=== PATIENT | female | born 1930 | race Asian ===

== ENCOUNTER → 2016-09-22 | Outpatient (CLI) | payer MEDICARE, OTHER ==
[2016-03-13 14:45] VITALS: BP 117/68
[~2016-09-22] MED LIST: ASPI-630 PO; AZIT250T PO; CALC-98 PO; CARV12.52 PO; CEFP100T PO; CIPR500T PO; DOCU-109 PO; DULO30CA2 PO; FAMO20TA5 PO; FERR325T58 PO; HYDR-2762 PO; HYDR40TA PO; INSU100C4 SQ; INSU100I13 SQ; MULT1TAB52 PO; SIMV20TA3 PO
[2016-09-22 15:35] LABS: HEMATOCRIT 36.6 % (36.0-47.0); HEMOGLOBIN 12.1 g/dL (12.0-15.5)
[2016-09-22 15:56] LABS: ALBUMIN 3.9 g/dL (3.4-5.0); CALCIUM 9.2 mg/dL (8.5-10.1); CREATININE 1.8 mg/dL (0.6-1.0); GFR 26.8; MAGNESIUM 1.9 mg/dL (1.8-2.4); PHOSPHORUS 4.1 mg/dL (2.6-4.7); POTASSIUM 4.2 mmol/L (3.5-5.1)
[2016-09-23 04:12] LABS: MICRO CREAT RATIO <15.4 mg/g creat (0.0-30.0); MICROALB RD UR <12.0 ug/mL (Not Estab.); PROTEIN RANDOM URINE 20.6 mg/dL (Not Estab.)
[2016-09-23 06:11] LABS: CALCIUM PTH 9.5 mg/dL (8.7-10.3); CREATININE PTH 1.75 mg/dL (0.57-1.00); PTH INTACT 41 pg/mL (15-65)
== END | disposition home or self-care (01) ==
LOC: LAB 14:56
PROVIDERS: ATTEND Nurse Practitioner Family
DX: N18.3 Chronic kidney disease, stage 3 (moderate) (principal); D64.9 Anemia, unspecified; E79.0 Hyperuricemia without signs of inflammatory arthritis and tophaceous disease; E55.9 Vitamin D deficiency, unspecified; R80.9 Proteinuria, unspecified
CPT/HCPCS: 36415; 80069; 82043; 82306; 82570; 82728; 83540; 83550; 83735; 83970; 84156; 84550; 85014; 85018

== ENCOUNTER → 2016-12-21 | Outpatient (CLI) | payer MEDICARE, OTHER ==
[2016-03-13 14:45] VITALS: BP 117/68
--- NOTE | 2016-12-21 12:55 | RAD ---
Indication chronic knee pain. AP oblique and lateral views of the right knee were obtained as well as AP and lateral views of the left. Views of the right knee demonstrate postoperative changes associated with the distal femur. There is chronic deformity involving the distal femoral diaphysis which is likely posttraumatic. Lucencies in the distal femur are probably chronic. There is probable bony demineralization. An acute bony finding is not seen. A vascular stent associated with the SFA is noted. Chondrocalcinosis is noted On the left there is suspect bony demineralization. There is chondrocalcinosis. An acute bony finding is not seen. Advanced degenerative changes involving the knee are not seen. SFA vascular stent is noted. IMPRESSION: Chronic changes involving the knees. An acute finding is not seen
== END | disposition home or self-care (01) ==
LOC: DXRADRC 12:19
PROVIDERS: ATTEND Nurse Practitioner Family
DX: M11.262 Other chondrocalcinosis, left knee (principal); M11.261 Other chondrocalcinosis, right knee; V29.9XXD Motorcycle rider (driver) (passenger) injured in unspecified traffic accident, subsequent encounter
CPT/HCPCS: 73560

== ENCOUNTER 2017-02-07 06:29 | Emergency (ER) | payer MEDICARE, OTHER ==
[~2017-02-07] VITALS: Ht 149.9 cm; Wt 42.0 kg
[2017-02-07] MEDS ORDERED: ONDANSETRON PF 4 MG/2 ML VIAL. IV ONE (06:45)
[2017-02-07] MEDS ORDERED: 0.9 % SODIUM CHLORIDE 10 ML DISP.SYRIN. IV PRN (06:45)
[2017-02-07] MEDS ORDERED: IV NORMAL SALINE 1,000ML 1,000 ML IV SCH (06:45)
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
[2017-02-07] MEDS: HYDROmorphone PF 1 MG/ML DISP.SYRIN IV/SQ PRN ×2 (06:50→08:42)
--- NOTE | 2017-02-07 07:22 | RAD ---
Examination: Single portable chest History: History of pain Comparison: 03/12/2016 Finding: The cardiomediastinal grossly appears unremarkable. Medial sternotomy wires are identified. There is a 5 cm opacity identified in the left suprahilar region in the left upper lobe of the lung likely mass or focus of consolidation. Multiple kyphoplasty changes identified. Impression: 5 cm mass or focus of consolidation identified in the left upper lobe in the left suprahilar region. Recommend follow-up CT for further evaluation.
[2017-02-07 07:48] LABS: BASO # 0.1 x10^3/uL (0.0-0.2); BASO % 1 % (0-3); EOS % 0 % (0-3); HEMATOCRIT 38.1 % (36.0-47.0); HEMOGLOBIN 12.7 g/dL (12.0-15.5); LYMPH # 0.7 x10^3/uL (1.0-4.8); LYMPH % 8 % (24-48); MEAN CORPUSCULAR HEMOGLOBIN 33 pg (25-35); MEAN CORPUSCULAR HGB CONC 34 g/dL (31-37); MEAN CORPUSCULAR VOLUME 100 fL (79-100); MONO # 0.2 x10^3/uL (0.0-1.1); MONO % 2 % (0-9); NEUT # 7.9 x10^3uL (1.8-7.7); NEUT % 88 % (31-73); PLATELET COUNT 298 x10^3/uL (140-400); RED BLOOD COUNT 3.82 x10^6/uL (3.50-5.40); RED CELL DISTRIBUTION WIDTH 13.4 % (11.5-14.5); WHITE BLOOD COUNT 8.9 x10^3/uL (4.0-11.0)
[2017-02-07 08:36] LABS: BILIRUBIN,URINE NEG (NEG); CLARITY,URINE CLEAR; COLOR,URINE STRAW; GLUCOSE,URINE >=1000 mg/dL (NEG)
[2017-02-07 08:37] LABS: BACTERIA,URINE 0 /HPF (0-FEW); NITRITE,URINE NEG (NEG); RBC,URINE OCC /HPF (0-2); SQUAMOUS EPITHELIAL CELL,UR OCC /LPF; UROBILINOGEN,URINE 0.2 mg/dL (0.2 mg/dL); WBC,URINE RARE /HPF (0-4)
[2017-02-07 08:56] LABS: ALBUMIN 3.6 g/dL (3.4-5.0); ALBUMIN/GLOBULIN RATIO 0.8 (1.0-1.7); CALCIUM 9.6 mg/dL (8.5-10.1); CREATININE 0.9 mg/dL (0.6-1.0); GFR 59.7; MAGNESIUM 1.4 mg/dL (1.8-2.4); POTASSIUM 3.9 mmol/L (3.5-5.1); TOTAL BILIRUBIN 0.4 mg/dL (0.2-1.0); TOTAL PROTEIN 8.3 g/dL (6.4-8.2)
--- NOTE | 2017-02-07 09:03 | RAD ---
Examination: CT of the abdomen pelvis without contrast History: History of sudden onset of abdominal pain Comparison: 05/07/2009 Technique: Axial CT images of the abdomen and pelvis were performed without contrast. Coronal and sagittal reformats were performed. PQRS Compliance Statement: One or more of the following individualized dose reduction techniques were utilized for this examination: 1. Automated exposure control 2. Adjustment of the mA and/or kV according to patient size 3. Use of iterative reconstruction technique Findings Mild bibasal lung atelectasis. No evidence of free air identified in the abdomen. The evaluation of the solid organs is limited due to lack of IV contrast. The evaluation of bowel is limited due due to lack of oral contrast. The visualized noncontrasted liver, spleen, adrenals grossly appears unremarkable. The stomach is mildly distended. There is mild to moderate thickened appearance of the distal esophagus. There is mild thickening wall thickening of the distal stomach. The small bowel is nondilated. Feces and gas noted in the colon. Few scattered colonic diverticula identified. The appendix is normal. No evidence of intrarenal system calculi or hydronephrosis. Small cystic structure identified in the left kidney measuring 1 cm could be a cyst or cystic lesion Urinary bladder is moderately distended. Schuster catheter balloon identified in the urinary bladder. Small amount of air identified in the in the bladder Severe aortic atherosclerosis. Minimal nonspecific stranding identified in the left retroperitoneum superior to the distal tail of the pancreas and about the left kidney. Right-sided inguinal hernia is identified containing fat and omentum within. There is small amount of fluid within the herniated omentum into the right inguinal hernia region. Right hip hardware identified transfixing the intertrochanteric fracture of the right femur. Kyphoplasty changes identified in the T12, L1, L2, L3 vertebral levels. There is severe compression change of L1, L3, L5 vertebral levels Severe degenerative changes identified in the visualized lumbar spine. Laminectomy changes L3 vertebra. Impression 1. Minimal nonspecific stranding identified in the left retroperitoneum superior to the distal tail of the pancreas and about the left kidney. This is nonspecific finding. Pancreatitis is less likely. Correlate with lab values. 2. Moderate thickening of the distal esophagus could represent underlying mucosal pathology or esophagitis. There is mild thickening of the distal stomach could be gastritis. Consider endoscopic evaluation. 3. Scattered colonic diverticula. 4. Small amount of air identified in the distended urinary bladder probably secondary to Schuster catheter instrumentation. 5. Small amount of fluid and fat and omentum identified in the small right inguinal hernia. 6. Severe compression changes of lumbar vertebrae as described.
[2017-02-07] MEDS ORDERED: MAGNESIUM SULFATE 2GM 50 ML IV ONE (09:30)
[2017-02-07] MEDS ORDERED: ASPIRIN 81 MG TAB.CHEW PO ONE (10:15)
[2017-02-07 10:39] LABS: HEMOGLOBIN ISTAT 13.3 gm/dL; POTASSIUM ISTAT 3.7 mmol/L (3.5-5.0)
[2017-02-07 11:25] VITALS: BP 112/63
--- NOTE | 2017-02-07 12:45 | EKG ---
[address] [address] Test Date: 2017-02-07 Test Time: 06:34:49 Pat Name: CAROLINE CARTER Department: Room: Gender: F Master Certified Rv Technician: : 1930 Requested By: BROCK FORDE Order Number: [id number] Reading MD: Measurements Intervals [place] Rate: 81 P: 64 ND: 162 QRS: 37 QRSD: 86 T: 62 QT: 412 QTc: 479 Interpretive Statements SINUS RHYTHM LEFT ATRIAL ABNORMALITY QRS(T) CONTOUR ABNORMALITY CONSISTENT WITH ANTEROSEPTAL INFARCT AGE UNDETERMINED ABNORMAL ECG RI6.01 No previous ECG available for comparison
== END 2017-02-07 12:37 | disposition short-term general hospital (02) ==
LOC: ER 06:29
DX: R10.84 Generalized abdominal pain (principal); R53.1 Weakness; E83.42 Hypomagnesemia; I16.0 Hypertensive urgency; I11.0 Hypertensive heart disease with heart failure; I50.9 Heart failure, unspecified; R94.31 Abnormal electrocardiogram [ECG] [EKG]; R79.89 Other specified abnormal findings of blood chemistry; E11.65 Type 2 diabetes mellitus with hyperglycemia; G89.29 Other chronic pain; I25.10 Atherosclerotic heart disease of native coronary artery without angina pectoris; I25.2 Old myocardial infarction; Z95.1 Presence of aortocoronary bypass graft; Z86.73 Personal history of transient ischemic attack (TIA), and cerebral infarction without residual deficits
CPT/HCPCS: 36415; 51702; 71010; 74176; 80053; 81001; 82010; 82553; 82947; 83605; 83690; 83735; 83880; 84484; 85025; 93005; 96361; 96365; 96366; 96375; 96376; 99291; J1170; J2405; J3475; 80047; J7030

== ENCOUNTER → 2017-03-26 | Outpatient (CLI) | payer MEDICARE, OTHER ==
--- NOTE | 2017-03-26 15:16 | RAD ---
Clinical Indication: Right lower extremity pain Technique: Study is dated March 26, 2017. Grayscale, color flow and spectral waveform analysis was performed of the right lower extremity with and without compression. Findings: There is normal compressibility of all visualized vein segments. No evidence of DVT is present on grayscale or color images. There is normal phasicity of waveform. There is normal augmentation. Impression: No evidence of deep vein thrombosis.
== END | disposition home or self-care (01) ==
LOC: US 13:40
PROVIDERS: ATTEND Nurse Practitioner Family
DX: M79.604 Pain in right leg (principal)
CPT/HCPCS: 93971

== ENCOUNTER 2017-04-11 03:44 | Inpatient (IN) | payer MEDICARE, OTHER ==
[2017-04-11] VITALS (12 sets, daily range): BP systolic 81–146; BP diastolic 38–57
[~2017-04-11] VITALS: Ht 144.8 cm; Wt 42.2 kg
--- NOTE | 2017-04-11 03:48 | ED.ADGEN ---
Past History Past Medical History: Anxiety, CAD, CHF, COPD, CVA, Heart Disease, Hypertension , DC, Stroke, TIA, UTI, Other Past Surgical History: Coronary Bypass Surgery, Other Alcohol Use: None Drug Use: None Adult General Chief Complaint Chief Complaint ".. I don't feel well... " [facility] HPI Patient is a 86 year old female who presents with hx of increased nausea , vomiting x 3 days. Some complaints of dyspnea. Pt. presents with Accelerated HTN , 218/103. Pt. has extensive medical hx. of CADz,Hypothyroid, DM, Elevated Lipids, COPD, Lt. Breast mastectomy due to cancer, CHF, CVA, TIA, HTN, UTI's, CABG,Dehydration and Renal Insuf. Ect, Pt. poor historian. Pt. follows with Dr. Randa Reyes. Pt. last admitted in Jan. for Dehydration episode. Pt. per of 32 yrs advised pt. has not had any travel or specific ill contacts. Pt. has had very poor intake x 3 days. Pt. has reportedly not taken some of her meds due to nausea the last three days. Pt. advised he does not know if she had any bad food, he advised .." She only eats [place] food". Pt. has gotten very weak the last three days. Review of Systems Review of Systems Constitutional: Denies fever or chills [] Eyes: Denies change in visual acuity, redness, or eye pain [] HENT: Denies nasal congestion or sore throat [] Respiratory: Denies cough or shortness of breath [] Cardiovascular: No additional information not addressed in HPI [] GI: Denies abdominal pain, nausea, vomiting, bloody stools or diarrhea [] : Denies dysuria or hematuria [] Musculoskeletal: Denies back pain or joint pain [] Integument: Denies rash or skin lesions [] Neurologic: Denies headache, focal weakness or sensory changes [] Endocrine: Denies polyuria or polydipsia [] All other systems were reviewed and found to be within normal limits, except as documented in this note. Family History Family History Noncontributory Current Medications Current Medications Current Medications Medications (Trade) Dose Ordered Sig/Aquiles Start Time Stop Time Status Last Admin Dose Admin Clonidine HCl (Catapres) 0.1 mg 1X ONCE 04/11/17 05:15 04/11/17 05:18 DC 04/11/17 05:15 0.1 MG Enoxaparin Sodium (Lovenox) 45 mg 1X ONCE 04/11/17 06:15 04/11/17 06:16 UNV Info (Do NOT chart on this entry -- for MONITORING) 1 each PRN DAILY PRN 04/11/17 06:15 04/13/17 06:14 Labetalol HCl (Normodyne) 20 mg 1X ONCE 04/11/17 04:15 04/11/17 04:16 DC 04/11/17 04:09 20 MG Morphine Sulfate (Morphine 2mg Syringe) 2 mg 1X ONCE 04/11/17 04:45 04/11/17 04:58 DC 04/11/17 04:50 2 MG Nicardipine HCl (Cardene) 25 mg STK-MED ONCE 04/11/17 05:24 04/11/17 05:25 DC Nicardipine HCl 50 mg/Sodium Chloride 270 ml @ 0 mls/hr CONT PRN 04/11/17 05:30 04/11/17 05:37 5 MLS/HR Ondansetron HCl (Zofran) 8 mg 1X ONCE 04/11/17 05:30 04/11/17 05:31 DC 04/11/17 05:30 8 MG Potassium Chloride 100 ml @ 50 mls/hr Q1H 04/11/17 06:00 04/11/17 07:59 UNV Sodium Chloride 250 ml @ As Directed STK-MED ONCE 04/11/17 05:24 04/11/17 05:25 DC Allergies Allergies Allergies Coded Allergies Type Severity Reaction Last Updated Verified No Known Drug Allergies 05/16/14 No Physical Exam Physical Exam Constitutional: In acute distress, Chronically ill in appearance. [] HENT: Normocephalic, atraumatic, bilateral external ears normal, oropharynx dry , no oral exudates, nose normal. [] Eyes: PERRLA, EOMI, conjunctiva normal, no discharge. [] Neck: Normal range of motion, no tenderness, supple, no stridor. Old scar. Cardiovascular:Tachycardia rate regular rhythm, no murmur [] Lungs & Thorax: Bilateral breath sounds equal with scattered wheezes and some crackles on auscultation . Mid line scar, and Lt mastectomy scar. Abdomen: Bowel sounds normal, soft, lower mid abdomen tenderness, no masses, no pulsatile masses. Scar Skin: Warm, dry, no erythema, no rash. Poor turgor Back: No tenderness, no CVA tenderness. scars, kyphosis. Extremities: No tenderness, no cyanosis, no clubbing, ROM intact, no edema. Arthritic changes. Generalized weakness. Left femoral scar. Right hip scar Neurologic: Alert and oriented X 3, generalized motor weakness , no gross sensory loss, no gross focal deficits noted. states her mental status is at baseline Psychologic: Affect flat, judgement unable to determine at this time, mood depressed Current Patient Data Vital Signs Vital Signs Date Time Temp Pulse Resp B/P (MAP) Pulse Ox O2 Delivery O2 Flow Rate FiO2 04/11/17 05:41 88 161/67 (98) 97 04/11/17 05:30 20 Lab Results Laboratory Tests Test 04/11/17 04:00 04/11/17 05:05 White Blood Count 8.9 x10^3/uL (4.0-11.0) Red Blood Count 3.85 x10^6/uL (3.50-5.40) Hemoglobin 12.7 g/dL (12.0-15.5) Hematocrit 37.4 % (36.0-47.0) Mean Corpuscular Volume 97 fL (79-100) Mean Corpuscular Hemoglobin 33 pg (25-35) Mean Corpuscular Hemoglobin Concent 34 g/dL (31-37) Red Cell Distribution Width 15.3 % (11.5-14.5) H Platelet Count 310 x10^3/uL (140-400) Neutrophils (%) (Auto) 83 % (31-73) H Lymphocytes (%) (Auto) 13 % (24-48) L Monocytes (%) (Auto) 3 % (0-9) Eosinophils (%) (Auto) 1 % (0-3) Basophils (%) (Auto) 1 % (0-3) Neutrophils # (Auto) 7.4 x10^3uL (1.8-7.7) Lymphocytes # (Auto) 1.1 x10^3/uL (1.0-4.8) Monocytes # (Auto) 0.2 x10^3/uL (0.0-1.1) Eosinophils # (Auto) 0.1 x10^3/uL (0.0-0.7) Basophils # (Auto) 0.1 x10^3/uL (0.0-0.2) Prothrombin Time 11.2 SEC (9.4-11.4) Prothrombin Time INR 1.1 (0.9-1.1) PTT 24 SEC (23-33) D-Dimer (Zaida) 7.61 mg/L (0.00-0.50) H Urine Collection Type U cath Urine Color Yellow Urine Clarity Clear Urine pH 7.0 Urine Specific [place] 1.020 Urine Protein >100 mg/dl (NEG-TRACE) Urine Glucose (UA) 500 mg/dL (NEG) Urine Ketones (Stick) Neg mg/dL (NEG) Urine Blood Trace (NEG) Urine Nitrite Neg (NEG) Urine Bilirubin Neg (NEG) Urine Urobilinogen Dipstick 0.2 mg/dL (0.2 mg/dL) Urine Leukocyte Esterase Neg (NEG) Urine RBC Occ /HPF (0-2) Urine WBC Rare /HPF (0-4) Urine Squamous Epithelial Cells Occ /LPF Urine Bacteria 0 /HPF (0-FEW) Sodium Level 140 mmol/L (136-145) Potassium Level 3.0 mmol/L (3.5-5.1) L Chloride Level 102 mmol/L (98-107) Carbon Dioxide Level 25 mmol/L (21-32) Anion Gap 13 (6-14) Blood Urea Nitrogen 25 mg/dL (7-20) H Creatinine 0.9 mg/dL (0.6-1.0) Estimated GFR (Cockcroft-Gault) 59.7 BUN/Creatinine Ratio 28 (6-20) H Glucose Level 300 mg/dL (70-99) H Calcium Level 8.7 mg/dL (8.5-10.1) Magnesium Level 1.3 mg/dL (1.8-2.4) L Total Bilirubin 0.2 mg/dL (0.2-1.0) Aspartate Amino Transferase (AST) 29 U/L (15-37) Alanine Aminotransferase (ALT) 21 U/L (14-59) Alkaline Phosphatase 94 U/L (46-116) Creatine Kinase 25 U/L (26-192) L Creatine Kinase MB (Mass) 1.9 ng/mL (0.0-3.6) Creatine Kinase MB Relative Index 7.6 % (0-4) H Troponin I Quantitative < 0.017 ng/mL (0-0.055) WR-Scr-X-Type Natriuretic Peptide 5075 pg/mL (0-449) H Total Protein 7.4 g/dL (6.4-8.2) Albumin 3.1 g/dL (3.4-5.0) L Albumin/Globulin Ratio 0.7 (1.0-1.7) L Amylase Level 38 U/L (25-115) Lipase 190 U/L (73-393) Urine Opiates Screen Neg (NEG) Urine Methadone Screen Neg (NEG) Urine Barbiturates Neg (NEG) Urine Phencyclidine Screen Neg (NEG) Urine Amphetamine/Methamphetamine Neg (NEG) Urine Benzodiazepines Screen Neg (NEG) Urine Cocaine Screen Neg (NEG) Urine Cannabinoids Screen Neg (NEG) Urine Ethyl Alcohol Neg (NEG) EKG EKG My interpretation EKG shows a sinus rhythm at 81 bpm. There is some bimodal P- wave's and prolonged QT interval.[] Radiology/Procedures Radiology/Procedures My interpretation of chest x-ray shows borderline cardiomegaly. Chronic pulmonary changes with clips in left upper quadrant-mastectomy, coronary bypass sternal wires, vertebral plasty, degenerative joint changes, does have a left upper lobe infiltrate but this is present on previous x-ray of 02/07. Abdomen film shows no obvious free air under diaphragm. Does have a right upper quadrant surgical clips as well as placement of a vena cava filter. Hardware right hip. A few isolated bowel loops. My interpretation CT of head shows marked generalized atrophy, no shift, mass, edema, bleed or fracture. Generalized degenerative joint changes of cervical. CT of chest pending at time of admission- valuation of left upper lung infiltrate/scarring.(Present On last chest x-ray of 02/07) Course & Med Decision Making Course & Med Decision Making Pertinent Labs and Imaging studies reviewed. (See chart for details) Discussed presentation, testing and tx. plan with Dr. Nuñez - admit to ICU. Electrolytes still pending at time of admit- [] Final Impression Final Impression 1. Nausea/ Vomiting 2. Accelerated Hypertension 3. Dehydration 4. Hyperglycemia-diabetes 5. Elevated d-dimer 6. CHF 7. Hypokalemia 8. Hypomagnesemia 9. Malnutrition albumin 3.1 10. Dyspnea Problems: Dragon Disclaimer Dragon Disclaimer This electronic medical record was generated, in whole or in part, using a voice recognition dictation system. SILVIA ESPANA MD Apr 11, 2017 03:48
[2017-04-11] MEDS ORDERED: ONDANSETRON PF 4 MG/2 ML VIAL. IV ONE ×2 (04:15→05:30)
[2017-04-11] MEDS ORDERED: IV NORMAL SALINE 1,000ML 1,000 ML IV SCH (04:15)
[2017-04-11] MEDS ORDERED: LABETALOL 20 MG/4 ML DISP.SYRIN. IVP ONE (04:15)
[2017-04-11 04:20] LABS: BASO # 0.1 x10^3/uL (0.0-0.2); BASO % 1 % (0-3); EOS # 0.1 x10^3/uL (0.0-0.7); EOS % 1 % (0-3); HEMATOCRIT 37.4 % (36.0-47.0); HEMOGLOBIN 12.7 g/dL (12.0-15.5); LYMPH # 1.1 x10^3/uL (1.0-4.8); LYMPH % 13 % (24-48); MEAN CORPUSCULAR HEMOGLOBIN 33 pg (25-35); MEAN CORPUSCULAR HGB CONC 34 g/dL (31-37); MEAN CORPUSCULAR VOLUME 97 fL (79-100); MONO # 0.2 x10^3/uL (0.0-1.1); MONO % 3 % (0-9); NEUT # 7.4 x10^3uL (1.8-7.7); NEUT % 83 % (31-73); PLATELET COUNT 310 x10^3/uL (140-400); RED BLOOD COUNT 3.85 x10^6/uL (3.50-5.40); RED CELL DISTRIBUTION WIDTH 15.3 % (11.5-14.5); WHITE BLOOD COUNT 8.9 x10^3/uL (4.0-11.0)
[2017-04-11] MEDS ORDERED: MORPHINE SULFATE 2 MG/ML DISP.SYRIN. IV ONE (04:45)
[2017-04-11] MEDS ORDERED: cloNIDine HCL 0.1 MG TABLET PO ONE (05:15)
[2017-04-11] MEDS ORDERED: IV NORMAL SALINE 250ML 250 ML ONE (05:24)
[2017-04-11 05:32] LABS: CLARITY,URINE CLEAR; COLOR,URINE YELLOW
[2017-04-11 05:33] LABS: BACTERIA,URINE 0 /HPF (0-FEW); BILIRUBIN,URINE NEG (NEG); GLUCOSE,URINE 500 mg/dL (NEG); NITRITE,URINE NEG (NEG); RBC,URINE OCC /HPF (0-2); SQUAMOUS EPITHELIAL CELL,UR OCC /LPF; UROBILINOGEN,URINE 0.2 mg/dL (0.2 mg/dL); WBC,URINE RARE /HPF (0-4)
[2017-04-11 05:36] LABS: BARBITURATES NEG (NEG); BENZODIAZEPINES NEG (NEG); CANNABINOIDS NEG (NEG); COCAINE NEG (NEG); METHADONE NEG (NEG); OPIATES NEG (NEG); PHENCYCLIDINE NEG (NEG)
--- NOTE | 2017-04-11 05:36 | RAD ---
INDICATION: Mental status change with nausea. Concern for central nervous system pathology or cervical spine injury COMPARISON: February 2016 TECHNIQUE: Axial CT images obtained through the head and cervical spine without intravenous contrast. Coronal and sagittal reformats processed of cervical spine. One or more of the following individualized dose reduction techniques were utilized for this examination: 1. Automated exposure control; 2. Adjustment of the mA and/or kV according to patient size; 3. Use of iterative reconstruction technique. FINDINGS: Head: Motion somewhat limits exam. Calcific atherosclerosis. No evidence of midline shift. Suprasellar cistern is not effaced. Global prominence of ventricles and sulci. Multifocal regions of low attenuation within the white matter. Nonspecific but can be seen with chronic small vessel ischemic disease. More focal region of low-attenuation in the left frontal region is again seen and could be from remote infarct. No definite acute hemorrhage. Cervical: No definite acute fracture. No significant malalignment. No evidence of perivertebral hematoma. Degenerative changes throughout the cervical spine with multilevel central canal and neural foraminal stenosis. Severe calcific atherosclerosis. There is some suspected cystic changes at the lung apices as well as interstitial thickening most prominent at left lung apex. IMPRESSION: No acute intracranial hemorrhage. Evidence of old infarct as well as low-attenuation within the white matter. Nonspecific in nature but can be seen with chronic small vessel ischemic disease. No definite acute fracture or dislocation of the cervical spine. Multilevel degenerative changes throughout the cervical spine with central canal and neural foraminal stenosis. Cystic changes at the partially visualized lung apices. Would correlate for possible causes such as emphysema. There is also some mild interstitial thickening suspected at lung apices. Could be a chronic finding but mild edema can also have this appearance. Electronically signed by: Omkar Swartz MD (04/11/2017 5:32 AM) [facility] [place]
[2017-04-11 05:37] LABS: AMPHETAMINE/METHAMPHETAMINE NEG (NEG)
[2017-04-11 05:51] LABS: ALBUMIN 3.1 g/dL (3.4-5.0); ALBUMIN/GLOBULIN RATIO 0.7 (1.0-1.7); CALCIUM 8.7 mg/dL (8.5-10.1); CREATININE 0.9 mg/dL (0.6-1.0); GFR 59.7; MAGNESIUM 1.3 mg/dL (1.8-2.4); TOTAL BILIRUBIN 0.2 mg/dL (0.2-1.0); TOTAL PROTEIN 7.4 g/dL (6.4-8.2)
[2017-04-11] MEDS ORDERED: POTASSIUM CHLORIDE 20MEQ 100 ML IV SCH (06:00)
[2017-04-11] MEDS ORDERED: CONTRAST GIVEN MC PRN (06:15)
[2017-04-11] MEDS ORDERED: INSULIN REGULAR 150 UNIT in 0.9 % SODIUM CHLORIDE 150ML 150 ML IV ONE (06:30)
[2017-04-11] MEDS ORDERED: MAGNESIUM SULFATE 2GM 50 ML IV ONE (06:30)
[2017-04-11] MEDS ORDERED: IOHEXOL 300 MG/ML 75 ML VIAL. IV ONE (06:30)
[2017-04-11] MEDS ORDERED: ENOXAPARIN ** NOTE DOSE ** SYRINGE SQ ONE (07:00)
--- NOTE | 2017-04-11 07:03 | RAD ---
INDICATION: Omni 300 75ml IV given, pe protocol
Dyspnea, elevated DDimer
Hx Diabetes - not on metformin, Lung cancer COMPARISON: None. TECHNIQUE: Axial CT images obtained through the chest. Intravenous contrast utilized. Angiogram 3D images processed per protocol. One or more of the following individualized dose reduction techniques were utilized for this examination: 1. Automated exposure control; 2. Adjustment of the mA and/or kV according to patient size; 3. Use of iterative reconstruction technique. FINDINGS: Large spiculated mass left upper lung measuring approximately 46 x 50 x 43 mm. There is adjacent interstitial and nodular opacities throughout the adjacent lung most severe in the left upper lung. Linear opacity in the right lung, could be atelectasis or scarring. There are some patchy groundglass opacities in the right lung including superior segment right lower lobe. There are some regions of bronchiectasis with peribronchial thickening. There are some more subtle regions of nodularity within the right lung. In partially visualized abdomen there is postcholecystectomy changes with common bile duct dilated up to 18 mm. Moderate hiatal hernia. Severe calcific atherosclerosis. Severe coronary artery calcific atherosclerosis. There are some scattered lymph nodes seen within the mediastinum and left hilar region which are mildly prominent. The patient's left upper lung mass abuts the mediastinum with no definite fat plane seen between the mass and a portion of the adjacent aorta. Also abuts and narrows the pulmonary arteries extending to the left upper lobe. There is some apparent old rib fractures. Poststernotomy changes. Metallic density structures in the left axilla, likely postprocedural. There is likely some old left rib fractures. Compression fractures are identified at T7, T12, L1 and L2 with kyphoplasty changes. There is retropulsion and central canal narrowing associated with the L1 fracture. There couple of subcentimeter sclerotic foci in the osseous structures. This is very commonly seen and could be from bone island but given the other findings neoplastic involvement is not excluded on this exam. Main pulmonary artery is prominent in size measuring up to about 29 mm. Many of the pulmonary artery branches extending to left upper lung are destroyed by the left upper lung mass. There is a nodule or small aneurysmal outpouching of the descending thoracic aorta in the left lower chest measuring up to about 7 mm. No embolus in main, right main or left main pulmonary artery. IMPRESSION: 1. Large left upper lung mass with adjacent interstitial and nodular opacities within the left lung. This could be secondary to a lung neoplasm with adjacent interstitial spread of tumor. Cannot exclude superimposed infectious etiology given these findings. 2. There are some enlarged lymph nodes within the mediastinum and left hilum. Given the other finding this could be involved with the neoplasm although some of these could be reactive as well. 3. Severe calcific atherosclerosis including of coronary arteries. 4. Hiatal hernia. 5. The partially visualized common bile duct is dilated. This could be from the patient's postcholecystectomy state but cannot exclude a pathologic process such as a distal stricture, stone or lesion. 6. No embolus in the main pulmonary arteries. The pulmonary arteries to left upper lung appear largely destroyed by the left upper lung mass. Prominent size of the main pulmonary artery. Causes such as pulmonary artery hypertension are possible. 7. Groundglass opacity within the right lung. Could be infectious or inflammatory in nature but given the patient's other findings neoplastic causes not excluded. Electronically signed by: Omkar Swartz MD (04/11/2017 7:00 AM) [id number]
--- NOTE | 2017-04-11 07:03 | EKG ---
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
--- NOTE | 2017-04-11 07:23 | RAD ---
Acute abdomen series with chest, 04/11/2017: History: Abdominal pain and nausea The abdominal gas pattern is unremarkable. No free air seen in the abdomen. An inferior vena cava filter is in place at the L2-3 level. Surgical clips are present in the right upper quadrant. There are scattered vascular calcifications. A vascular stent is projected over the left common iliac region. The bony structures are demineralized. Vertebroplasty changes are present at multiple levels in the lumbar and thoracic spine. An internal metallic fixation device is present at the right hip. There has been a previous median sternotomy. The heart size is normal. A moderate-sized left upper lobe opacity has developed since 05/16/2014. There are scattered parenchymal scars. There is no evidence of pleural fluid or pneumothorax. Surgical clips are present in the left axillary region. IMPRESSION: 1. No acute abdominal abnormality is detected. 2. New left upper lobe pulmonary opacity suggesting a pulmonary neoplasm. An infectious process is less likely.
[2017-04-11] MEDS ORDERED: DEXTROSE 50% 25 GM / 50ML DISP.SYRIN. IV PRN (07:30)
[2017-04-11] MEDS: INSULIN ASPART 300 UNITS/3 ML INSULN.PEN SQ SCH ×4 (08:13→21:21)
[2017-04-11] MEDS ORDERED: CARVEDILOL 12.5 MG TABLET PO SCH ×3 (09:00→17:00)
--- NOTE | 2017-04-11 09:36 | PDOC2 ---
YEIMY OBREGON APRN 04/11/17 0936: CONSULT Date of Admission DATE: 04/11/17 TIME: 09:19 Reason for Consult: hypertension Problem List Problems Medical Problems: (1) Dehydration Status: Acute History of Present Illness Ms Reyes is an 85 year old female with history of coronary artery disease, CABG , PAD with stents and CVA. She presented to the ED with complaints of several days nausea and vomiting. She was noted to have significantly elevated blood pressure so Cardene was started and consult was called. She is currently resting quietly with family at bedside. She has had no chest pain. She does have some dyspnea that is at baseline. She follows with [facility] cardiology. She is now tolerating oral medications Past Medical History hypertension, osteoporosis, CAD, OH, CVA, TIA, PVD, diabetes mellitus, dyslipidemia, chronic low back pain, depression, chronic kidney disease, amenia , COPD She normally follows with Dr Ba for CAD Echo 02/2016 The left ventricle is hyperdynamic. The Ejection Fraction is 70%. There is normal LV segmental wall motion. Tissue Doppler imaging reveals mild left ventricular diastolic dysfunction. Doppler and Color Flow revealed mild aortic regurgitation. Doppler and Color Flow revealed mild tricuspid regurgitation. The PA pressure was estimated at 30 mmHg. Past Surgical History cholecystectomy, neck surgery, hysterectomy, left mastectomy, vertebroplasty, PAD with stent, Hip surgery Family History CAD, CAF, OH, CABG Social History non smoker, no significant ETOH, no illicit drugs Current Medications Current Medications Sodium Chloride 1,000 ml @ 1,000 mls/hr Q1H IV Last administered on 04:15; Start 04/11/17 at 04:15; Stop 04/11/17 at 05:14; Status DC Ondansetron HCl (Zofran) 8 mg 1X ONCE IV Last administered on 04/11/17 04:07 ; Start 04/11/17 at 04:15; Stop 04/11/17 at 04:16; Status DC Labetalol HCl (Normodyne) 20 mg 1X ONCE IVP Last administered on 04/11/17 04 :09; Start 04/11/17 at 04:15; Stop 04/11/17 at 04:16; Status DC Morphine Sulfate (Morphine 2mg Syringe) 2 mg 1X ONCE IV Last administered on 04/11/17 04:50; Start 04/11/17 at 04:45; Stop 04/11/17 at 04:58; Status DC Clonidine HCl (Catapres) 0.1 mg 1X ONCE PO Last administered on 04/11/17 05: 15; Start 04/11/17 at 05:15; Stop 04/11/17 at 05:18; Status DC Nicardipine HCl 50 mg/Sodium Chloride 270 ml @ 0 mls/hr CONT PRN IV SEE I/O RECORD Last administered on 04/11/17 05:37; Start 04/11/17 at 05:30 Ondansetron HCl (Zofran) 8 mg 1X ONCE IV Last administered on 04/11/17 05:30 ; Start 04/11/17 at 05:30; Stop 04/11/17 at 05:31; Status DC Sodium Chloride 250 ml @ As Directed STK-MED ONCE .ROUTE ; Start 04/11/17 at 05:24; Stop 04/11/17 at 05:25; Status DC Nicardipine HCl (Cardene) 25 mg STK-MED ONCE IV ; Start 04/11/17 at 05:24; Stop 04/11/17 at 05:25; Status DC Potassium Chloride 100 ml @ 50 mls/hr Q1H IV ; Start 04/11/17 at 06:00; Stop 04/11/17 at 07:59; Status UNV Magnesium Sulfate 50 ml @ 25 mls/hr 1X ONCE IV ; Start 04/11/17 at 06:30; Stop 04/11/17 at 08:30; Status DC Insulin Human Regular 150 unit/ Sodium Chloride 151.5 ml @ 0 mls/hr 1X ONCE IV ; Start 04/11/17 at 06:30; Stop 04/11/17 at 06:31; Status DC Potassium Chloride 100 ml @ 100 mls/hr Q1H IV ; Start 04/11/17 at 06:30; Stop 04/11/17 at 10:29 Enoxaparin Sodium (Lovenox 60mg Syringe) 50 mg 1X ONCE SQ ; Start 04/11/17 at 07:00; Stop 04/11/17 at 07:01; Status DC Iohexol (Omnipaque 300 Mg/ml) 75 ml 1X ONCE IV Last administered on 06:31; Start 04/11/17 at 06:30; Stop 11/29/17 at 06:31; Status DC Info (Do NOT chart on this entry -- for MONITORING) 1 each PRN DAILY PRN MC SEE COMMENTS; Start 04/11/17 at 06:15; Stop 04/13/17 at 06:14 Insulin Aspart (NovoLOG) 0-9 UNITS QIDACHS SQ Last administered on 04/11/17t 08:13; Start 04/11/17 at 07:30 Dextrose 12.5 gm PRN Q15MIN PRN IV SEE COMMENTS; Start 04/11/17 at 07:30 Active Scripts Active Lantus Solostar (Insulin Glargine,Hum.rec.anlog) 100 Unit/1 Ml Insuln.pen 5 Unit SQ QHS LAST DOSE GIVEN: DATE: YESTERDAY TIME: AT BEDTIME NEXT DOSE DUE: DATE: TODAY TIME: AT BEDTIME Reported Colace (Docusate Sodium) 100 Mg Capsule 100 Mg PO BID LAST DOSE GIVEN: DATE: TODAY TIME: AM NEXT DOSE DUE: DATE: TODAY TIME: PM Hysingla ER (Hydrocodone Bitartrate) 40 Mg Tab.er.24h 50 Mg PO DAILYWLUN LAST DOSE GIVEN: DATE: TODAY TIME: WITH LUNCH NEXT DOSE DUE: DATE: TOMORROW TIME: WITH LUNCH Simvastatin 20 Mg Tablet 20 Mg PO QHS LAST DOSE GIVEN: DATE: YES TIME: AT BEDTIME NEXT DOSE DUE: DATE: TODAY TIME: AT BEDTIME Multivitamins (Multivitamin) 1 Each Tablet 1 Tab PO DAILY LAST DOSE GIVEN: DATE: TIME: AM NEXT DOSE DUE: DATE: TOMORROW TIME: AM Famotidine 20 Mg Tablet 20 Tab PO HS LAST DOSE GIVEN: DATE: YESTER TIME: AT BEDTIME NEXT DOSE DUE: DATE: TODAY TIME: AT BEDTIME Cymbalta (Duloxetine Hcl) 30 Mg Capsule.dr 30 Mg PO HS LAST DOSE GIVEN: DATE: YESTER TIME: AT BEDTIME NEXT DOSE DUE: DATE: TODAY TIME: AT BEDTIME Carvedilol 12.5 Mg Tablet 1 Tab PO BID LAST DOSE GIVEN: DATE: TODAY TIME: WITH BREAKFAST NEXT DOSE DUE: DATE: TODAY TIME: WITH DINNER Calcium + Vitamin D Tablet (Calcium Carbonate/Vitamin D3) 1 Each Tablet 1 Each PO BID LAST DOSE GIVEN: DATE: TODAY TIME: AM NEXT DOSE DUE: DATE: TODAY TIME: PM Aspirin 81 Mg Tab.chew 81 Mg PO DAILY LAST DOSE GIVEN: DATE: TODAY TIME: AM NEXT DOSE DUE: DATE: TOMORROW TIME: AM Allergies: Coded Allergies: No Known Drug Allergies (Unverified , 05/16/14) Review of System as per HPI General: Cooperative, No acute distress Lungs: Clear to auscultation Heart: Normal S1, Normal S2, Other (no gallops, clicks or rubs) Abdomen: Normal bowel sounds, Soft Extremities: No cyanosis, No edema VITALS Vital Signs Date Time Temp Pulse Resp B/P (MAP) Pulse Ox O2 Delivery O2 Flow Rate FiO2 04/11/17 07:52 97.2 92 20 146/57 (86) 98 Room Air Labs Laboratory Tests Test 04/11/17 04:00 04/11/17 05:05 04/11/17 07:46 White Blood Count 8.9 x10^3/uL (4.0-11.0) Red Blood Count 3.85 x10^6/uL (3.50-5.40) Hemoglobin 12.7 g/dL (12.0-15.5) Hematocrit 37.4 % (36.0-47.0) Mean Corpuscular Volume 97 fL (79-100) Mean Corpuscular Hemoglobin 33 pg (25-35) Mean Corpuscular Hemoglobin Concent 34 g/dL (31-37) Red Cell Distribution Width 15.3 % (11.5-14.5) Platelet Count 310 x10^3/uL (140-400) Neutrophils (%) (Auto) 83 % (31-73) Lymphocytes (%) (Auto) 13 % (24-48) Monocytes (%) (Auto) 3 % (0-9) Eosinophils (%) (Auto) 1 % (0-3) Basophils (%) (Auto) 1 % (0-3) Neutrophils # (Auto) 7.4 x10^3uL (1.8-7.7) Lymphocytes # (Auto) 1.1 x10^3/uL (1.0-4.8) Monocytes # (Auto) 0.2 x10^3/uL (0.0-1.1) Eosinophils # (Auto) 0.1 x10^3/uL (0.0-0.7) Basophils # (Auto) 0.1 x10^3/uL (0.0-0.2) Prothrombin Time 11.2 SEC (9.4-11.4) Prothromb Time International Ratio 1.1 (0.9-1.1) Activated Partial Thromboplast Time 24 SEC (23-33) D-Dimer (Zaida) 7.61 mg/L (0.00-0.50) Urine Collection Type U cath Urine Color Yellow Urine Clarity Clear Urine pH 7.0 Urine Specific [place] 1.020 Urine Protein >100 mg/dl (NEG-TRACE) Urine Glucose (UA) 500 mg/dL (NEG) Urine Ketones (Stick) Neg mg/dL (NEG) Urine Blood Trace (NEG) Urine Nitrite Neg (NEG) Urine Bilirubin Neg (NEG) Urine Urobilinogen Dipstick 0.2 mg/dL (0.2 mg/dL) Urine Leukocyte Esterase Neg (NEG) Urine RBC Occ /HPF (0-2) Urine WBC Rare /HPF (0-4) Urine Squamous Epithelial Cells Occ /LPF Urine Bacteria 0 /HPF (0-FEW) Sodium Level 140 mmol/L (136-145) Potassium Level 3.0 mmol/L (3.5-5.1) Chloride Level 102 mmol/L (98-107) Carbon Dioxide Level 25 mmol/L (21-32) Anion Gap 13 (6-14) Blood Urea Nitrogen 25 mg/dL (7-20) Creatinine 0.9 mg/dL (0.6-1.0) Estimated GFR (Cockcroft-Gault) 59.7 BUN/Creatinine Ratio 28 (6-20) Glucose Level 300 mg/dL (70-99) Calcium Level 8.7 mg/dL (8.5-10.1) Magnesium Level 1.3 mg/dL (1.8-2.4) Total Bilirubin 0.2 mg/dL (0.2-1.0) Aspartate Amino Transf (AST/SGOT) 29 U/L (15-37) Alanine Aminotransferase (ALT/SGPT) 21 U/L (14-59) Alkaline Phosphatase 94 U/L (46-116) Creatine Kinase 25 U/L (26-192) Creatine Kinase MB (Mass) 1.9 ng/mL (0.0-3.6) Creatine Kinase MB Relative Index 7.6 % (0-4) Troponin I Quantitative < 0.017 ng/mL (0-0.055) KE-Duh-I-Type Natriuretic Peptide 5075 pg/mL (0-449) Total Protein 7.4 g/dL (6.4-8.2) Albumin 3.1 g/dL (3.4-5.0) Albumin/Globulin Ratio 0.7 (1.0-1.7) Amylase Level 38 U/L (25-115) Lipase 190 U/L (73-393) Urine Opiates Screen Neg (NEG) Urine Methadone Screen Neg (NEG) Urine Barbiturates Neg (NEG) Urine Phencyclidine Screen Neg (NEG) Urine Amphetamine/Methamphetamine Neg (NEG) Urine Benzodiazepines Screen Neg (NEG) Urine Cocaine Screen Neg (NEG) Urine Cannabinoids Screen Neg (NEG) Urine Ethyl Alcohol Neg (NEG) Glucose (Fingerstick) 251 mg/dL (70-99) Images EKG - sinus rhythm, non specific st/t abn, QTC 475 CTA 1. Large left upper lung mass with adjacent interstitial and nodular opacities within the left lung. This could be secondary to a lung neoplasm with adjacent interstitial spread of tumor. Cannot exclude superimposed infectious etiology given these findings. 2. There are some enlarged lymph nodes within the mediastinum and left hilum. Given the other finding this could be involved with the neoplasm although some of these could be reactive as well. 3. Severe calcific atherosclerosis including of coronary arteries. 4. Hiatal hernia. 5. The partially visualized common bile duct is dilated. This could be from the patient's postcholecystectomy state but cannot exclude a pathologic process such as a distal stricture, stone or lesion. 6. No embolus in the main pulmonary arteries. The pulmonary arteries to left upper lung appear largely destroyed by the left upper lung mass. Prominent size of the main pulmonary artery. Causes such as pulmonary artery hypertension are possible. 7. Groundglass opacity within the right lung. Could be infectious or inflammatory in nature but given the patient's other findings neoplastic causes not excluded. CT head and C spine IMPRESSION: No acute intracranial hemorrhage. Evidence of old infarct as well as low-attenuation within the white matter. Nonspecific in nature but can be seen with chronic small vessel ischemic disease. No definite acute fracture or dislocation of the cervical spine. Multilevel degenerative changes throughout the cervical spine with central canal and neural foraminal stenosis. Cystic changes at the partially visualized lung apices. Would correlate for possible causes such as emphysema. There is also some mild interstitial thickening suspected at lung apices. Could be a chronic finding but mild edema can also have this appearance. Abd series IMPRESSION: 1. No acute abdominal abnormality is detected. 2. New left upper lobe pulmonary opacity suggesting a pulmonary neoplasm. An infectious process is less likely. Assessment/Plan 1. accelerated hypertension - likely secondary to GI upset and missed medications. Resume home coreg and titrate off Cardene. 2. Gastroenteritis - taking oral at this time. per IM 3. dehydration and electrolyte imbalance - per IM 4. CAD/CABG status - request recent records from [facility]. Check echo. no acute EKG changes. Angina free. Continue med Rx. 5. lung CA - she apparently has follow up with oncology in Apr for POC 6. PHTN 7. hyperlipidemia 8. diabetes mellitus Problems: TEDDY FELTON MD 04/11/17 1600: CONSULT Allergies: Coded Allergies: No Known Drug Allergies (Unverified , 05/16/14) Assessment/Plan Pt. seen and examined. Agree with above [facility] note. Echo wnl. SUpportive care. Thanks for consult. Problems: YEIMY OBREGON APRN Apr 11, 2017 09:36 TEDDY FELTON MD Apr 11, 2017 16:00
[2017-04-11] MEDS ORDERED: INSU100I17 SQ (09:45)
[2017-04-11] MEDS ORDERED: INSU100I13 SQ (09:45)
[2017-04-11] MEDS ORDERED: ONDANSETRON PF 4 MG/2 ML VIAL. IV PRN (10:30)
[2017-04-11] MEDS: POTASSIUM CHLORIDE 10MEQ 100 ML IV SCH ×4 (12:04→16:06)
[2017-04-11] MEDS ORDERED: POTASSIUM CHLORIDE 10MEQ 100 ML IV ONE (15:04)
--- NOTE | 2017-04-11 16:57 | CARD ---
APPROVED REPORT EXAM: LIMITED Two-dimensional echocardiogram. Other Information Quality : Average Rhythm : NSR INDICATION Hypertension/HCVD Cardiac Disease: CAD 2D DIMENSIONS Left Atrium(2D)2.8 (1.6-4.0cm)IVSd1.2 (0.7-1.1cm) Aortic Root(2D)2.8 (2.0-3.7cm)LVDd3.4 (3.9-5.9cm) PWd1.2 (0.7-1.1cm)LVDs2.2 (2.5-4.0cm) FS (%) 35.1 %SV31.9 ml LVEF(%)65.6 (>50%) LEFT VENTRICLE The left ventricle is normal size. There is borderline concentric left ventricular hypertrophy. Left ventricle systolic function is normal. The Ejection Fraction is 60-65%. There is normal LV segmental wall motion. RIGHT VENTRICLE The right ventricle is normal size. The right ventricular systolic function is normal. ATRIA The left atrium size is normal. GREAT VESSELS The aortic root is normal in size. PERICARDIAL EFFUSION There is no evidence of significant pericardial effusion. Critical Notification Critical Value: No <Conclusion> Left ventricle systolic function is normal. The Ejection Fraction is 60-65%. There is normal LV segmental wall motion. Limited echo for LV function only.
[2017-04-11] MEDS: IV DEXTROSE 5 %-0.45 % NACL 1,000 ML IV SCH ×2 (17:28→18:14)
[2017-04-11] MEDS: PANTOPRAZOLE IV PUSH 40 MG VIAL. IVP SCH (17:29)
[2017-04-11] MEDS: CARVEDILOL 12.5 MG TABLET PO SCH (17:29)
[2017-04-12] VITALS (16 sets, daily range): BP systolic 88–148; BP diastolic 38–64
--- NOTE | 2017-04-12 03:25 | HP ---
ADMIT DATE: 04/11/2017 HISTORY OF PRESENT ILLNESS: This is an 86-year-old female with multiple severe medical problems who according to her threw up several times and was not able to eat and became dehydrated, was also nauseated, a little bit dyspneic and markedly elevated blood pressure of 218/103. PAST MEDICAL HISTORY: Extensive. She has lung cancer. She has a left lung tumor, which so far due to her weakness have not been able to do anything as far as radiation. She is too weak to undergo chemotherapy. Other medical problems include coronary artery disease with stent placement, hypertension, hyperlipidemia, type 2 diabetes, multiple TIAs, chronic back and knee pain and also the lung cancer was diagnosed 6 months ago. ALLERGIES: No known allergies. MEDICATIONS: Reviewed. The patient is given her hypertensive medications. REVIEW OF SYSTEMS: Unable to obtain due to patient being up all night, not feeling well and sleeping at the present time; sleeping, but arousable. Positive for stomach pain. SOCIAL HISTORY: She lives at home with her . She has a son. She quit smoking 10 years ago. No alcohol at the present time. There appears to be some weight loss, was evidenced by her weight. OBJECTIVE: VITAL SIGNS: Height 57 inches, weight 83.19 pounds, blood pressure 119/48, pulse 74, respirations 18, pulse ox 97% on room air. GENERAL: She is sleeping, but arousable. Tongue is slightly dry. Nose was patent. Throat was clear. She was able to stick her tongue out. LUNGS: Clear to auscultation. CARDIOVASCULAR: Irregular rhythm and rate. ABDOMEN: Soft, nontender. EXTREMITIES: Without edema. IMAGING: CTA shows a large left upper lung mass with opacities within the left lung. Appears to have gotten bigger according to the . Enlarged lymph nodes as well. Hiatal hernia. Missing gallbladder. Ground glass opacity in the right lung. Multilevel degenerative disk disease. ASSESSMENT: 1. Hypertensive emergency due to missing medications. She was given her Coreg today and was titrated off the Cardene drip. 2. Gastroenteritis. We will give her IV fluids should not be able to take anything p.o. 3. Dehydration. 4. Coronary artery disease, CABG. 5. Left upper lobe lung spiculated mass. 6. Pulmonary hypertension. 7. Type 2 diabetes. 8. Very weak, frail, elderly. PLAN: She is a full code and monitor her condition and cardiology is helping and hopefully she will perk up a little bit. LEONCIO HORTON DO DR: LEFTY/anayeli JOB#: [id number] / [id number]
[2017-04-12 06:38] LABS: CALCIUM 8.2 mg/dL (8.5-10.1); CREATININE 1.1 mg/dL (0.6-1.0); GFR 47.3; POTASSIUM 3.8 mmol/L (3.5-5.1)
[2017-04-12 06:40] LABS: BASO # 0.1 x10^3/uL (0.0-0.2); BASO % 2 % (0-3); EOS # 0.2 x10^3/uL (0.0-0.7); EOS % 2 % (0-3); HEMATOCRIT 25.8 % (36.0-47.0); HEMOGLOBIN 8.5 g/dL (12.0-15.5); LYMPH # 1.1 x10^3/uL (1.0-4.8); LYMPH % 17 % (24-48); MEAN CORPUSCULAR HEMOGLOBIN 33 pg (25-35); MEAN CORPUSCULAR HGB CONC 33 g/dL (31-37); MEAN CORPUSCULAR VOLUME 99 fL (79-100); MONO # 0.4 x10^3/uL (0.0-1.1); MONO % 7 % (0-9); NEUT # 4.5 x10^3uL (1.8-7.7); NEUT % 72 % (31-73); PLATELET COUNT 187 x10^3/uL (140-400); RED BLOOD COUNT 2.61 x10^6/uL (3.50-5.40); RED CELL DISTRIBUTION WIDTH 15.3 % (11.5-14.5); WHITE BLOOD COUNT 6.3 x10^3/uL (4.0-11.0)
[2017-04-12] MEDS: PANTOPRAZOLE IV PUSH 40 MG VIAL. IVP SCH (07:27)
[2017-04-12] MEDS: IV DEXTROSE 5 %-0.45 % NACL 1,000 ML IV SCH (07:28)
[2017-04-12] MEDS: INSULIN ASPART 300 UNITS/3 ML INSULN.PEN SQ SCH ×4 (07:28→21:13)
[2017-04-12] MEDS: CARVEDILOL 12.5 MG TABLET PO SCH ×2 (08:00→17:00)
[2017-04-12] MEDS: MEGESTROL 400 MG/10 ML ORAL.SUSP. PO SCH ×3 (10:00→21:00)
--- NOTE | 2017-04-12 11:51 | PDOC ---
PROGRESS NOTES Diagnosis Problem Problems Medical Problems: (1) Dehydration Status: Acute Assessment Problems Medical Problems: (1) Dehydration Status: Acute 1. accelerated hypertension - likely secondary to GI upset and missed medications. Off Cardene since yesterday am. Resumed home Coreg. BP low last pm. Hold coreg for now and will need dose reduction. 2. Gastroenteritis - taking oral at this time. per IM 3. dehydration and electrolyte imbalance - per IM 4. CAD/CABG status - request recent records from [facility]. Check echo. no acute EKG changes. Angina free. Continue med Rx. 5. lung CA - she apparently has follow up with oncology in Apr for POC 6. PHTN 7. hyperlipidemia 8. diabetes mellitus 9. anemia - ?dilutional, mgmt per IM Hospice eval was requested by patient and family. Will consult. Problems: Subjective awake and alert today, "feeling better", no chest pain, no dyspnea Objective Vital Signs Date Time Temp Pulse Resp B/P (MAP) Pulse Ox O2 Delivery O2 Flow Rate FiO2 04/12/17 11:08 97.2 04/12/17 09:40 67 22 119/51 (73) 95 Room Air Intake and Output 04/12/17 06:59 Intake Total 2770 ml Output Total 950 ml Balance 1820 ml Intake Oral 400 ml IV Total 2370 ml Output Urine Total 950 ml Abdomen: Normal bowel sounds, Soft Heart: Regular rate, Normal S1, Normal S2 Extremities: No edema General: Alert, Oriented X3, Cooperative, No acute distress Lungs: Clear to auscultation Psych/Mental Status: Mental status NL, Mood NL Review of Relevant I have reviewed the following items cherelle (where applicable) has been applied. Labs Laboratory Tests Test 04/11/17 04:00 04/11/17 05:05 04/11/17 07:46 04/11/17 10:10 White Blood Count 8.9 x10^3/uL (4.0-11.0) Red Blood Count 3.85 x10^6/uL (3.50-5.40) Hemoglobin 12.7 g/dL (12.0-15.5) Hematocrit 37.4 % (36.0-47.0) Mean Corpuscular Volume 97 fL (79-100) Mean Corpuscular Hemoglobin 33 pg (25-35) Mean Corpuscular Hemoglobin Concent 34 g/dL (31-37) Red Cell Distribution Width 15.3 % (11.5-14.5) Platelet Count 310 x10^3/uL (140-400) Neutrophils (%) (Auto) 83 % (31-73) Lymphocytes (%) (Auto) 13 % (24-48) Monocytes (%) (Auto) 3 % (0-9) Eosinophils (%) (Auto) 1 % (0-3) Basophils (%) (Auto) 1 % (0-3) Neutrophils # (Auto) 7.4 x10^3uL (1.8-7.7) Lymphocytes # (Auto) 1.1 x10^3/uL (1.0-4.8) Monocytes # (Auto) 0.2 x10^3/uL (0.0-1.1) Eosinophils # (Auto) 0.1 x10^3/uL (0.0-0.7) Basophils # (Auto) 0.1 x10^3/uL (0.0-0.2) Prothrombin Time 11.2 SEC (9.4-11.4) Prothromb Time International Ratio 1.1 (0.9-1.1) Activated Partial Thromboplast Time 24 SEC (23-33) D-Dimer (Zaida) 7.61 mg/L (0.00-0.50) Urine Collection Type U cath Urine Color Yellow Urine Clarity Clear Urine pH 7.0 Urine Specific Lawson 1.020 Urine Protein >100 mg/dl (NEG-TRACE) Urine Glucose (UA) 500 mg/dL (NEG) Urine Ketones (Stick) Neg mg/dL (NEG) Urine Blood Trace (NEG) Urine Nitrite Neg (NEG) Urine Bilirubin Neg (NEG) Urine Urobilinogen Dipstick 0.2 mg/dL (0.2 mg/dL) Urine Leukocyte Esterase Neg (NEG) Urine RBC Occ /HPF (0-2) Urine WBC Rare /HPF (0-4) Urine Squamous Epithelial Cells Occ /LPF Urine Bacteria 0 /HPF (0-FEW) Sodium Level 140 mmol/L (136-145) Potassium Level 3.0 mmol/L (3.5-5.1) Chloride Level 102 mmol/L (98-107) Carbon Dioxide Level 25 mmol/L (21-32) Anion Gap 13 (6-14) Blood Urea Nitrogen 25 mg/dL (7-20) Creatinine 0.9 mg/dL (0.6-1.0) Estimated GFR (Cockcroft-Gault) 59.7 BUN/Creatinine Ratio 28 (6-20) Glucose Level 300 mg/dL (70-99) Calcium Level 8.7 mg/dL (8.5-10.1) Magnesium Level 1.3 mg/dL (1.8-2.4) Total Bilirubin 0.2 mg/dL (0.2-1.0) Aspartate Amino Transf (AST/SGOT) 29 U/L (15-37) Alanine Aminotransferase (ALT/SGPT) 21 U/L (14-59) Alkaline Phosphatase 94 U/L (46-116) Creatine Kinase 25 U/L (26-192) Creatine Kinase MB (Mass) 1.9 ng/mL (0.0-3.6) Creatine Kinase MB Relative Index 7.6 % (0-4) Troponin I Quantitative < 0.017 ng/mL (0-0.055) SR-Mes-U-Type Natriuretic Peptide 5075 pg/mL (0-449) Total Protein 7.4 g/dL (6.4-8.2) Albumin 3.1 g/dL (3.4-5.0) Albumin/Globulin Ratio 0.7 (1.0-1.7) Amylase Level 38 U/L (25-115) Lipase 190 U/L (73-393) Thyroid Stimulating Hormone (TSH) 0.174 uIU/mL (0.358-3.740) Urine Opiates Screen Neg (NEG) Urine Methadone Screen Neg (NEG) Urine Barbiturates Neg (NEG) Urine Phencyclidine Screen Neg (NEG) Urine Amphetamine/Methamphetamine Neg (NEG) Urine Benzodiazepines Screen Neg (NEG) Urine Cocaine Screen Neg (NEG) Urine Cannabinoids Screen Neg (NEG) Urine Ethyl Alcohol Neg (NEG) Glucose (Fingerstick) 251 mg/dL (70-99) Nasal Screen MRSA (PCR) Negative (Negative) Test 04/11/17 11:31 04/11/17 16:52 04/11/17 21:15 04/11/17 21:57 Glucose (Fingerstick) 171 mg/dL (70-99) 108 mg/dL (70-99) 427 mg/dL (70-99) 360 mg/dL (70-99) Test 04/11/17 23:34 04/12/17 01:23 04/12/17 03:14 04/12/17 05:45 Glucose (Fingerstick) 171 mg/dL (70-99) 98 mg/dL (70-99) 153 mg/dL (70-99) White Blood Count 6.3 x10^3/uL (4.0-11.0) Red Blood Count 2.61 x10^6/uL (3.50-5.40) Hemoglobin 8.5 g/dL (12.0-15.5) Hematocrit 25.8 % (36.0-47.0) Mean Corpuscular Volume 99 fL (79-100) Mean Corpuscular Hemoglobin 33 pg (25-35) Mean Corpuscular Hemoglobin Concent 33 g/dL (31-37) Red Cell Distribution Width 15.3 % (11.5-14.5) Platelet Count 187 x10^3/uL (140-400) Neutrophils (%) (Auto) 72 % (31-73) Lymphocytes (%) (Auto) 17 % (24-48) Monocytes (%) (Auto) 7 % (0-9) Eosinophils (%) (Auto) 2 % (0-3) Basophils (%) (Auto) 2 % (0-3) Neutrophils # (Auto) 4.5 x10^3uL (1.8-7.7) Lymphocytes # (Auto) 1.1 x10^3/uL (1.0-4.8) Monocytes # (Auto) 0.4 x10^3/uL (0.0-1.1) Eosinophils # (Auto) 0.2 x10^3/uL (0.0-0.7) Basophils # (Auto) 0.1 x10^3/uL (0.0-0.2) Sodium Level 140 mmol/L (136-145) Potassium Level 3.8 mmol/L (3.5-5.1) Chloride Level 109 mmol/L (98-107) Carbon Dioxide Level 20 mmol/L (21-32) Anion Gap 11 (6-14) Blood Urea Nitrogen 22 mg/dL (7-20) Creatinine 1.1 mg/dL (0.6-1.0) Estimated GFR (Cockcroft-Gault) 47.3 Glucose Level 170 mg/dL (70-99) Calcium Level 8.2 mg/dL (8.5-10.1) Magnesium Level 2.0 mg/dL (1.8-2.4) Test 04/12/17 07:21 04/12/17 11:32 Glucose (Fingerstick) 152 mg/dL (70-99) 207 mg/dL (70-99) Microbiology 04/11/17 Blood Culture - Preliminary, Resulted NO GROWTH AFTER 1 DAY Medications Current Medications Sodium Chloride 1,000 ml @ 1,000 mls/hr Q1H IV Last administered on 04:15; Start 04/11/17 at 04:15; Stop 04/11/17 at 05:14; Status DC Ondansetron HCl (Zofran) 8 mg 1X ONCE IV Last administered on 04/11/17 04:07 ; Start 04/11/17 at 04:15; Stop 04/11/17 at 04:16; Status DC Labetalol HCl (Normodyne) 20 mg 1X ONCE IVP Last administered on 04/11/17 04 :09; Start 04/11/17 at 04:15; Stop 04/11/17 at 04:16; Status DC Morphine Sulfate (Morphine 2mg Syringe) 2 mg 1X ONCE IV Last administered on 04/11/17 04:50; Start 04/11/17 at 04:45; Stop 04/11/17 at 04:58; Status DC Clonidine HCl (Catapres) 0.1 mg 1X ONCE PO Last administered on 04/11/17 05: 15; Start 04/11/17 at 05:15; Stop 04/11/17 at 05:18; Status DC Nicardipine HCl 50 mg/Sodium Chloride 270 ml @ 0 mls/hr CONT PRN IV SEE I/O RECORD Last administered on 04/11/17 05:37; Start 04/11/17 at 05:30 Ondansetron HCl (Zofran) 8 mg 1X ONCE IV Last administered on 04/11/17 05:30 ; Start 04/11/17 at 05:30; Stop 04/11/17 at 05:31; Status DC Sodium Chloride 250 ml @ As Directed STK-MED ONCE .ROUTE ; Start 04/11/17 at 05:24; Stop 04/11/17 at 05:25; Status DC Nicardipine HCl (Cardene) 25 mg STK-MED ONCE IV ; Start 04/11/17 at 05:24; Stop 04/11/17 at 05:25; Status DC Potassium Chloride 100 ml @ 50 mls/hr Q1H IV ; Start 04/11/17 at 06:00; Stop 04/11/17 at 07:59; Status UNV Magnesium Sulfate 50 ml @ 25 mls/hr 1X ONCE IV Last administered on 10:03; Start 04/11/17 at 06:30; Stop 04/11/17 at 08:30; Status DC Insulin Human Regular 150 unit/ Sodium Chloride 151.5 ml @ 0 mls/hr 1X ONCE IV ; Start 04/11/17 at 06:30; Stop 04/11/17 at 06:31; Status DC Potassium Chloride 100 ml @ 100 mls/hr Q1H IV Last administered on 04/11/17 16:06; Start 04/11/17 at 06:30; Stop 04/11/17 at 10:29; Status DC Enoxaparin Sodium (Lovenox 60mg Syringe) 50 mg 1X ONCE SQ Last administered on 04/11/17 10:03; Start 04/11/17 at 07:00; Stop 04/11/17 at 07:01; Status DC Iohexol (Omnipaque 300 Mg/ml) 75 ml 1X ONCE IV Last administered on 06:31; Start 04/11/17 at 06:30; Stop 04/11/17 at 06:31; Status DC Info (Do NOT chart on this entry -- for MONITORING) 1 each PRN DAILY PRN MC SEE COMMENTS; Start 04/11/17 at 06:15; Stop 04/13/17 at 06:14 Insulin Aspart (NovoLOG) 0-9 UNITS QIDACHS SQ Last administered on 04/11/17 21:21; Start 04/11/17 at 07:30 Dextrose 12.5 gm PRN Q15MIN PRN IV SEE COMMENTS; Start 04/11/17 at 07:30 Carvedilol (Coreg) 12.5 mg BIDWMEALS PO ; Start 04/11/17 at 09:30; Stop at 09:37; Status DC Carvedilol (Coreg) 25 mg DAILYWBKFT PO Last administered on 04/11/17 10:02; Start 04/11/17 at 09:00; Stop 04/11/17 at 14:37; Status DC Carvedilol (Coreg) 12.5 mg DAILYWSUP PO ; Start 04/11/17 at 17:00; Stop at 17:00; Status DC Ondansetron HCl (Zofran) 4 mg PRN Q6HRS PRN IV NAUSEA/VOMITING; Start at 10:30 Carvedilol (Coreg) 12.5 mg BIDWMEALS PO ; Start 04/11/17 at 17:00 Potassium Chloride 100 ml @ As Directed STK-MED ONCE IV ; Start 04/11/17 at 15 :04; Stop 04/11/17 at 15:05; Status DC Pantoprazole Sodium (PROTONIX VIAL for IV PUSH) 40 mg DAILYAC IVP Last administered on 04/12/17 07:27; Start 04/11/17 at 16:00 Dextrose/Sodium Chloride 1,000 ml @ 125 mls/hr Q8H IV Last administered on 07:28; Start 04/11/17 at 17:00 Dopamine HCl/ Dextrose 250 ml @ 7.075 mls/ hr CONT PRN IV SEE I/O RECORD; Start 04/11/17 at 19:00 Fentanyl Citrate (Fentanyl 2ml Vial) 25 mcg PRN Q2HR PRN IV PAIN; Start at 10:15 Megestrol Acetate (Megace) 400 mg BID PO ; Start 04/12/17 at 10:00 Active Scripts Active Reported Novolog Flexpen (Insulin Aspart) 100 Unit/1 Ml Insuln.pen 8 Unit SQ PRN PRN Lantus Solostar (Insulin Glargine,Hum.rec.anlog) 100 Unit/1 Ml Insuln.pen 12 Unit SQ QHS Colace (Docusate Sodium) 100 Mg Capsule 200 Mg PO BID LAST DOSE GIVEN: DATE: TODAY TIME: AM NEXT DOSE DUE: DATE: TODAY TIME: PM Hysingla ER (Hydrocodone Bitartrate) 40 Mg Tab.er.24h 50 Mg PO DAILYWLUN LAST DOSE GIVEN: DATE: TODAY TIME: WITH LUNCH NEXT DOSE DUE: DATE: TOMORROW TIME: WITH LUNCH Simvastatin 20 Mg Tablet 20 Mg PO QHS LAST DOSE GIVEN: DATE: YESTERDAY TIME: AT BEDTIME NEXT DOSE DUE: DATE: TODAY TIME: AT BEDTIME Multivitamins (Multivitamin) 1 Each Tablet 1 Tab PO DAILY LAST DOSE GIVEN: DATE: TODAY TIME: AM NEXT DOSE DUE: DATE: TOMORROW TIME: AM Famotidine 20 Mg Tablet 20 Tab PO HS LAST DOSE GIVEN: DATE: YESTERDAY TIME: AT BEDTIME NEXT DOSE DUE: DATE: TODAY TIME: AT BEDTIME Cymbalta (Duloxetine Hcl) 30 Mg Capsule.dr 30 Mg PO HS LAST DOSE GIVEN: DATE: YESTERDAY TIME: AT BEDTIME NEXT DOSE DUE: DATE: TODAY TIME: AT BEDTIME Carvedilol 12.5 Mg Tablet 2 Tab PO BID LAST DOSE GIVEN: DATE: TODAY TIME: WITH BREAKFAST NEXT DOSE DUE: DATE: TODAY TIME: WITH DINNER Calcium + Vitamin D Tablet (Calcium Carbonate/Vitamin D3) 1 Each Tablet 2 Tab PO BID LAST DOSE GIVEN: DATE: TODAY TIME: AM NEXT DOSE DUE: DATE: TODAY TIME: PM Aspirin 81 Mg Tab.chew 81 Mg PO DAILY LAST DOSE GIVEN: DATE: TODAY TIME: AM NEXT DOSE DUE: DATE: TOMORROW TIME: AM Vitals/I & O Vital Sign - Last 24 Hours 04/11/17 04/11/17 04/11/17 04/11/17 12:51 13:40 15:09 17:26 Pulse 69 71 71 68 Resp 17 15 15 16 B/P (MAP) 99/45 (63) 92/42 (59) 84/40 (55) 81/38 (52) Pulse Ox 96 94 95 94 O2 Delivery Room Air Room Air Room Air Room Air 04/11/17 04/11/17 04/11/17 04/11/17 17:29 18:10 19:30 19:45 Pulse 68 69 68 Resp 15 16 B/P (MAP) 81/38 98/44 (62) 92/44 (60) Pulse Ox 96 97 O2 Delivery Room Air Room Air Room Air 04/11/17 04/11/17 04/11/17 04/11/17 20:30 21:30 22:30 23:30 Temp 97.6 Pulse 64 66 62 64 Resp 16 16 16 16 B/P (MAP) 92/40 (57) 91/46 (61) 90/40 (57) 92/46 (61) Pulse Ox 96 96 97 97 O2 Delivery Room Air Room Air Room Air Room Air 04/11/17 04/12/17 04/12/17 04/12/17 23:50 00:40 02:30 03:15 Pulse 64 62 Resp 16 16 B/P (MAP) 88/38 (55) 97/44 (61) Pulse Ox 98 98 O2 Delivery Room Air Room Air Room Air Room Air 04/12/17 04/12/17 04/12/17 04/12/17 03:30 04:30 05:15 07:25 Temp 97.1 Pulse 66 64 81 Resp 14 18 18 B/P (MAP) 102/38 (59) 105/44 (64) 111/60 (77) Pulse Ox 97 96 95 O2 Delivery Room Air Room Air Room Air 04/12/17 04/12/17 04/12/17 08:00 09:40 11:08 Temp 97.2 Pulse 67 Resp 22 B/P (MAP) 119/51 (73) Pulse Ox 95 O2 Delivery Room Air Room Air Intake and Output 04/11/17 04/11/17 04/12/17 14:59 22:59 06:59 Intake Total 1470 ml 1300 ml Output Total 500 ml 450 ml Balance 970 ml 1300 ml -450 ml YEIMY OBREGON APRN Apr 12, 2017 11:51
[2017-04-12] MEDS ORDERED: MORPHINE SULFATE 20 MG/ML CONC SOLUTION. SL PRN (18:15)
[2017-04-12] MEDS ORDERED: ONDANSETRON ODT 4 MG TAB.RAPDIS PO PRN (18:15)
[2017-04-12] MEDS ORDERED: SCOPOLAMINE 1.5MG PATCH. TD SCH (20:00)
--- NOTE | 2017-04-13 01:55 | PN ---
DATE: 04/12/2017 SUBJECTIVE: An 86-year-old female in, apparently has been multiple admissions. She has a history of severe lung cancer. The patient has been having severe medical complications as a result of this, has thrown up several times, not able to eat and becoming dehydrated, nauseated, a little bit dyspneic and markedly elevated blood pressure as well as placed on the Nipride drip, brought down into range as well as IV fluids and hydration for situation there. PAST MEDICAL HISTORY: History of a large left upper lobe mass, apparently getting larger, 46 x 50 x 43 mm. Nodular opacities throughout the left upper lung, apparently growing in any case. She is basically a little better this morning. She is still very weak obviously. Family talked a little bit of her weakness. Her hemoglobin has dropped from 12 down to 8, probably from hemoconcentration, now she is a little bit rehydrated. The patient's D-dimer was elevated at 7.61, no doubt from the situation with the lung tumor itself causing it. The patient was placed on nicardipine drip and brought down blood pressure this morning down to 120, down to 50, respiratory rate 22, pulse 67, afebrile. PHYSICAL EXAMINATION: GENERAL: [place] female patient, in no apparent distress, although pain is fairly severe at times. We will put her on fentanyl IV for that. Apparently, she tolerates that fairly well, although there is some confusion as to what she can take for pain. In any case, the patient's toxicology is basically unremarkable. VITAL SIGNS: Blood pressure 120/50, respiratory rate , pulse 67, afebrile. LUNGS: Diminished throughout, poor movement of air, especially in the left upper lobe she has decreased movement of air. ABDOMEN: Soft, nontender. EXTREMITIES: No clubbing, cyanosis, or edema. NEUROLOGIC: Intact. IMPRESSION: Hypertensive emergency, gastroenteritis, left upper lobe lung cancer sees Oncology for this, dehydration, anemia secondary to chronic disease, type 2 diabetes, generalized failure to thrive, [id number] protein malnutrition, hyperthyroidism probably secondary. The patient will continued to be monitored carefully, make further evaluation on her as indicated and to keep her as comfortable as possible, hydrate her, make further evaluation and will discuss this patient as far as long-term care needs. KRISTEN KEMP MD DR: Juan C JOB#: [id number] / [id number]
[2017-04-13 03:40] VITALS: BP 161/58
[2017-04-13] MEDS ORDERED: ONDA4TAB12 PO (05:26)
[2017-04-13] MEDS ORDERED: MORP100S3 SL (05:26)
[2017-04-13] MEDS ORDERED: SCOP1PAT TD (05:26)
--- NOTE | 2017-04-13 05:28 | DISCH ---
DISCHARGE INSTRUCTIONS-DC Condition on Discharge Condition on Discharge: Guarded Problems: Activity after Discharge Activity Instructions for Disc: Activity as tolerated Diet after Discharge Diet after Discharge: Regular Follow-Up Follow up with: Hospice HEYDI KWONG MD Apr 13, 2017 05:28
[2017-04-13] MEDS ORDERED: LORazepam INTENSOL 2 MG/ML BOTTLE SL PRN (05:30)
--- NOTE | 2017-04-13 05:31 | PDOC3 ---
Discharge Summary Discharge Summary Date of Admission Date of Admission: Apr 11, 2017 at 06:27 Admitting Diagnosis Dehydration Weakness Lung Cancer Type 2 DM, insulin controlled Date of Discharge: Apr 13, 2017 Discharge Diagnosis Dehydration Weakness Lung Cancer Type 2 DM, insulin controlled Laboratory Findings Laboratory Tests Test 04/11/17 04:00 04/11/17 05:05 04/11/17 07:46 04/11/17 10:10 White Blood Count 8.9 x10^3/uL (4.0-11.0) Red Blood Count 3.85 x10^6/uL (3.50-5.40) Hemoglobin 12.7 g/dL (12.0-15.5) Hematocrit 37.4 % (36.0-47.0) Mean Corpuscular Volume 97 fL (79-100) Mean Corpuscular Hemoglobin 33 pg (25-35) Mean Corpuscular Hemoglobin Concent 34 g/dL (31-37) Red Cell Distribution Width 15.3 % (11.5-14.5) Platelet Count 310 x10^3/uL (140-400) Neutrophils (%) (Auto) 83 % (31-73) Lymphocytes (%) (Auto) 13 % (24-48) Monocytes (%) (Auto) 3 % (0-9) Eosinophils (%) (Auto) 1 % (0-3) Basophils (%) (Auto) 1 % (0-3) Neutrophils # (Auto) 7.4 x10^3uL (1.8-7.7) Lymphocytes # (Auto) 1.1 x10^3/uL (1.0-4.8) Monocytes # (Auto) 0.2 x10^3/uL (0.0-1.1) Eosinophils # (Auto) 0.1 x10^3/uL (0.0-0.7) Basophils # (Auto) 0.1 x10^3/uL (0.0-0.2) Prothrombin Time 11.2 SEC (9.4-11.4) Prothromb Time International Ratio 1.1 (0.9-1.1) Activated Partial Thromboplast Time 24 SEC (23-33) D-Dimer (Zaida) 7.61 mg/L (0.00-0.50) Urine Collection Type U cath Urine Color Yellow Urine Clarity Clear Urine pH 7.0 Urine Specific Bronson 1.020 Urine Protein >100 mg/dl (NEG-TRACE) Urine Glucose (UA) 500 mg/dL (NEG) Urine Ketones (Stick) Neg mg/dL (NEG) Urine Blood Trace (NEG) Urine Nitrite Neg (NEG) Urine Bilirubin Neg (NEG) Urine Urobilinogen Dipstick 0.2 mg/dL (0.2 mg/dL) Urine Leukocyte Esterase Neg (NEG) Urine RBC Occ /HPF (0-2) Urine WBC Rare /HPF (0-4) Urine Squamous Epithelial Cells Occ /LPF Urine Bacteria 0 /HPF (0-FEW) Sodium Level 140 mmol/L (136-145) Potassium Level 3.0 mmol/L (3.5-5.1) Chloride Level 102 mmol/L (98-107) Carbon Dioxide Level 25 mmol/L (21-32) Anion Gap 13 (6-14) Blood Urea Nitrogen 25 mg/dL (7-20) Creatinine 0.9 mg/dL (0.6-1.0) Estimated GFR (Cockcroft-Gault) 59.7 BUN/Creatinine Ratio 28 (6-20) Glucose Level 300 mg/dL (70-99) Calcium Level 8.7 mg/dL (8.5-10.1) Magnesium Level 1.3 mg/dL (1.8-2.4) Total Bilirubin 0.2 mg/dL (0.2-1.0) Aspartate Amino Transf (AST/SGOT) 29 U/L (15-37) Alanine Aminotransferase (ALT/SGPT) 21 U/L (14-59) Alkaline Phosphatase 94 U/L (46-116) Creatine Kinase 25 U/L (26-192) Creatine Kinase MB (Mass) 1.9 ng/mL (0.0-3.6) Creatine Kinase MB Relative Index 7.6 % (0-4) Troponin I Quantitative < 0.017 ng/mL (0-0.055) [id number]-Type Natriuretic Peptide 5075 pg/mL (0-449) Total Protein 7.4 g/dL (6.4-8.2) Albumin 3.1 g/dL (3.4-5.0) Albumin/Globulin Ratio 0.7 (1.0-1.7) Amylase Level 38 U/L (25-115) Lipase 190 U/L (73-393) Thyroid Stimulating Hormone (TSH) 0.174 uIU/mL (0.358-3.740) Urine Opiates Screen Neg (NEG) Urine Methadone Screen Neg (NEG) Urine Barbiturates Neg (NEG) Urine Phencyclidine Screen Neg (NEG) Urine Amphetamine/Methamphetamine Neg (NEG) Urine Benzodiazepines Screen Neg (NEG) Urine Cocaine Screen Neg (NEG) Urine Cannabinoids Screen Neg (NEG) Urine Ethyl Alcohol Neg (NEG) Glucose (Fingerstick) 251 mg/dL (70-99) Nasal Screen MRSA (PCR) Negative (Negative) Test 04/11/17 11:31 04/11/17 16:52 04/11/17 21:15 04/11/17 21:57 Glucose (Fingerstick) 171 mg/dL (70-99) 108 mg/dL (70-99) 427 mg/dL (70-99) 360 mg/dL (70-99) Test 04/11/17 23:34 04/12/17 01:23 04/12/17 03:14 04/12/17 05:45 Glucose (Fingerstick) 171 mg/dL (70-99) 98 mg/dL (70-99) 153 mg/dL (70-99) White Blood Count 6.3 x10^3/uL (4.0-11.0) Red Blood Count 2.61 x10^6/uL (3.50-5.40) Hemoglobin 8.5 g/dL (12.0-15.5) Hematocrit 25.8 % (36.0-47.0) Mean Corpuscular Volume 99 fL (79-100) Mean Corpuscular Hemoglobin 33 pg (25-35) Mean Corpuscular Hemoglobin Concent 33 g/dL (31-37) Red Cell Distribution Width 15.3 % (11.5-14.5) Platelet Count 187 x10^3/uL (140-400) Neutrophils (%) (Auto) 72 % (31-73) Lymphocytes (%) (Auto) 17 % (24-48) Monocytes (%) (Auto) 7 % (0-9) Eosinophils (%) (Auto) 2 % (0-3) Basophils (%) (Auto) 2 % (0-3) Neutrophils # (Auto) 4.5 x10^3uL (1.8-7.7) Lymphocytes # (Auto) 1.1 x10^3/uL (1.0-4.8) Monocytes # (Auto) 0.4 x10^3/uL (0.0-1.1) Eosinophils # (Auto) 0.2 x10^3/uL (0.0-0.7) Basophils # (Auto) 0.1 x10^3/uL (0.0-0.2) Sodium Level 140 mmol/L (136-145) Potassium Level 3.8 mmol/L (3.5-5.1) Chloride Level 109 mmol/L (98-107) Carbon Dioxide Level 20 mmol/L (21-32) Anion Gap 11 (6-14) Blood Urea Nitrogen 22 mg/dL (7-20) Creatinine 1.1 mg/dL (0.6-1.0) Estimated GFR (Cockcroft-Gault) 47.3 Glucose Level 170 mg/dL (70-99) Calcium Level 8.2 mg/dL (8.5-10.1) Magnesium Level 2.0 mg/dL (1.8-2.4) Test 04/12/17 07:21 04/12/17 11:32 04/12/17 17:33 04/12/17 20:20 Glucose (Fingerstick) 152 mg/dL (70-99) 207 mg/dL (70-99) 134 mg/dL (70-99) 136 mg/dL (70-99) Hospital Course Pt admitted to hospital through ER. Found on CT to have large lung neoplasm. Pt and family have agreed to Hospice care at discharge, [facility] Hospice consulted , pt to be sent home on Hospice today. Non-palliative medications discontinued. Condition at Discharge: Guarded Home Meds Active Scripts Morphine Sulfate (MORPHINE SULFATE) 100 Mg/5 Ml Solution, 20 MG SL PRN Q3HRS Y for PAIN for 30 Days, #100 ML 0 Refills Prov:HEYDI KWONG MD 04/13/17 Reported Medications Insulin Aspart (NOVOLOG FLEXPEN) 100 Unit/1 Ml Insuln.pen, 8 UNIT SQ PRN Y for SEE COMMENTS, SYR 04/11/17 Insulin Glargine,Hum.rec.anlog (LANTUS SOLOSTAR) 100 Unit/1 Ml Insuln.pen, 12 UNIT SQ QHS, #15 ML 3 Refills 04/11/17 Docusate Sodium (COLACE) 100 Mg Capsule, 200 MG PO BID for PREVENT CONSTIPATION LAST DOSE GIVEN: DATE: TODAY TIME: AM NEXT DOSE DUE: DATE: TODAY TIME: PM 10/12/15 Hydrocodone Bitartrate (Hysingla ER) 40 Mg Tab.er.24h, 50 MG PO DAILYWLUN for CHRONIC PAIN LAST DOSE GIVEN: DATE: TODAY TIME: WITH LUNCH NEXT DOSE DUE: DATE: TOMORROW TIME: WITH LUNCH 10/12/15 Simvastatin (SIMVASTATIN) 20 Mg Tablet, 20 MG PO QHS for HIGH CHOLESTEROL LAST DOSE GIVEN: DATE: YESTERDAY TIME: AT BEDTIME NEXT DOSE DUE: DATE: TODAY TIME: AT BEDTIME 09/11/14 Multivitamin (MULTIVITAMINS) 1 Each Tablet, 1 TAB PO DAILY for SUPPLEMENT LAST DOSE GIVEN: DATE: TODAY TIME: AM NEXT DOSE DUE: DATE: TOMORROW TIME: AM 09/11/14 Famotidine (FAMOTIDINE) 20 Mg Tablet, 20 TAB PO HS for PREVENT HEARTBURN LAST DOSE GIVEN: DATE: YESTERDAY TIME: AT BEDTIME NEXT DOSE DUE: DATE: TODAY TIME: AT BEDTIME 09/11/14 Duloxetine Hcl (CYMBALTA) 30 Mg Capsule.dr, 30 MG PO HS for DEPRESSION/PAIN LAST DOSE GIVEN: DATE: YESTERDAY TIME: AT BEDTIME NEXT DOSE DUE: DATE: TODAY TIME: AT BEDTIME 09/11/14 Carvedilol (CARVEDILOL) 12.5 Mg Tablet, 2 TAB PO BID for HIGH BLOOD PRESSURE LAST DOSE GIVEN: DATE: TODAY TIME: WITH BREAKFAST NEXT DOSE DUE: DATE: TODAY TIME: WITH DINNER 09/11/14 Calcium Carbonate/Vitamin D3 (CALCIUM + VITAMIN D TABLET) 1 Each Tablet, 2 TAB PO BID for SUPPLEMENT LAST DOSE GIVEN: DATE: TODAY TIME: AM NEXT DOSE DUE: DATE: TODAY TIME: PM 09/11/14 Aspirin (ASPIRIN) 81 Mg Tab.chew, 81 MG PO DAILY for PREVENT BLOOD CLOTS LAST DOSE GIVEN: DATE: TODAY TIME: AM NEXT DOSE DUE: DATE: TOMORROW TIME: AM 09/11/14 Inpatient Meds Current Medications Sodium Chloride 1,000 ml @ 1,000 mls/hr Q1H IV Last administered on t 04:15; Start 04/11/17 at 04:15; Stop 04/11/17 at 05:14; Status DC Ondansetron HCl (Zofran) 8 mg 1X ONCE IV Last administered on 04/11/17 04:07 ; Start 04/11/17 at 04:15; Stop 04/11/17 at 04:16; Status DC Labetalol HCl (Normodyne) 20 mg 1X ONCE IVP Last administered on 04/11/17 04 :09; Start 04/11/17 at 04:15; Stop 04/11/17 at 04:16; Status DC Morphine Sulfate (Morphine 2mg Syringe) 2 mg 1X ONCE IV Last administered on 04/11/17 04:50; Start 04/11/17 at 04:45; Stop 04/11/17 at 04:58; Status DC Clonidine HCl (Catapres) 0.1 mg 1X ONCE PO Last administered on 04/11/17 05: 15; Start 04/11/17 at 05:15; Stop 04/11/17 at 05:18; Status DC Nicardipine HCl 50 mg/Sodium Chloride 270 ml @ 0 mls/hr CONT PRN IV SEE I/O RECORD Last administered on 04/11/17 05:37; Start 04/11/17 at 05:30; Stop at 18:30; Status DC Ondansetron HCl (Zofran) 8 mg 1X ONCE IV Last administered on 04/11/17 05:30 ; Start 04/11/17 at 05:30; Stop 04/11/17 at 05:31; Status DC Sodium Chloride 250 ml @ As Directed STK-MED ONCE .ROUTE ; Start 04/11/17 at 05:24; Stop 04/11/17 at 05:25; Status DC Nicardipine HCl (Cardene) 25 mg STK-MED ONCE IV ; Start 04/11/17 at 05:24; Stop 04/11/17 at 05:25; Status DC Potassium Chloride 100 ml @ 50 mls/hr Q1H IV ; Start 04/11/17 at 06:00; Stop 04/11/17 at 07:59; Status UNV Magnesium Sulfate 50 ml @ 25 mls/hr 1X ONCE IV Last administered on 10:03; Start 04/11/17 at 06:30; Stop 04/11/17 at 08:30; Status DC Insulin Human Regular 150 unit/ Sodium Chloride 151.5 ml @ 0 mls/hr 1X ONCE IV ; Start 04/11/17 at 06:30; Stop 04/11/17 at 06:31; Status DC Potassium Chloride 100 ml @ 100 mls/hr Q1H IV Last administered on 04/11/17 16:06; Start 04/11/17 at 06:30; Stop 04/11/17 at 10:29; Status DC Enoxaparin Sodium (Lovenox 60mg Syringe) 50 mg 1X ONCE SQ Last administered on 04/11/17 10:03; Start 04/11/17 at 07:00; Stop 04/11/17 at 07:01; Status DC Iohexol (Omnipaque 300 Mg/ml) 75 ml 1X ONCE IV Last administered on 06:31; Start 04/11/17 at 06:30; Stop 04/11/17 at 06:31; Status DC Info (Do NOT chart on this entry -- for MONITORING) 1 each PRN DAILY PRN MC SEE COMMENTS; Start 04/11/17 at 06:15; Stop 04/13/17 at 06:14 Insulin Aspart (NovoLOG) 0-9 UNITS QIDACHS SQ Last administered on 04/12/17 21:13; Start 04/11/17 at 07:30 Dextrose 12.5 gm PRN Q15MIN PRN IV SEE COMMENTS; Start 04/11/17 at 07:30 Carvedilol (Coreg) 12.5 mg BIDWMEALS PO ; Start 04/11/17 at 09:30; Stop at 09:37; Status DC Carvedilol (Coreg) 25 mg DAILYWBKFT PO Last administered on 04/11/17 10:02; Start 04/11/17 at 09:00; Stop 04/11/17 at 14:37; Status DC Carvedilol (Coreg) 12.5 mg DAILYWSUP PO ; Start 04/11/17 at 17:00; Stop at 17:00; Status DC Ondansetron HCl (Zofran) 4 mg PRN Q6HRS PRN IV NAUSEA/VOMITING Last administered on 04/12/17 13:00; Start 04/11/17 at 10:30; Stop 04/12/17 at 18 :30; Status DC Carvedilol (Coreg) 12.5 mg BIDWMEALS PO ; Start 04/11/17 at 17:00 Potassium Chloride 100 ml @ As Directed STK-MED ONCE IV ; Start 04/11/17 at 15 :04; Stop 04/11/17 at 15:05; Status DC Pantoprazole Sodium (PROTONIX VIAL for IV PUSH) 40 mg DAILYAC IVP Last administered on 04/12/17 07:27; Start 04/11/17 at 16:00; Stop 04/12/17 at 18 :15; Status DC Dextrose/Sodium Chloride 1,000 ml @ 125 mls/hr Q8H IV Last administered on 07:28; Start 04/11/17 at 17:00; Stop 04/12/17 at 18:15; Status DC Dopamine HCl/ Dextrose 250 ml @ 7.075 mls/ hr CONT PRN IV SEE I/O RECORD; Start 04/11/17 at 19:00; Stop 04/12/17 at 18:15; Status DC Fentanyl Citrate (Fentanyl 2ml Vial) 25 mcg PRN Q2HR PRN IV PAIN; Start at 10:15; Stop 04/12/17 at 18:15; Status DC Megestrol Acetate (Megace) 400 mg BID PO ; Start 04/12/17 at 10:00 Pantoprazole Sodium (Protonix) 40 mg DAILY08 PO ; Start 04/13/17 at 08:00 Morphine Sulfate (Roxanol Conc) 20 mg PRN Q3HRS PRN SL PAIN; Start 04/12/17 at 18:15 Ondansetron HCl (Zofran Odt) 4 mg PRN Q4HRS PRN PO NAUSEA/VOMITING; Start at 18:15 Scopolamine (Transderm-Scop) 1 patch Q3DAYS TD Last administered on 04/12/17t 20:48; Start 04/12/17 at 20:00 Lorazepam (Ativan Intensol) 0.5 mg PRN Q6HRS PRN SL ANXIETY / AGITATION; Start 04/13/17 at 05:30; Status UNV Active Scripts Active Morphine Sulfate 100 Mg/5 Ml Solution 20 Mg SL PRN Q3HRS PRN 30 Days Reported Novolog Flexpen (Insulin Aspart) 100 Unit/1 Ml Insuln.pen 8 Unit SQ PRN PRN Lantus Solostar (Insulin Glargine,Hum.rec.anlog) 100 Unit/1 Ml Insuln.pen 12 Unit SQ QHS Colace (Docusate Sodium) 100 Mg Capsule 200 Mg PO BID LAST DOSE GIVEN: DATE: TODAY TIME: AM NEXT DOSE DUE: DATE: TODAY TIME: PM Hysingla ER (Hydrocodone Bitartrate) 40 Mg Tab.er.24h 50 Mg PO DAILYWLUN LAST DOSE GIVEN: DATE: TODAY TIME: WITH LUNCH NEXT DOSE DUE: DATE: TOMORROW TIME: WITH LUNCH Simvastatin 20 Mg Tablet 20 Mg PO QHS LAST DOSE GIVEN: DATE: YESTER TIME: AT BEDTIME NEXT DOSE DUE: DATE: TODAY TIME: AT BEDTIME Multivitamins (Multivitamin) 1 Each Tablet 1 Tab PO DAILY LAST DOSE GIVEN: DATE: TODAY TIME: AM NEXT DOSE DUE: DATE: TOMORR TIME: AM Famotidine 20 Mg Tablet 20 Tab PO HS LAST DOSE GIVEN: DATE: YES TIME: AT BEDTIME NEXT DOSE DUE: DATE: TODAY TIME: AT BEDTIME Cymbalta (Duloxetine Hcl) 30 Mg Capsule.dr 30 Mg PO HS LAST DOSE GIVEN: DATE: YESTER TIME: AT BEDTIME NEXT DOSE DUE: DATE: TODAY TIME: AT BEDTIME Carvedilol 12.5 Mg Tablet 2 Tab PO BID LAST DOSE GIVEN: DATE: TODAY TIME: WITH BREAKFAST NEXT DOSE DUE: DATE: TODAY TIME: WITH DINNER Calcium + Vitamin D Tablet (Calcium Carbonate/Vitamin D3) 1 Each Tablet 2 Tab PO BID LAST DOSE GIVEN: DATE: TODAY TIME: AM NEXT DOSE DUE: DATE: TODAY TIME: PM Aspirin 81 Mg Tab.chew 81 Mg PO DAILY LAST DOSE GIVEN: DATE: TODAY TIME: AM NEXT DOSE DUE: DATE: TOMORR TIME: AM Activity: as tolerated Diet: Regular Follow-up Plan PRN w/ Hospice/PCP HEYDI KWONG MD Apr 13, 2017 05:31
[2017-04-13 05:38] VITALS: BP 161/59
[2017-04-13 06:00] LABS: BASO # 0.1 x10^3/uL (0.0-0.2); BASO % 2 % (0-3); EOS # 0.2 x10^3/uL (0.0-0.7); EOS % 2 % (0-3); HEMATOCRIT 24.3 % (36.0-47.0); HEMOGLOBIN 8.2 g/dL (12.0-15.5); LYMPH # 1.2 x10^3/uL (1.0-4.8); LYMPH % 16 % (24-48); MEAN CORPUSCULAR HEMOGLOBIN 33 pg (25-35); MEAN CORPUSCULAR HGB CONC 34 g/dL (31-37); MEAN CORPUSCULAR VOLUME 98 fL (79-100); MONO # 0.6 x10^3/uL (0.0-1.1); MONO % 8 % (0-9); NEUT # 5.3 x10^3uL (1.8-7.7); NEUT % 71 % (31-73); PLATELET COUNT 182 x10^3/uL (140-400); RED BLOOD COUNT 2.49 x10^6/uL (3.50-5.40); WHITE BLOOD COUNT 7.5 x10^3/uL (4.0-11.0)
[2017-04-13 06:14] LABS: ALBUMIN 2.4 g/dL (3.4-5.0); ALBUMIN/GLOBULIN RATIO 0.7 (1.0-1.7); CALCIUM 8.5 mg/dL (8.5-10.1); CREATININE 1.1 mg/dL (0.6-1.0); GFR 47.3; MAGNESIUM 1.4 mg/dL (1.8-2.4); POTASSIUM 3.5 mmol/L (3.5-5.1); TOTAL BILIRUBIN 0.2 mg/dL (0.2-1.0); TOTAL PROTEIN 5.8 g/dL (6.4-8.2)
[2017-04-13] MEDS: INSULIN ASPART 300 UNITS/3 ML INSULN.PEN SQ SCH (07:30)
[2017-04-13 07:43] VITALS: BP 160/64
[2017-04-13] MEDS ORDERED: PANTOPRAZOLE 40 MG TABLET. PO SCH (08:00)
[2017-04-13] MEDS: MEGESTROL 400 MG/10 ML ORAL.SUSP. PO SCH (09:27)
[2017-04-13 09:28] VITALS: BP 160/64
[2017-04-13] MEDS: CARVEDILOL 12.5 MG TABLET PO SCH (09:28)
== END 2017-04-13 10:09 | disposition hospice, home (50) | DRG 391 ==
LOC: ER 03:44 → ICU 06:27
PROVIDERS: ADMIT Family Medicine; ATTEND Family Medicine
DX: K52.9 Noninfective gastroenteritis and colitis, unspecified (principal); E43 Unspecified severe protein-calorie malnutrition; E11.22 Type 2 diabetes mellitus with diabetic chronic kidney disease; E11.51 Type 2 diabetes mellitus with diabetic peripheral angiopathy without gangrene; E86.0 Dehydration; E11.65 Type 2 diabetes mellitus with hyperglycemia; E83.42 Hypomagnesemia; I27.20 Pulmonary hypertension, unspecified; I16.1 Hypertensive emergency; C34.12 Malignant neoplasm of upper lobe, left bronchus or lung; I13.0 Hypertensive heart and chronic kidney disease with heart failure and stage 1 through stage 4 chronic kidney disease, or unspecified chronic kidney disease; D63.8 Anemia in other chronic diseases classified elsewhere; E03.9 Hypothyroidism, unspecified; Z68.20 Body mass index [BMI] 20.0-20.9, adult; E78.5 Hyperlipidemia, unspecified; I25.10 Atherosclerotic heart disease of native coronary artery without angina pectoris; I50.9 Heart failure, unspecified; J44.9 Chronic obstructive pulmonary disease, unspecified; F32.9 Major depressive disorder, single episode, unspecified; M81.0 Age-related osteoporosis without current pathological fracture; F41.9 Anxiety disorder, unspecified; N18.9 Chronic kidney disease, unspecified; R62.7 Adult failure to thrive; G89.29 Other chronic pain; M54.5 Low back pain; E87.6 Hypokalemia; Z79.4 Long term (current) use of insulin; Z82.49 Family history of ischemic heart disease and other diseases of the circulatory system; Z85.118 Personal history of other malignant neoplasm of bronchus and lung; Z86.73 Personal history of transient ischemic attack (TIA), and cerebral infarction without residual deficits; Z87.891 Personal history of nicotine dependence; Z90.12 Acquired absence of left breast and nipple; Z95.1 Presence of aortocoronary bypass graft; Z95.5 Presence of coronary angioplasty implant and graft; Z87.440 Personal history of urinary (tract) infections; Z90.49 Acquired absence of other specified parts of digestive tract; Z90.710 Acquired absence of both cervix and uterus; I25.2 Old myocardial infarction
CPT/HCPCS: 36415; 70450; 71275; 72125; 74022; 80048; 80053; 80307; 81001; 82150; 82553; 82947; 83690; 83735; 83880; 84443; 84484; 85025; 85379; 85610; 85730; 87040; 87641; 93005; 93308; C9113; J1650; J1815; J2270; J2405; J3475; J3480; J3490; J7050; Q9967; G0479; J7030

== ENCOUNTER 2017-05-06 19:47 | Emergency (ER) | payer MEDICARE, OTHER ==
[~2017-05-06] VITALS: Ht 144.8 cm; Wt 42.0 kg
[~2017-05-06 19:47] MED LIST changes: +INSU100I17 SQ; +MORP100S3 SL; +ONDA4TAB12 PO; +SCOP1PAT TD
[2017-05-06 19:55] VITALS: BP 207/101
[2017-05-06] MEDS ORDERED: HYDROmorphone PF 1 MG/ML DISP.SYRIN IM ONE (21:15)
[2017-05-06] MEDS ORDERED: MORPHINE SULFATE 4 MG/ML DISP.SYRIN. IV ONE (21:15)
[2017-05-06] MEDS ORDERED: ONDANSETRON ODT 4 MG TAB.RAPDIS PO ONE (21:45)
--- NOTE | 2017-05-06 21:56 | PHYS DOC ---
General Chief Complaint: ABDOMINAL PAIN Stated Complaint: ABDOMINAL PAIN Time Seen by MD: 19:55 Source: patient, family Exam Limitations: language barrier Problems: History of Present Illness Initial Comments Patient is an 86-year-old female who speaks Tongan as a second language brought to the ED by her for abdominal pain. The patient states she thinks she has food poisoning from sushi eaten at a restaurant earlier in the day. Others partook of the meal with her and have no complaints. The patient has had no nausea vomiting or diarrhea, she complains of severe pain however cannot localize it simply pointing in general to her abdomen. She is hypertensive 207/101 in the emergency department and appears to be somewhat uncomfortable. She's got no fever chills or body aches and her symptom complex and initially does not fit in with an organically caused gastrointestinal process. She takes opiates regularly and has liquid morphine at home however her significant other has not given her any for 2 days. Opiate withdrawal is on the differential and after thoroughly discussing these issues with the patient and her spouse are agreeable to a trial of pain medications and reevaluation before initiating a full workup. Timing/Duration: other Severity: severe Modifying Factors: improves with other Associated Symptoms: other Allergies: Coded Allergies: No Known Drug Allergies (Unverified , 05/16/14) Past Medical History Medical History: arthritis, diabetes, heart disease, hypertension, other (CHF, CVA, TIA, UTI, chronic pain) Surgical History: coronary bypass surgery Social History Smoker: non-smoker Alcohol: none Drugs: none Review of Systems Constitutional: denies chills, denies diaphoresis, denies fever, denies malaise Respiratory: denies cough, denies shortness of breath, denies wheezing Cardiovascular: denies chest pain, denies palpitations, denies syncope Gastrointestinal: see HPI, abdominal pain, denies constipation, denies diarrhea , denies nausea, denies vomiting Genitourinary: denies dysuria, denies frequency, denies hematuria Musculoskeletal: denies back pain, denies joint swelling, denies neck pain Psychiatric/Neurological: denies headache, denies numbness, denies paresthesia Physical Exam General Appearance: WD/WN, moderate distress Eyes: bilateral eye normal inspection, bilateral eye PERRL, bilateral eye EOMI Ear, Nose, Throat: hearing grossly normal, normal ENT inspection, normal pharynx Neck: non-tender, supple Respiratory: normal breath sounds, no respiratory distress Cardiovascular: normal peripheral pulses, regular rate, rhythm Gastrointestinal: normal bowel sounds, non tender, soft, no organomegaly, no pulsatile mass Rectal: deferred Back: no CVA tenderness, no vertebral tenderness Extremities: non-tender, normal inspection Neurologic/Psychiatric: reo 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 2155: Patient rechecked, she is pain-free and is requesting discharge. Her blood pressure has normalized with pain control. She was observed for a period after receiving pain medications and no new or progressive symptoms have resulted. As it is [place] and no apparent emergent condition noted patient will be discharged home per her request and she knows she can return at any time for any reason. Her spouse is agreeable. Departure Time of Disposition: 21:55 Disposition: HOME, SELF-CARE Diagnosis: abdominal pain, uncontrolled hypertension Condition: IMPROVED Patient Instructions: Abdominal Pain (Nonspecific) Additional Instructions: As discussed it appears her elevated blood pressure was due to your uncontrolled pain as it has improved with pain control. Avoid raw fish to prevent future symptoms. Continue current medications. Follow-up with your doctor on Sunday for recheck. Return to ED with new or changing symptoms. SUSAN BERMAN DO May 06, 2017 21:56
== END 2017-05-06 22:20 | disposition home or self-care (01) ==
LOC: ER 19:47
DX: R10.84 Generalized abdominal pain (principal); I11.0 Hypertensive heart disease with heart failure; I50.9 Heart failure, unspecified; E11.9 Type 2 diabetes mellitus without complications; G89.29 Other chronic pain; Z86.73 Personal history of transient ischemic attack (TIA), and cerebral infarction without residual deficits; Z95.1 Presence of aortocoronary bypass graft
CPT/HCPCS: 96372; 99284; J1170; Q0162

== ENCOUNTER 2017-05-13 18:10 | Emergency (ER) | payer MEDICARE, OTHER ==
[~2017-05-13] VITALS: Ht 144.8 cm; Wt 42.0 kg
[2017-05-13] MEDS ORDERED: IV NORMAL SALINE 1,000ML 1,000 ML IV SCH (18:28)
[2017-05-13] MEDS ORDERED: 0.9 % SODIUM CHLORIDE 10 ML DISP.SYRIN. IV PRN (18:30)
--- NOTE | 2017-05-13 18:35 | PHYS DOC ---
Past History Past Medical History: CAD, Cancer, CHF, CVA, Heart Disease, Hypertension, [place], TIA, UTI Additional Past Medical Histor: end-stage lung cancer Past Surgical History: Coronary Bypass Surgery Smoking: Cigarettes, Quit Greater Than 1 Year Alcohol Use: None Drug Use: None Adult General Chief Complaint Chief Complaint: diarrhea nausea and vomiting [facility] HPI Patient is a pleasant 86-year-old female coming from a snf with a 2 day history of increasing nausea vomiting diarrhea and generalized crampy abdominal pain. Patient has been in normal state of health until 2 days ago when she developed crampy abdominal pain diffusely throughout her abdomen no abdominal distention which she is developed subjective fevers, chills and increasing crampy abdominal pain with nausea and vomiting. The vomiting is nonbilious nonbloody she's had a few episodes here and there and loose diarrheal stool without blood without mucus and no exposure to recent antibiotics. Patient has decreased appetite and felt relatively weak pain is waxing and waning with no radiation to the back or upper chest. sHe has no UTI symptoms. No changes in medication. Review of Systems Review of Systems Constitutional: This patient has had subjective fevers and chills. Nothing documented Eyes: Denies change in visual acuity, redness, or eye pain [] HENT: Denies nasal congestion or sore throat [] Respiratory: Denies cough or shortness of breath [] Cardiovascular: No additional information not addressed in HPI [] GI: Her main complaint is abdominal pain with nausea and vomiting nonbilious nonbloody diarrheal stools nonbloody and nonmucoid] : Denies dysuria or hematuria [] Musculoskeletal: Denies back pain or joint pain [] Integument: Denies rash or skin lesions [] Neurologic: Denies headache, focal weakness or sensory changes she feels generally weak Endocrine: Denies polyuria or polydipsia [] All other systems were reviewed and found to be within normal limits, except as documented in this note. Allergies Allergies Allergies Coded Allergies Type Severity Reaction Last Updated Verified No Known Drug Allergies 05/16/14 No Physical Exam Physical Exam Other vital signs recorded on the chart within normal limits. Constitutional: Well developed, well nourished, no acute distress, non-toxic appearance. Patient is resting quietly with no apparent nausea vomiting this time no diaphoresis she is mildly pale appearance HENT: Normocephalic, atraumatic, bilateral external ears normal, oropharynx dry no oral exudates, nose normal. [] Eyes: PERRLA, EOMI, conjunctiva normal, no discharge. [] Neck: Normal range of motion, no tenderness, supple, no stridor. [] Cardiovascular: Tachycardia irregular irregular heart rhythm Lungs & Thorax: Bilateral breath sounds clear to auscultation [] Abdomen: Hyperactive bowel sounds with masses no guarding rebound or organomegaly abdomen soft Skin: Warm, dry, no erythema, no rash. [] Extremities: No tenderness, no cyanosis, no clubbing, ROM intact, no edema. [] Neurologic: Alert and oriented X 3, normal motor function, normal sensory function, no focal deficits noted. [] Psychologic: Affect normal, judgement normal, mood normal. [] Current Patient Data Lab Results Laboratory Tests Test 05/13/17 19:06 05/13/17 20:00 White Blood Count 9.9 x10^3/uL (4.0-11.0) Red Blood Count 3.92 x10^6/uL (3.50-5.40) Hemoglobin 12.3 g/dL (12.0-15.5) Hematocrit 36.7 % (36.0-47.0) Mean Corpuscular Volume 94 fL (79-100) Mean Corpuscular Hemoglobin 32 pg (25-35) Mean Corpuscular Hemoglobin Concent 34 g/dL (31-37) Red Cell Distribution Width 14.3 % (11.5-14.5) Platelet Count 280 x10^3/uL (140-400) Neutrophils (%) (Auto) 70 % (31-73) Lymphocytes (%) (Auto) 19 % (24-48) L Monocytes (%) (Auto) 9 % (0-9) Eosinophils (%) (Auto) 1 % (0-3) Basophils (%) (Auto) 1 % (0-3) Neutrophils # (Auto) 6.9 x10^3uL (1.8-7.7) Lymphocytes # (Auto) 1.9 x10^3/uL (1.0-4.8) Monocytes # (Auto) 0.9 x10^3/uL (0.0-1.1) Eosinophils # (Auto) 0.1 x10^3/uL (0.0-0.7) Basophils # (Auto) 0.1 x10^3/uL (0.0-0.2) Urine Collection Type Unknown Urine Color Yellow Urine Clarity Hazy Urine pH 6.0 Urine Specific [place] 1.025 Urine Protein >100 mg/dl (NEG-TRACE) Urine Glucose (UA) 100 mg/dL (NEG) Urine Ketones (Stick) 40 mg/dL (NEG) Urine Blood Mod (NEG) Urine Nitrite Neg (NEG) Urine Bilirubin Neg (NEG) Urine Urobilinogen Dipstick 0.2 mg/dL (0.2 mg/dL) Urine Leukocyte Esterase Neg (NEG) Urine RBC 6-10 /HPF (0-2) Urine WBC 5-10 /HPF (0-4) Urine Squamous Epithelial Cells Many /LPF Urine Bacteria 0 /HPF (0-FEW) Urine Hyaline Casts Many /HPF Urine Mucus Marked /LPF Sodium Level 134 mmol/L (136-145) L Potassium Level 2.9 mmol/L (3.5-5.1) *L Chloride Level 94 mmol/L (98-107) L Carbon Dioxide Level 30 mmol/L (21-32) Anion Gap 10 (6-14) Blood Urea Nitrogen 25 mg/dL (7-20) H Creatinine 1.1 mg/dL (0.6-1.0) H Estimated GFR (Cockcroft-Gault) 47.3 Glucose Level 192 mg/dL (70-99) H Calcium Level 9.1 mg/dL (8.5-10.1) Total Bilirubin 0.6 mg/dL (0.2-1.0) Direct Bilirubin 0.2 mg/dL (0.0-0.2) Aspartate Amino Transferase (AST) 17 U/L (15-37) Alanine Aminotransferase (ALT) 13 U/L (14-59) L Alkaline Phosphatase 92 U/L (46-116) Creatine Kinase 21 U/L (26-192) L Creatine Kinase MB (Mass) 1.4 ng/mL (0.0-3.6) Creatine Kinase MB Relative Index 6.7 % (0-4) H Troponin I Quantitative 0.047 ng/mL (0-0.055) Total Protein 7.2 g/dL (6.4-8.2) Albumin 2.9 g/dL (3.4-5.0) L Lipase 86 U/L (73-393) EKG EKG Patient's EKG read by me 636 7 PM 05/13/2017 demonstrates heart rate of 137 there is a P-wave the QRS is a sinus tachycardia with frequent atrial escape complexes biventricular hypertrophy and nonspecific ST segment changes in the inferior and lateral leads.[] Radiology/Procedures Radiology/Procedures [address] [address] IMAGING REPORT Signed PATIENT: CAROLINE CARTER ACCOUNT: [id number] : 1930 LOCATION: ER AGE: 86 SEX: F EXAM STATUS: REG ER ORD. PHYSICIAN: BROCK FORDE MD REASON: ab pain and n/d/v PROCEDURE: CT ABD PELV W/ IV CONTRST ONLY Exam performed: CT scan of the abdomen and pelvis with contrast Clinical Indication: Abdominal pain, diarrhea and vomiting with nausea. Patient is a poor historian Date of Service: 05/13/2017 comparison: CT abdomen and pelvis from February 07, 2017 Technique: Contiguous helical acquisitions are obtained from the lung bases to the pelvis during intravenous administration of [50 cc of Omnipaque 300]. In addition oral contrast was also given. Sagittal and coronal reformatted images were obtained and reviewed. CT abdomen findings: The lung bases appear essentially clear. Visualized heart is normal The liver, spleen and pancreas appears unremarkable. Previous cholecystectomy. Mild dilation of the common bile duct may be related to reservoir effect from prior cholecystectomy. Both adrenal glands and bilateral kidneys appear normal with symmetric excretion of contrast via both kidneys. The small bowel loops appear nondilated and unremarkable. Aorta is normal in caliber, however diffuse atheromatous calcification is noted. IVC filter There is no retroperitoneal lymphadenopathy or mass lesions. No bowel related inflammatory stranding is noted. Visualized appendix is normal No obvious stranding is seen in the pericecal region. CT pelvis findings: The pelvic bowel loops are nondilated and unremarkable. The urinary bladder is decompressed, however normal. Uterus is anteverted, no adnexal masses seen Interrogation of bone windows demonstrates generalized osteopenia and spondylotic changes and multilevel chronic compression fractures involving the thoracolumbar spine status post vertebroplasty. Sagittal and coronal reformatted images were obtained and reviewed which demonstrate no additional findings. Postoperative changes seen in the right hip. Impression abdomen and pelvis : 1. No acute intra-abdominal or pelvic process is detected. 2. Status post cholecystectomy. PQRS Compliance Statement: One or more of the following individualized dose reduction techniques were utilized for this examination: 1. Automated exposure control 2. Adjustment of the mA and/or kV according to patient size 3. Use of iterative reconstruction technique Electronically signed by: Mary Shahid MD (05/13/2017 9:37 PM) [facility] DICTATED AND SIGNED BY: MARY SHAHID MD DATE: 05/13/172129 CC: BROCK FORDE MD; MINI CHAPMAN APRN ~ [] Course & Med Decision Making Course & Med Decision Making Pertinent Labs and Imaging studies reviewed. (See chart for details) ration presents with nausea vomiting diarrhea and chronic abdominal pain per family. Patient has a soft abdomen on my exam hyperactive bowel sounds because of her prior surgeries include cholecystectomy who wanted to ensure the patient was signed from a small bowel obstruction. Patient was given fluids antiemetics and pain medications while here. It is noted upon arrival patient was mildly tachycardic likely secondary to pain as well as volume depletion. 7:30 p.m. patient is resting quietly no evidence of nausea and vomiting at this time. Family bedside was only concerned about abdominal pain being related to a small bowel obstruction. 8:30 PM patient is noted to be hypertensive which is chronic per patient but asymptomatic from this high blood pressure. She also is noted to be hypokalemic and she received an oral dose of 20 mg of potassium orally without issue. Time is now 9:[address] scan abdomen pelvis is return to demonstrate no intra-abdominal pathology, signs of infection, or small bowel obstruction. Patient I and family discussed disposition back to the snf for hospice care patient be given another dose of pain medications while she did use or pedal patch for chronic pain. Patient is well-hydrated although her BUN/ creatinine are mildly elevated her tachycardia is improved significantly with volume repletion of fluid bolus over the last hour. sHe again has had no episodes of nausea or diarrhea or vomiting here in the emergency department. She is safe to be discharged back to the snf facility under hospice care Patient's laboratory work is unremarkable with exception of potassium of 2.9, patient's BUN/creatinine are elevated as explain earlier patient's white count is normal with no evidence of left shift patient's platelet count is normal, patient's lipase is normal and troponin is negative. discharge: I've spoken with the patient and/or caregivers. I've explained the patient's condition, diagnosis and treatment plan based on information available to me at this time. I've answered the patient's and/or caregivers questions and addressed any concerns. The patient and/or caregivers have a good understanding the patient's diagnosis, condition and treatment plan as can be expected at this point. Vital signs have been stabilized. The patient's condition is stable for discharge from the emergency department. The patient will pursue further outpatient evaluation with her primary care provider or other designated consulting physician as outlined in the discharge instructions. Patient and/or caregivers are agreeable to this plan of care and follow-up instructions have been explained in detail. The patient and/or caregivers have received these instructions in written format and expressed understanding of these discharge instructions. The patient and her caregivers are aware that if any significant change in condition or worsening of symptoms should prompt him to immediately return to this of the closest emergency department. If an emergent department is not readily available I would encourage him to call 911. [] Dragon Disclaimer Dragon Disclaimer This electronic medical record was generated, in whole or in part, using a voice recognition dictation system. Departure Departure: Impression: Primary Impression: Dehydration Additional Impressions: Nausea and vomiting Chronic abdominal pain Hypokalemia Disposition: 01 HOME, SELF-CARE Condition: STABLE Referrals: MINI CHAPMAN APRN (PCP) Patient Instructions: Abdominal Pain (Nonspecific), Diarrhea, Hypokalemia, Nausea and Vomiting Additional Instructions: discharge: I've spoken with the patient and/or caregivers. I've explained the patient's condition, diagnosis and treatment plan based on information available to me at this time. I've answered the patient's and/or caregivers questions and addressed any concerns. The patient and/or caregivers have a good understanding the patient's diagnosis, condition and treatment plan as can be expected at this point. Vital signs have been stabilized. The patient's condition is stable for discharge from the emergency department. The patient will pursue further outpatient evaluation with her primary care provider or other designated consulting physician as outlined in the discharge instructions. Patient and/or caregivers are agreeable to this plan of care and follow-up instructions have been explained in detail. The patient and/or caregivers have received these instructions in written format and expressed understanding of these discharge instructions. The patient and her caregivers are aware that if any significant change in condition or worsening of symptoms should prompt him to immediately return to this of the closest emergency department. If an emergent department is not readily available I would encourage him to call 911. Scripts Potassium Chloride (POTASSIUM CHLORIDE) 10 Meq Capsule.er 1 CAP PO DAILY, #20 CAP 0 Refills Prov: BROCK FORDE MD 05/13/17 Ondansetron (ZOFRAN ODT) 8 Mg Tab.rapdis 8 MG PO TID for 5 Days Prov: BROCK FORDE MD 05/13/17 Diphenoxylate Hcl/Atropine (LOMOTIL TABLET) 1 Each Tablet 1 TAB PO QID, #20 TAB Prov: BROCK FORDE MD 05/13/17 Problem Qualifiers BROCK FORDE MD May 13, 2017 18:35
--- NOTE | 2017-05-13 18:39 | EKG ---
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
[2017-05-13] MEDS ORDERED: CONTRAST GIVEN MC PRN (18:45)
[2017-05-13] MEDS ORDERED: IOHEXOL 300 MG/ML 75 ML VIAL. IV ONE (19:00)
[2017-05-13] MEDS ORDERED: ONDANSETRON PF 4 MG/2 ML VIAL. IV ONE (19:00)
[2017-05-13] MEDS: HYDROmorphone PF 1 MG/ML DISP.SYRIN IV/SQ PRN ×2 (19:21→21:40)
[2017-05-13 19:31] LABS: BASO # 0.1 x10^3/uL (0.0-0.2); BASO % 1 % (0-3); EOS # 0.1 x10^3/uL (0.0-0.7); EOS % 1 % (0-3); HEMATOCRIT 36.7 % (36.0-47.0); HEMOGLOBIN 12.3 g/dL (12.0-15.5); LYMPH # 1.9 x10^3/uL (1.0-4.8); LYMPH % 19 % (24-48); MEAN CORPUSCULAR HEMOGLOBIN 32 pg (25-35); MEAN CORPUSCULAR HGB CONC 34 g/dL (31-37); MEAN CORPUSCULAR VOLUME 94 fL (79-100); MONO # 0.9 x10^3/uL (0.0-1.1); MONO % 9 % (0-9); NEUT # 6.9 x10^3uL (1.8-7.7); NEUT % 70 % (31-73); PLATELET COUNT 280 x10^3/uL (140-400); RED BLOOD COUNT 3.92 x10^6/uL (3.50-5.40); RED CELL DISTRIBUTION WIDTH 14.3 % (11.5-14.5); WHITE BLOOD COUNT 9.9 x10^3/uL (4.0-11.0)
[2017-05-13 20:42] LABS: ALBUMIN 2.9 g/dL (3.4-5.0); CALCIUM 9.1 mg/dL (8.5-10.1); CREATININE 1.1 mg/dL (0.6-1.0); DIRECT BILIRUBIN 0.2 mg/dL (0.0-0.2); GFR 47.3; TOTAL BILIRUBIN 0.6 mg/dL (0.2-1.0); TOTAL PROTEIN 7.2 g/dL (6.4-8.2)
[2017-05-13 20:44] LABS: POTASSIUM 2.9 mmol/L (3.5-5.1)
[2017-05-13 20:46] LABS: CLARITY,URINE HAZY; COLOR,URINE YELLOW; GLUCOSE,URINE 100 mg/dL (NEG)
[2017-05-13 20:48] LABS: BILIRUBIN,URINE NEG (NEG); NITRITE,URINE NEG (NEG); UROBILINOGEN,URINE 0.2 mg/dL (0.2 mg/dL)
[2017-05-13 20:49] LABS: BACTERIA,URINE 0 /HPF (0-FEW); HYALINE CASTS, URINE MANY /HPF; SQUAMOUS EPITHELIAL CELL,UR MANY /LPF
[2017-05-13] MEDS ORDERED: POTASSIUM CHLORIDE 20 MEQ TABLET.ER. PO ONE (21:15)
--- NOTE | 2017-05-13 21:40 | RAD ---
Exam performed: CT scan of the abdomen and pelvis with contrast Clinical Indication: Abdominal pain, diarrhea and vomiting with nausea. Patient is a poor historian Date of Service: 05/13/2017 comparison: CT abdomen and pelvis from February 07, 2017 Technique: Contiguous helical acquisitions are obtained from the lung bases to the pelvis during intravenous administration of [50 cc of Omnipaque 300]. In addition oral contrast was also given. Sagittal and coronal reformatted images were obtained and reviewed. CT abdomen findings: The lung bases appear essentially clear. Visualized heart is normal The liver, spleen and pancreas appears unremarkable. Previous cholecystectomy. Mild dilation of the common bile duct may be related to reservoir effect from prior cholecystectomy. Both adrenal glands and bilateral kidneys appear normal with symmetric excretion of contrast via both kidneys. The small bowel loops appear nondilated and unremarkable. Aorta is normal in caliber, however diffuse atheromatous calcification is noted. IVC filter There is no retroperitoneal lymphadenopathy or mass lesions. No bowel related inflammatory stranding is noted. Visualized appendix is normal No obvious stranding is seen in the pericecal region. CT pelvis findings: The pelvic bowel loops are nondilated and unremarkable. The urinary bladder is decompressed, however normal. Uterus is anteverted, no adnexal masses seen Interrogation of bone windows demonstrates generalized osteopenia and spondylotic changes and multilevel chronic compression fractures involving the thoracolumbar spine status post vertebroplasty. Sagittal and coronal reformatted images were obtained and reviewed which demonstrate no additional findings. Postoperative changes seen in the right hip. Impression abdomen and pelvis : 1. No acute intra-abdominal or pelvic process is detected. 2. Status post cholecystectomy. PQRS Compliance Statement: One or more of the following individualized dose reduction techniques were utilized for this examination: 1. Automated exposure control 2. Adjustment of the mA and/or kV according to patient size 3. Use of iterative reconstruction technique Electronically signed by: Mary Shahid MD (05/13/2017 9:37 PM) [facility]
[2017-05-13 21:50] VITALS: BP 172/86
[2017-05-13] MEDS ORDERED: ONDA8TAB12 PO (21:51)
[2017-05-13] MEDS ORDERED: POTA10CA PO (21:51)
[2017-05-13] MEDS ORDERED: DIPH1TAB PO (21:51)
== END 2017-05-13 21:57 | disposition home or self-care (01) ==
LOC: ER 18:10
DX: E86.0 Dehydration (principal); G89.29 Other chronic pain; E87.6 Hypokalemia; R11.2 Nausea with vomiting, unspecified; R10.84 Generalized abdominal pain; I25.10 Atherosclerotic heart disease of native coronary artery without angina pectoris; I11.0 Hypertensive heart disease with heart failure; I50.9 Heart failure, unspecified; Z86.73 Personal history of transient ischemic attack (TIA), and cerebral infarction without residual deficits; Z87.440 Personal history of urinary (tract) infections; Z87.891 Personal history of nicotine dependence; I48.91 Unspecified atrial fibrillation; Z95.1 Presence of aortocoronary bypass graft
CPT/HCPCS: 36415; 74177; 80048; 80076; 81001; 82553; 83690; 84484; 85025; 87086; 93005; 96361; 96374; 96375; 96376; 99285; J1170; J2405; Q9967; J7030

== ENCOUNTER 2017-07-01 20:13 | Inpatient (IN) | payer MEDICARE, OTHER ==
[~2017-07-01] VITALS: Ht 144.8 cm; Wt 42.7 kg
[~2017-07-01 20:13] MED LIST changes: +DIPH1TAB PO; +ONDA8TAB12 PO; +POTA10CA PO; -SCOP1PAT TD; +SCOP1PAT11 TD
[2017-07-01] MEDS ORDERED: HYDROmorphone PF 1 MG/ML DISP.SYRIN IV/SQ PRN (20:45)
[2017-07-01] MEDS ORDERED: 0.9 % SODIUM CHLORIDE 10 ML DISP.SYRIN. IV PRN (20:45)
[2017-07-01] MEDS ORDERED: LORazepam 2 MG/ML VIAL IV ONE (21:00)
[2017-07-01] MEDS ORDERED: IV NORMAL SALINE 1,000ML 1,000 ML IV SCH (21:00)
[2017-07-01] MEDS ORDERED: ONDANSETRON PF 4 MG/2 ML VIAL. IV ONE (21:00)
--- NOTE | 2017-07-01 21:09 | PHYS DOC ---
Past History Past Medical History: CAD, Cancer, CHF, CVA, Heart Disease, Hypertension, VA, TIA, UTI Additional Past Medical Histor: end-stage lung cancer Past Surgical History: Coronary Bypass Surgery, Other Smoking: Cigarettes, Quit Greater Than 1 Year Alcohol Use: None Drug Use: None Adult General Chief Complaint Chief Complaint: abdominal pain HPI HPI Patient is a pleasant 86-year-old female with a known history of breast cancer requiring chemotherapy and radiation therapy as well as radical mastectomy on the left presents with chronic exacerbation of her typical "" abdominal pain. Patient was internal medicine health when she began having abdominal pain several hours prior to arrival she describes as global with mild nausea but no vomiting no diarrhea no shortness of breath or chest pain fevers chills or UTI symptoms. She normally has these bowel pains every day and typically can tolerate them but today she could not. She called EMS from her home and asked to be evaluated here in the emergency pertinent. There is nothing new or changed about this abdominal pain which has not responded to home therapy and medications. This pain is exacerbated by range of motion and movement and has not really pinpointed and pelvic area of the abdomen. She takes opiates regularly and has liquid morphine at home however her significant other has not given her any for 2 days. Opiate withdrawal is on the differential and after thoroughly discussing these issues with the patient and her spouse are agreeable to a trial of pain medications and reevaluation before initiating a full workup. Review of Systems Review of Systems Constitutional: Denies fever or chills [] Eyes: Denies change in visual acuity, redness, or eye pain [] HENT: Denies nasal congestion or sore throat [] Respiratory: Denies cough or shortness of breath [] Cardiovascular: No additional information not addressed in HPI [] GI: Positive for abdominal pain with nausea but no vomiting of bloody stools or diarrhea chronic constipation noted : Denies dysuria or hematuria [] Musculoskeletal: Denies back pain or joint pain [] Integument: Denies rash or skin lesions [] Neurologic: Denies headache, focal weakness or sensory changes [positive for general weakness] Endocrine: Denies polyuria or polydipsia [] All other systems were reviewed and found to be within normal limits, except as documented in this note. Current Medications Current Medications Current Medications Medications (Trade) Dose Ordered Sig/Aquiles Start Time Stop Time Status Last Admin Dose Admin Hydromorphone HCl (Dilaudid) 1 mg PRN Q15MIN PRN 07/01/17 20:45 07/02/17 20:44 Lorazepam (Ativan) 1 mg 1X ONCE 07/01/17 21:00 07/01/17 21:01 DC Ondansetron HCl (Zofran) 4 mg 1X ONCE 07/01/17 21:00 07/01/17 21:01 DC Sodium Chloride (Normal Saline Flush) 10 ml QSHIFT PRN 07/01/17 20:45 Allergies Allergies Allergies Coded Allergies Type Severity Reaction Last Updated Verified No Known Drug Allergies 05/16/14 No Physical Exam Physical Exam Constitutional: Patient is thin and cachectic nontoxic in appearance non- pallorous nondiaphoretic HENT: Normocephalic, atraumatic, bilateral external ears normal, oropharynx dry with mild erythema no tonsillar hypertrophy, no oral exudates, nose normal. [] Eyes: PERRLA, EOMI, conjunctiva normal, no discharge. [] Neck: Normal range of motion, no tenderness, supple, no stridor. [] Cardiovascular:Heart rate regular rhythm, no murmur [] Lungs & Thorax: Bilateral breath sounds clear to auscultation [] Abdomen: Normoactive bowel sounds soft abdomen with generalized tenderness in all quadrants. There are no pulsatile masses no guarding rebound or organomegaly there is no Hunter's or McBurney's point tenderness to palpation. There is no Murillo Bautista sign Skin: Warm, dry, no erythema, no rash. [] Back: no Obvious signs of trauma Extremities: No tenderness, no cyanosis, no clubbing, ROM intact, no edema. [] Neurologic: Alert and oriented X 3, normal motor function, normal sensory function, no focal deficits noted. [] Psychologic: Patient seems very anxious asking for pain medication very frequently Current Patient Data Lab Results Laboratory Tests Test 07/01/17 21:17 White Blood Count 10.2 x10^3/uL (4.0-11.0) Red Blood Count 2.94 x10^6/uL (3.50-5.40) L Hemoglobin 9.5 g/dL (12.0-15.5) L Hematocrit 28.5 % (36.0-47.0) L Mean Corpuscular Volume 97 fL (79-100) Mean Corpuscular Hemoglobin 32 pg (25-35) Mean Corpuscular Hemoglobin Concent 34 g/dL (31-37) Red Cell Distribution Width 15.0 % (11.5-14.5) H Platelet Count 215 x10^3/uL (140-400) Neutrophils (%) (Auto) 73 % (31-73) Lymphocytes (%) (Auto) 14 % (24-48) L Monocytes (%) (Auto) 9 % (0-9) Eosinophils (%) (Auto) 2 % (0-3) Basophils (%) (Auto) 1 % (0-3) Neutrophils # (Auto) 7.4 x10^3uL (1.8-7.7) Lymphocytes # (Auto) 1.5 x10^3/uL (1.0-4.8) Monocytes # (Auto) 0.9 x10^3/uL (0.0-1.1) Eosinophils # (Auto) 0.2 x10^3/uL (0.0-0.7) Basophils # (Auto) 0.1 x10^3/uL (0.0-0.2) Urine Collection Type Unknown Urine Color Straw Urine Clarity Clear Urine pH 6.0 Urine Specific [place] 1.020 Urine Protein 100 mg/dl (NEG-TRACE) Urine Glucose (UA) 100 mg/dL (NEG) Urine Ketones (Stick) Neg mg/dL (NEG) Urine Blood Trace (NEG) Urine Nitrite Neg (NEG) Urine Bilirubin Neg (NEG) Urine Urobilinogen Dipstick 0.2 mg/dL (0.2 mg/dL) Urine Leukocyte Esterase Neg (NEG) Urine RBC Rare /HPF (0-2) Urine WBC Occ /HPF (0-4) Urine Squamous Epithelial Cells Occ /LPF Urine Bacteria Few /HPF (0-FEW) Sodium Level 132 mmol/L (136-145) L Potassium Level 4.9 mmol/L (3.5-5.1) Chloride Level 98 mmol/L (98-107) Carbon Dioxide Level 27 mmol/L (21-32) Anion Gap 7 (6-14) Blood Urea Nitrogen 44 mg/dL (7-20) H Creatinine 1.1 mg/dL (0.6-1.0) H Estimated GFR (Cockcroft-Gault) 47.3 Glucose Level 247 mg/dL (70-99) H Calcium Level 8.4 mg/dL (8.5-10.1) L Magnesium Level 1.6 mg/dL (1.8-2.4) L Total Bilirubin 0.2 mg/dL (0.2-1.0) Direct Bilirubin < 0.1 mg/dL (0.0-0.2) Aspartate Amino Transferase (AST) 48 U/L (15-37) H Alanine Aminotransferase (ALT) 21 U/L (14-59) Alkaline Phosphatase 99 U/L (46-116) Creatine Kinase 137 U/L (26-192) Creatine Kinase MB (Mass) 6.3 ng/mL (0.0-3.6) H Creatine Kinase MB Relative Index 4.6 % (0-4) H XR-Hjb-N-Type Natriuretic Peptide 6484 pg/mL (0-449) H Total Protein 7.1 g/dL (6.4-8.2) Albumin 2.6 g/dL (3.4-5.0) L Lipase 129 U/L (73-393) EKG EKG []Patient EKG read with me at 9:56 PM 0-2017 temperature 8 sinus rhythm with a heart rate of 93 16 at which is normal, patient has a large P wave in lead 2 which is likely consistent with left atrial enlargement there is a Q-wave in V1 and V2 which is likely from an old VA patient's QRS width is 80 which is normal, QTC is 465 which is normal, this is an abnormal EKG with only infarct. No new ST segment or T-wave changes consistent with ischemia today. Radiology/Procedures Radiology/Procedures []Single AP chest x-ray reviewed by me demonstrate a large mass within the right upper lobe as well as some chronic markings consistent with COPD and chronic atelectasis. Normal cardiac shadow there is a sternotomy noted comes along her left lateral chest breast wall likely from mastectomy. No pneumothorax no pneumomediastinum noted Course & Med Decision Making Course & Med Decision Making Pertinent Labs and Imaging studies reviewed. (See chart for details) []Reason presents with chronic abdominal pain and chronic chest pain today she has a history of congestive heart, chronic age or fibrillation prior VA my concern is that her abdominal pain may be related to withdrawal or some intra- abdominal catastrophe. Patient has tenderness in all quadrants with no focal tenderness in the one particular area. Patient's CK-MB is mildly elevated patient's CK MB ratio is elevated patient's proBNP is also elevated her creatinine is 1.1 her BUNs is 44 this patient magnesium level is 1.6, patient's calcium level is also low at 8.1, patient's abnormal level is low so when adjusted it appropriately normal patient's sodium levels 132, patient's CK-MB ratio and CK are always elevated as well as her elevated proBNP which is normal for her. Patient's magnesium level typically lies between 1.3 and 1.6. Patient's sodium level also has been low chronically. Patient's troponin normally runs about 0.2 but today's 10 times as high and is now measuring greater than 2. Patient has interval points of pain in the abdomen as well as shortness breath with movement but then it resolved with treatment. Patient has no dynamic EKG changes noted on the monitor or with the initial EKG. I ordered spoken to internal medicine physician. Compressor Repairer note: Dr. Dunaway Compressor Repairer called at of the service service called at 10:45 PM Consult called back at 10:45 PM Discussed the case I presented and they agreed with admission. Time of acceptance 10:45 PM "I have assessed this patient clinically and believe that their condition requires an admission to the hospital. After consulting the admitting physician about this case, they have asked that I admit this patient to their service as an inpatient based on the clinical presentation and my impression." I spent approximately 45-50 minutes working and engaged directly in the patient care providing critical care evaluation this includes but not limited to time spent engaged in work directly related to the individual patients care. I spent time at the bedside, reviewing test results, discussing the case with staff, documenting the medical record and time spent with EMS discussing specific treatment issues when the patient presented and during his evaluation. I will consult cardiology complete serial enzyme workup of this patient as we fluid hydrate her judiciously family at bedside asking that she be admitted here to the hospital and be medically managed. [place] Disclaimer [place] Disclaimer This electronic medical record was generated, in whole or in part, using a voice recognition dictation system. Departure Departure: Impression: Primary Impression: Chronic abdominal pain Additional Impressions: Nausea Constipation Chest pain Elevated troponin Dehydration Hypomagnesemia Disposition: ADMITTED INPATIENT Admitting Physician: Anel Dunaway Condition: GUARDED Referrals: MINI CHAPMAN APRN (PCP) Patient Instructions: Abdominal Pain, Dehydration, Adult, Shortness of Breath Problem Qualifiers BROCK FORDE MD Jul 01, 2017 21:09
[2017-07-01 21:41] LABS: BASO # 0.1 x10^3/uL (0.0-0.2); BASO % 1 % (0-3); EOS # 0.2 x10^3/uL (0.0-0.7); EOS % 2 % (0-3); HEMATOCRIT 28.5 % (36.0-47.0); HEMOGLOBIN 9.5 g/dL (12.0-15.5); LYMPH # 1.5 x10^3/uL (1.0-4.8); LYMPH % 14 % (24-48); MEAN CORPUSCULAR HEMOGLOBIN 32 pg (25-35); MEAN CORPUSCULAR HGB CONC 34 g/dL (31-37); MEAN CORPUSCULAR VOLUME 97 fL (79-100); MONO # 0.9 x10^3/uL (0.0-1.1); MONO % 9 % (0-9); NEUT # 7.4 x10^3uL (1.8-7.7); NEUT % 73 % (31-73); PLATELET COUNT 215 x10^3/uL (140-400); RED BLOOD COUNT 2.94 x10^6/uL (3.50-5.40); WHITE BLOOD COUNT 10.2 x10^3/uL (4.0-11.0)
[2017-07-01 21:57] LABS: BILIRUBIN,URINE NEG (NEG); CLARITY,URINE CLEAR; COLOR,URINE STRAW; GLUCOSE,URINE 100 mg/dL (NEG)
[2017-07-01 21:58] LABS: BACTERIA,URINE FEW /HPF (0-FEW); NITRITE,URINE NEG (NEG); RBC,URINE RARE /HPF (0-2); SQUAMOUS EPITHELIAL CELL,UR OCC /LPF; UROBILINOGEN,URINE 0.2 mg/dL (0.2 mg/dL); WBC,URINE OCC /HPF (0-4)
[2017-07-01 22:02] LABS: ALBUMIN 2.6 g/dL (3.4-5.0); ALK PHOS 99 U/L (46-116); ALT (SGPT) 21 U/L (14-59); ANION GAP 7 (6-14); AST (SGOT) 48 U/L (15-37); BLOOD UREA NITROGEN 44 mg/dL (7-20); CALCIUM 8.4 mg/dL (8.5-10.1); CARBON DIOXIDE 27 mmol/L (21-32); CHLORIDE 98 mmol/L (98-107); CREATININE 1.1 mg/dL (0.6-1.0); DIRECT BILIRUBIN < 0.1 mg/dL (0.0-0.2); GFR 47.3; GLUCOSE 247 mg/dL (70-99); LIPASE 129 U/L (73-393); MAGNESIUM 1.6 mg/dL (1.8-2.4); POTASSIUM 4.9 mmol/L (3.5-5.1); SODIUM 132 mmol/L (136-145); TOTAL BILIRUBIN 0.2 mg/dL (0.2-1.0); TOTAL PROTEIN 7.1 g/dL (6.4-8.2)
--- NOTE | 2017-07-01 22:27 | EKG ---
[address] [address] Test Date: 2017-07-01 Test Time: 21:56:16 Pat Name: CAROLINE CARTER Department: Room: Gender: F Deck Builder: RANJAN : 1930 Requested By: BROCK FORDE Order Number: [id number] Reading MD: Dionte Medina Measurements Intervals [place] Rate: 93 P: 59 MN: 166 QRS: 57 QRSD: 80 T: 83 QT: 372 QTc: 465 Interpretive Statements SINUS RHYTHM ATRIAL PREMATURE COMPLEX(ES) QRS(T) CONTOUR ABNORMALITY CONSISTENT WITH ANTEROSEPTAL INFARCT PROBABLY OLD ABNORMAL ECG RI6.01 Electronically Signed On 07-04-2017 10:02:29 FLIGHT OPERATIONS ENGINEER by Dionte Medina
[2017-07-01] MEDS ORDERED: HYDROmorphone PF 1 MG/ML DISP.SYRIN IV ONE (23:00)
[2017-07-01] MEDS ORDERED: MAGNESIUM SULFATE 2GM 50 ML IV ONE (23:00)
[2017-07-02 00:50] VITALS: BP 131/80
[2017-07-02] MEDS ORDERED: DULO30CA43 PO (01:33)
[2017-07-02 05:50] VITALS: BP 129/77
[2017-07-02 07:09] LABS: BASO # 0.1 x10^3/uL (0.0-0.2); BASO % 1 % (0-3); EOS # 0.2 x10^3/uL (0.0-0.7); EOS % 2 % (0-3); HEMATOCRIT 27.4 % (36.0-47.0); LYMPH # 1.5 x10^3/uL (1.0-4.8); LYMPH % 15 % (24-48); MEAN CORPUSCULAR HEMOGLOBIN 32 pg (25-35); MEAN CORPUSCULAR HGB CONC 33 g/dL (31-37); MEAN CORPUSCULAR VOLUME 97 fL (79-100); MONO # 0.9 x10^3/uL (0.0-1.1); MONO % 10 % (0-9); NEUT % 72 % (31-73); PLATELET COUNT 223 x10^3/uL (140-400); RED BLOOD COUNT 2.83 x10^6/uL (3.50-5.40); RED CELL DISTRIBUTION WIDTH 15.3 % (11.5-14.5); WHITE BLOOD COUNT 9.7 x10^3/uL (4.0-11.0)
[2017-07-02 07:10] LABS: ALBUMIN 2.5 g/dL (3.4-5.0); ALBUMIN/GLOBULIN RATIO 0.6 (1.0-1.7); CALCIUM 8.6 mg/dL (8.5-10.1); GFR 52.8; MAGNESIUM 2.1 mg/dL (1.8-2.4); POTASSIUM 4.6 mmol/L (3.5-5.1); TOTAL BILIRUBIN 0.2 mg/dL (0.2-1.0); TOTAL PROTEIN 6.7 g/dL (6.4-8.2)
--- NOTE | 2017-07-02 07:39 | RAD ---
Portable chest, 07/01/2017: History: Shortness of breath, lung cancer Comparison is made to a study from 04/11/2017. There has been a previous median sternotomy. The heart size is normal. There is calcific plaquing of the aorta and coronary arteries. There is a persistent poorly marginated mass in the left upper chest measuring 4-5 cm in diameter. There is now mild adjacent infiltrate obscuring the adjacent lateral margin of the proximal descending thoracic aorta. The pulmonary interstitial markings are mildly prominent. No pleural fluid is evident. The bony structures are demineralized. IMPRESSION: 1. Persistent left upper lobe mass compatible with the history of lung cancer with increasing mild adjacent pulmonary infiltrate. 2. Mild interstitial prominence in the lungs suggesting low-grade interstitial edema versus an interstitial form of pneumonia or lymphangitic metastatic disease.
--- NOTE | 2017-07-02 09:14 | PDOC2 ---
MINDIYEIMY Tom SADDLE STITCHING MACHINE OPERATOR 07/02/17 0914: CONSULT Date of Admission DATE: 07/02/17 TIME: 09:11 Reason for Consult: elevated troponin Problem List Problems Medical Problems: (1) Chest pain Status: Acute (2) Chronic abdominal pain Status: Acute (3) Constipation Status: Acute (4) Dehydration Status: Acute (5) Elevated troponin Status: Acute (6) Hypomagnesemia Status: Acute (7) Nausea Status: Acute History of Present Illness Ms Reyes is an 85 year old female with history of coronary artery disease, CABG , PAD with stents and CVA as well as lung cancer for which she has been on hospice. She presented to the ED with complaints of abdominal pain. This is apparently not new and she takes liquid morphine at home. According to the ED report she had apparently not been given this, however, for the last 24-48 hours. She was admitted for pain management and during her evaluation it was noted that her troponin was elevated so a consult was called. She is currently pain free and reports that she continues to have hospice care. She denies chest pain, or increased dyspnea. She has been up in her room and denies any complaints at this time. Past Medical History hypertension, osteoporosis, CAD, [place], CVA, TIA, PVD, diabetes mellitus, dyslipidemia, chronic low back pain, depression, chronic kidney disease, amenia , COPD and lung cancer She normally follows with Dr Ba for CAD Echo 03/12/2016 The left ventricle is hyperdynamic. The Ejection Fraction is 70%. There is normal LV segmental wall motion. Tissue Doppler imaging reveals mild left ventricular diastolic dysfunction. Doppler and Color Flow revealed mild aortic regurgitation. Doppler and Color Flow revealed mild tricuspid regurgitation. The PA pressure was estimated at 30 mmHg. Limited Echo 04/11/17 Left ventricle systolic function is normal. The Ejection Fraction is 60-65%. There is normal LV segmental wall motion. Limited echo for LV function only. Past Surgical History cholecystectomy, neck surgery, hysterectomy, left mastectomy, vertebroplasty, PAD with stent, Hip surgery Family History CAD, CAF, [place], CABG Social History non smoker, no significant ETOH, no illicit drugs. lives with her and being followed by [facility]. Current Medications Current Medications Hydromorphone HCl (Dilaudid) 1 mg PRN Q15MIN PRN IV/SQ PAIN GREATER THAN 3/10; Start 07/01/17 at 20:45; Stop 07/02/17 at 20:44 Sodium Chloride 1,000 ml @ 200 mls/hr Q5H IV Last administered on 07/01/17at 21 :31; Start 07/01/17 at 21:00; Stop 07/02/17 at 01:59; Status DC Sodium Chloride (Normal Saline Flush) 10 ml QSHIFT PRN IV AFTER MEDS AND BLOOD DRAWS; Start 07/01/17 at 20:45 Ondansetron HCl (Zofran) 4 mg 1X ONCE IV Last administered on 07/01/17at 21:31 ; Start 07/01/17 at 21:00; Stop 07/01/17 at 21:01; Status DC Lorazepam (Ativan) 1 mg 1X ONCE IV Last administered on 07/01/17at 21:31; Start 07/01/17 at 21:00; Stop 07/01/17 at 21:01; Status DC Magnesium Sulfate 50 ml @ 25 mls/hr 1X ONCE IV Last administered on 07/01/17at 23:00; Start 07/01/17 at 23:00; Stop 07/02/17 at 00:59; Status DC Hydromorphone HCl (Dilaudid) 1 mg 1X ONCE IV Last administered on 07/01/17at 23 :00; Start 07/01/17 at 23:00; Stop 07/01/17 at 23:02; Status DC Active Scripts Active Ondansetron Odt (Ondansetron) 4 Mg Tab.rapdis 4 Mg PO PRN Q4HRS PRN Morphine Sulfate 100 Mg/5 Ml Solution 20 Mg SL PRN Q3HRS PRN 30 Days Transderm-Scop (Scopolamine) 1 Each Patch.td72 1 Patch TD Q3DAYS 14 Days Reported Duloxetine Hcl 30 Mg Capsule.dr 30 Mg PO DAILY Allergies: Coded Allergies: No Known Drug Allergies (Unverified , 05/16/14) Review of System as per HPI General: Alert, Oriented X3, Cooperative, No acute distress HEENT: Atraumatic, EOMI Lungs: Other (decreased bilateral bases, right >left) Heart: Regular rate, Normal S1, Normal S2 Abdomen: Normal bowel sounds, Soft, No tenderness Extremities: No edema, Normal pulses Neuro: Normal speech, Strength at 5/5 X4 ext Psych/Mental Status: Mental status NL, Mood NL VITALS Vital Signs Date Time Temp Pulse Resp B/P (MAP) Pulse Ox O2 Delivery O2 Flow Rate FiO2 07/02/17 05:50 98.1 87 20 129/77 (94) 97 Room Air 07/01/17 20:20 96.0 Labs Laboratory Tests Test 07/01/17 21:00 07/01/17 21:17 07/02/17 00:49 07/02/17 06:30 Troponin I Quantitative 2.533 ng/mL (0-0.055) 4.195 ng/mL (0-0.055) White Blood Count 10.2 x10^3/uL (4.0-11.0) 9.7 x10^3/uL (4.0-11.0) Red Blood Count 2.94 x10^6/uL (3.50-5.40) 2.83 x10^6/uL (3.50-5.40) Hemoglobin 9.5 g/dL (12.0-15.5) 9.0 g/dL (12.0-15.5) Hematocrit 28.5 % (36.0-47.0) 27.4 % (36.0-47.0) Mean Corpuscular Volume 97 fL (79-100) 97 fL (79-100) Mean Corpuscular Hemoglobin 32 pg (25-35) 32 pg (25-35) Mean Corpuscular Hemoglobin Concent 34 g/dL (31-37) 33 g/dL (31-37) Red Cell Distribution Width 15.0 % (11.5-14.5) 15.3 % (11.5-14.5) Platelet Count 215 x10^3/uL (140-400) 223 x10^3/uL (140-400) Neutrophils (%) (Auto) 73 % (31-73) 72 % (31-73) Lymphocytes (%) (Auto) 14 % (24-48) 15 % (24-48) Monocytes (%) (Auto) 9 % (0-9) 10 % (0-9) Eosinophils (%) (Auto) 2 % (0-3) 2 % (0-3) Basophils (%) (Auto) 1 % (0-3) 1 % (0-3) Neutrophils # (Auto) 7.4 x10^3uL (1.8-7.7) 7.0 x10^3uL (1.8-7.7) Lymphocytes # (Auto) 1.5 x10^3/uL (1.0-4.8) 1.5 x10^3/uL (1.0-4.8) Monocytes # (Auto) 0.9 x10^3/uL (0.0-1.1) 0.9 x10^3/uL (0.0-1.1) Eosinophils # (Auto) 0.2 x10^3/uL (0.0-0.7) 0.2 x10^3/uL (0.0-0.7) Basophils # (Auto) 0.1 x10^3/uL (0.0-0.2) 0.1 x10^3/uL (0.0-0.2) Urine Collection Type Unknown Urine Color Straw Urine Clarity Clear Urine pH 6.0 Urine Specific [place] 1.020 Urine Protein 100 mg/dl (NEG-TRACE) Urine Glucose (UA) 100 mg/dL (NEG) Urine Ketones (Stick) Neg mg/dL (NEG) Urine Blood Trace (NEG) Urine Nitrite Neg (NEG) Urine Bilirubin Neg (NEG) Urine Urobilinogen Dipstick 0.2 mg/dL (0.2 mg/dL) Urine Leukocyte Esterase Neg (NEG) Urine RBC Rare /HPF (0-2) Urine WBC Occ /HPF (0-4) Urine Squamous Epithelial Cells Occ /LPF Urine Bacteria Few /HPF (0-FEW) Sodium Level 132 mmol/L (136-145) 132 mmol/L (136-145) Potassium Level 4.9 mmol/L (3.5-5.1) 4.6 mmol/L (3.5-5.1) Chloride Level 98 mmol/L (98-107) 99 mmol/L (98-107) Carbon Dioxide Level 27 mmol/L (21-32) 28 mmol/L (21-32) Anion Gap 7 (6-14) 5 (6-14) Blood Urea Nitrogen 44 mg/dL (7-20) 37 mg/dL (7-20) Creatinine 1.1 mg/dL (0.6-1.0) 1.0 mg/dL (0.6-1.0) Estimated GFR (Cockcroft-Gault) 47.3 52.8 Glucose Level 247 mg/dL (70-99) 186 mg/dL (70-99) Calcium Level 8.4 mg/dL (8.5-10.1) 8.6 mg/dL (8.5-10.1) Magnesium Level 1.6 mg/dL (1.8-2.4) 2.1 mg/dL (1.8-2.4) Total Bilirubin 0.2 mg/dL (0.2-1.0) 0.2 mg/dL (0.2-1.0) Direct Bilirubin < 0.1 mg/dL (0.0-0.2) Aspartate Amino Transf (AST/SGOT) 48 U/L (15-37) 38 U/L (15-37) Alanine Aminotransferase (ALT/SGPT) 21 U/L (14-59) 19 U/L (14-59) Alkaline Phosphatase 99 U/L (46-116) 86 U/L (46-116) Creatine Kinase 137 U/L (26-192) Creatine Kinase MB (Mass) 6.3 ng/mL (0.0-3.6) Creatine Kinase MB Relative Index 4.6 % (0-4) CD-Spt-S-Type Natriuretic Peptide 6484 pg/mL (0-449) Total Protein 7.1 g/dL (6.4-8.2) 6.7 g/dL (6.4-8.2) Albumin 2.6 g/dL (3.4-5.0) 2.5 g/dL (3.4-5.0) Lipase 129 U/L (73-393) Glucose (Fingerstick) 202 mg/dL (70-99) BUN/Creatinine Ratio 37 (6-20) Albumin/Globulin Ratio 0.6 (1.0-1.7) Images CXR - IMPRESSION: 1. Persistent left upper lobe mass compatible with the history of lung cancer with increasing mild adjacent pulmonary infiltrate. 2. Mild interstitial prominence in the lungs suggesting low-grade interstitial edema versus an interstitial form of pneumonia or lymphangitic metastatic disease. Assessment/Plan 1. NSTEMI - in the setting of lung cancer, possible opiate withdrawal and apparently on hospice. She is currently angina free. Suggest supportive care from a CV perspective. Could consider resuming beta blockers though all non palliative medications were discontinued on entering Hospice. 2. lung cancer - On hospice with [facility]. 3. CAD/CABG status 4. PHTN 5. Hypertension. Problems: RD CAVAZOS MD 07/02/17 1420: CONSULT Allergies: Coded Allergies: No Known Drug Allergies (Unverified , 05/16/14) Assessment/Plan Patient seen and examined. Agree with HEALTH CENTER ASSOCIATE's assessment and plan Agree with conservative management for non-STEMI considering patient's comorbidities and overall prognosis Patient currently enrolled in hospice Continue current medical regimen Thank you for your consultation Problems: YEIMY OBREGON APRN Jul 02, 2017 09:[address] CAVAZOS MD Jul 02, 2017 14:20
[2017-07-02] MEDS ORDERED: ASPI-630 PO (11:37)
[2017-07-02] MEDS ORDERED: INSU100I13 SQ (11:37)
[2017-07-02] MEDS ORDERED: SIMV20TA3 PO (11:37)
[2017-07-02] MEDS ORDERED: DOCU100T11 PO (11:37)
[2017-07-02] MEDS ORDERED: FAMO20TA5 PO (11:37)
[2017-07-02] MEDS ORDERED: MULT1TAB97 PO (11:37)
[2017-07-02] MEDS ORDERED: CALC-157 PO (11:37)
[2017-07-02] MEDS ORDERED: INSU100C4 SQ (11:37)
[2017-07-02] MEDS ORDERED: HYDR40TA PO (11:37)
[2017-07-02 11:55] VITALS: BP 133/72
[2017-07-02] MEDS ORDERED: CARV12.52 PO (11:56)
--- NOTE | 2017-07-02 17:00 | SSS ---
ADMIT DATE: 07/02/2017 SHORT STAY SUMMARY Stay was greater than 8 hours and less than 24. Care was given by myself and she was also seen by Cardiology. DISCHARGE DIAGNOSES: 1. Non-STEMI. 2. Metastatic lung cancer. 3. Frail elderly. 4. Hypomagnesemia. 5. History of coronary artery disease with stent placement. HOSPITAL COURSE: This is an 86-year-old female who resides at home. She has been on hospice. tried to call hospice multiple times. She was having some chest pain at home and was not feeling well and so he elected to bring her to the hospital. Her troponins were positive and she will be treated medically. She has had a non-STEMI. Due to her debilitated state, she is not a candidate for any aggressive intervention. PHYSICAL EXAMINATION: VITAL SIGNS: Blood pressure 132/72, pulse 87, respirations 20, pulse ox 97% on room air, temperature 98. GENERAL: Her color is pale. HEENT: Tongue was moist. NECK: Supple. LUNGS: Clear in all klein. CARDIOVASCULAR: Regular rhythm and rate. ABDOMEN: Soft, nontender. EXTREMITIES: Without edema. LABORATORY DATA: Hemoglobin 9.0, hematocrit 27.4. Troponin was 2.533 and increased to 4.195. Sodium 132. ASSESSMENT: 1. Chest pain. 2. Non- ST-elevation myocardial infarction. 3. History of coronary artery disease and stent placement. 4. Debilitated state. 5. End-stage lung cancer, left upper lobe. 6. Mild hyponatremia. 7. Severe protein calorie malnutrition. PLAN: Medical treatment and discharged home back on hospice. LEONCIO HORTON DO DR: LEFTY/anayeli JOB#: [id number] / [id number]
== END 2017-07-02 12:45 | disposition home or self-care (01) | DRG 280 ==
LOC: ER 20:13 → 1 SOUTH 22:42
PROVIDERS: ADMIT Internal Medicine; ATTEND Internal Medicine
DX: I21.4 Non-ST elevation (NSTEMI) myocardial infarction (principal); E43 Unspecified severe protein-calorie malnutrition; E11.22 Type 2 diabetes mellitus with diabetic chronic kidney disease; E11.51 Type 2 diabetes mellitus with diabetic peripheral angiopathy without gangrene; E86.0 Dehydration; E83.42 Hypomagnesemia; I07.1 Rheumatic tricuspid insufficiency; E87.1 Hypo-osmolality and hyponatremia; C34.12 Malignant neoplasm of upper lobe, left bronchus or lung; I13.0 Hypertensive heart and chronic kidney disease with heart failure and stage 1 through stage 4 chronic kidney disease, or unspecified chronic kidney disease; I50.9 Heart failure, unspecified; E78.5 Hyperlipidemia, unspecified; G89.29 Other chronic pain; I25.10 Atherosclerotic heart disease of native coronary artery without angina pectoris; I25.2 Old myocardial infarction; J44.9 Chronic obstructive pulmonary disease, unspecified; K59.00 Constipation, unspecified; F32.9 Major depressive disorder, single episode, unspecified; M81.0 Age-related osteoporosis without current pathological fracture; I27.20 Pulmonary hypertension, unspecified; N18.9 Chronic kidney disease, unspecified; M54.5 Low back pain; Z51.5 Encounter for palliative care; Z82.49 Family history of ischemic heart disease and other diseases of the circulatory system; Z85.3 Personal history of malignant neoplasm of breast; Z86.73 Personal history of transient ischemic attack (TIA), and cerebral infarction without residual deficits; Z87.891 Personal history of nicotine dependence; Z90.710 Acquired absence of both cervix and uterus; Z95.1 Presence of aortocoronary bypass graft; Z95.5 Presence of coronary angioplasty implant and graft; Z87.440 Personal history of urinary (tract) infections; Z92.21 Personal history of antineoplastic chemotherapy; Z92.3 Personal history of irradiation; Z68.20 Body mass index [BMI] 20.0-20.9, adult; Z90.49 Acquired absence of other specified parts of digestive tract; Z90.12 Acquired absence of left breast and nipple
CPT/HCPCS: 36415; 71045; 80048; 80053; 80076; 81001; 82553; 82947; 83690; 83735; 83880; 84443; 84484; 85025; 93005; 96361; 96365; 96375; J1170; J2060; J2405; J3475; 99291-25; J7030

== ENCOUNTER 2017-07-13 11:37 | Emergency (ER) | payer MEDICARE, OTHER ==
[~2017-07-13 11:37] MED LIST changes: +CALC-157 PO; +DOCU100T11 PO; +DULO30CA43 PO; +MULT1TAB97 PO
[2017-07-13] MEDS ORDERED: IOHEXOL 240 MG/ML 50ML VIAL. ONE (12:05)
[2017-07-13] MEDS ORDERED: ONDANSETRON PF 4 MG/2 ML VIAL. IV ONE (12:30)
[2017-07-13 12:39] LABS: BILIRUBIN,URINE NEG (NEG); CLARITY,URINE CLEAR; COLOR,URINE YELLOW; GLUCOSE,URINE 100 mg/dL (NEG)
[2017-07-13 12:40] LABS: BACTERIA,URINE FEW /HPF (0-FEW); HYALINE CASTS, URINE OCC /HPF; NITRITE,URINE NEG (NEG); RBC,URINE OCC /HPF (0-2); SQUAMOUS EPITHELIAL CELL,UR FEW /LPF; UROBILINOGEN,URINE 0.2 mg/dL (0.2 mg/dL); WBC,URINE OCC /HPF (0-4)
[2017-07-13 12:46] LABS: BASO # 0.1 x10^3/uL (0.0-0.2); BASO % 2 % (0-3); EOS # 0.3 x10^3/uL (0.0-0.7); EOS % 4 % (0-3); HEMATOCRIT 35.2 % (36.0-47.0); HEMOGLOBIN 11.4 g/dL (12.0-15.5); LYMPH # 1.4 x10^3/uL (1.0-4.8); LYMPH % 15 % (24-48); MEAN CORPUSCULAR HEMOGLOBIN 31 pg (25-35); MEAN CORPUSCULAR HGB CONC 32 g/dL (31-37); MEAN CORPUSCULAR VOLUME 97 fL (79-100); MONO # 0.5 x10^3/uL (0.0-1.1); MONO % 5 % (0-9); NEUT # 7.1 x10^3uL (1.8-7.7); NEUT % 75 % (31-73); PLATELET COUNT 262 x10^3/uL (140-400); RED BLOOD COUNT 3.64 x10^6/uL (3.50-5.40); RED CELL DISTRIBUTION WIDTH 14.9 % (11.5-14.5); WHITE BLOOD COUNT 9.5 x10^3/uL (4.0-11.0)
[2017-07-13 13:27] LABS: ALBUMIN 3.3 g/dL (3.4-5.0); ALBUMIN/GLOBULIN RATIO 0.7 (1.0-1.7); CALCIUM 9.4 mg/dL (8.5-10.1); CREATININE 0.9 mg/dL (0.6-1.0); GFR 59.7; MAGNESIUM 1.7 mg/dL (1.8-2.4); TOTAL BILIRUBIN 0.3 mg/dL (0.2-1.0); TOTAL PROTEIN 8.1 g/dL (6.4-8.2)
[2017-07-13] MEDS ORDERED: IOHEXOL 300 MG/ML 75 ML VIAL. IV ONE (13:30)
[2017-07-13] MEDS ORDERED: IV NORMAL SALINE 500ML 500 ML IV ONE ×2 (13:30→18:45)
[2017-07-13] MEDS ORDERED: METOCLOPRAMIDE 10 MG TABLET PO ONE (13:30)
[2017-07-13] MEDS ORDERED: METOCLOPRAMIDE HCL 10 MG/2 ML VIAL. IV ONE (13:30)
[2017-07-13] MEDS ORDERED: METOCLOPRAMIDE HCL 10 MG/2 ML VIAL. ONE (13:33)
--- NOTE | 2017-07-13 13:52 | PHYS DOC ---
Past History Past Medical History: CAD, Cancer, CHF, CVA, Heart Disease, Hypertension, MD, TIA, UTI Additional Past Medical Histor: end-stage lung cancer Past Surgical History: Coronary Bypass Surgery, Other Smoking: Cigarettes, Quit Greater Than 1 Year Alcohol Use: None Drug Use: None Adult General Chief Complaint Chief Complaint: ABDOMINAL PAIN [facility] 86-year-old female patient with history of metastatic lung cancer and diabetes and hypertension and is sent hospitalization in July 02 for non-STEMI complaining of generalized abdominal pain since this morning as a constant pain without radiation. Patient had 1 episode of vomiting after she ate at [facility] patient states she thinks she had a bowel movement this morning and denies fever and urinary symptom. Patient unable to rated her pain. Patient wearing fentanyl patch. Patient is a poor historian. Review of Systems Review of Systems Constitutional: Denies fever or chills [] Eyes: Denies change in visual acuity, redness, or eye pain [] HENT: Denies nasal congestion or sore throat [] Respiratory: Denies cough or shortness of breath [] Cardiovascular: No additional information not addressed in HPI [] GI: Reports abdominal pain, nausea, vomiting, denies bloody stools or diarrhea [ ] : Denies dysuria or hematuria [] Musculoskeletal: Denies back pain or joint pain [] Integument: Denies rash or skin lesions [] Neurologic: Denies headache, focal weakness or sensory changes [] Endocrine: Denies polyuria or polydipsia [] All other systems were reviewed and found to be within normal limits, except as documented in this note. Current Medications Current Medications Current Medications Medications (Trade) Dose Ordered Sig/Aquiles Start Time Stop Time Status Last Admin Dose Admin Iohexol (Omnipaque 240 Mg/ml) 50 ml STK-MED ONCE 07/13/17 12:05 07/13/17 12:06 DC Iohexol (Omnipaque 300 Mg/ml) 75 ml 1X ONCE 07/13/17 13:30 07/13/17 13:31 DC Metoclopramide HCl (Reglan Vial) 10 mg STK-MED ONCE 07/13/17 13:33 07/13/17 13:34 DC Metoclopramide HCl (Reglan) 10 mg 1X ONCE 07/13/17 13:30 07/13/17 13:30 DC Ondansetron HCl (Zofran) 4 mg 1X ONCE 07/13/17 12:30 07/13/17 12:31 DC 07/13/17 12:57 4 MG Sodium Chloride 500 ml @ 0 mls/hr 1X ONCE 07/13/17 13:30 07/13/17 13:31 DC 07/13/17 13:38 500 MLS/HR Allergies Allergies Allergies Coded Allergies Type Severity Reaction Last Updated Verified No Known Drug Allergies 05/16/14 No Physical Exam Physical Exam Constitutional: Very thin, malnourished, mild distress, non-toxic appearance. [] HENT: Normocephalic, atraumatic, bilateral external ears normal, oropharynx moist, no oral exudates, nose normal. [] Eyes: PERRLA, EOMI, conjunctiva normal, no discharge. [] Neck: Normal range of motion, no tenderness, supple, no stridor. [] Cardiovascular:Heart rate regular rhythm, no murmur [] Lungs & Thorax: Bilateral breath sounds clear to auscultation [] Abdomen: Bowel sounds hyperactive, soft, no tenderness, right inguinal hernia with 5 x 5 cm nonreducible contents Skin: Warm, dry, no erythema, no rash. [] Back: No tenderness, no CVA tenderness. [] Extremities: No tenderness, no cyanosis, no clubbing, ROM intact, no edema. [] Neurologic: Alert and oriented X 2, normal motor function, normal sensory function, no focal deficits noted. [] Current Patient Data Lab Results Laboratory Tests Test 07/13/17 12:10 07/13/17 12:32 Urine Collection Type U cath Urine Color Yellow Urine Clarity Clear Urine pH 5.5 Urine Specific [place] 1.020 Urine Protein 100 mg/dl (NEG-TRACE) Urine Glucose (UA) 100 mg/dL (NEG) Urine Ketones (Stick) Neg mg/dL (NEG) Urine Blood Neg (NEG) Urine Nitrite Neg (NEG) Urine Bilirubin Neg (NEG) Urine Urobilinogen Dipstick 0.2 mg/dL (0.2 mg/dL) Urine Leukocyte Esterase Neg (NEG) Urine RBC Occ /HPF (0-2) Urine WBC Occ /HPF (0-4) Urine Squamous Epithelial Cells Few /LPF Urine Transitional Epithelial Cells Few /LPF Urine Bacteria Few /HPF (0-FEW) Urine Hyaline Casts Occ /HPF White Blood Count 9.5 x10^3/uL (4.0-11.0) Red Blood Count 3.64 x10^6/uL (3.50-5.40) Hemoglobin 11.4 g/dL (12.0-15.5) L Hematocrit 35.2 % (36.0-47.0) L Mean Corpuscular Volume 97 fL (79-100) Mean Corpuscular Hemoglobin 31 pg (25-35) Mean Corpuscular Hemoglobin Concent 32 g/dL (31-37) Red Cell Distribution Width 14.9 % (11.5-14.5) H Platelet Count 262 x10^3/uL (140-400) Neutrophils (%) (Auto) 75 % (31-73) H Lymphocytes (%) (Auto) 15 % (24-48) L Monocytes (%) (Auto) 5 % (0-9) Eosinophils (%) (Auto) 4 % (0-3) H Basophils (%) (Auto) 2 % (0-3) Neutrophils # (Auto) 7.1 x10^3uL (1.8-7.7) Lymphocytes # (Auto) 1.4 x10^3/uL (1.0-4.8) Monocytes # (Auto) 0.5 x10^3/uL (0.0-1.1) Eosinophils # (Auto) 0.3 x10^3/uL (0.0-0.7) Basophils # (Auto) 0.1 x10^3/uL (0.0-0.2) Sodium Level 133 mmol/L (136-145) L Potassium Level 4.0 mmol/L (3.5-5.1) Chloride Level 98 mmol/L (98-107) Carbon Dioxide Level 25 mmol/L (21-32) Anion Gap 10 (6-14) Blood Urea Nitrogen 28 mg/dL (7-20) H Creatinine 0.9 mg/dL (0.6-1.0) Estimated GFR (Cockcroft-Gault) 59.7 BUN/Creatinine Ratio 31 (6-20) H Glucose Level 192 mg/dL (70-99) H Calcium Level 9.4 mg/dL (8.5-10.1) Magnesium Level 1.7 mg/dL (1.8-2.4) L Total Bilirubin 0.3 mg/dL (0.2-1.0) Aspartate Amino Transferase (AST) 24 U/L (15-37) Alanine Aminotransferase (ALT) 16 U/L (14-59) Alkaline Phosphatase 97 U/L (46-116) Creatine Kinase 39 U/L (26-192) Creatine Kinase MB (Mass) 1.1 ng/mL (0.0-3.6) Creatine Kinase MB Relative Index 2.8 % (0-4) Troponin I Quantitative 0.023 ng/mL (0-0.055) MX-Cuq-D-Type Natriuretic Peptide 3356 pg/mL (0-449) H Total Protein 8.1 g/dL (6.4-8.2) Albumin 3.3 g/dL (3.4-5.0) L Albumin/Globulin Ratio 0.7 (1.0-1.7) L Lipase 214 U/L (73-393) EKG EKG EKG at 1354 showed atrial flutter with rate of 119, Q waves in septal leads, inverted T-wave in inferolateral leads, QTc interval abnormality Radiology/Procedures Radiology/Procedures [] [place] [address] IMAGING REPORT Signed PATIENT: CAROLINE CARTER ACCOUNT: [id number] : 1930 LOCATION: ER AGE: 86 SEX: F EXAM STATUS: REG ER ORD. PHYSICIAN: PAULA SPRAGUE MD REASON: vomiting, history of lung cancer PROCEDURE: PORTABLE CHEST 1V PORTABLE CHEST 1V History: Vomiting today, history of lung cancer Comparison: 07/01/2017 Findings: Single view of the chest is submitted. There is again large left upper lobe mass. There are left axillary clips. There again has been median sternotomy. Heart size is stable. There is no new infiltrate or pleural fluid. There is no pneumothorax. Impression: 1. There is again large mass of the left upper lobe. There is no new infiltrate. Electronically signed by: Jeremiah De La O MD (07/13/2017 2:37 PM) [id number] DICTATED AND SIGNED BY: JEREMIAH DE LA O MD DATE: 07/13/17 1181 CC: MINI CHAPMAN APRN; PAULA SPRAGUE MD ~ [address] [id number] IMAGING REPORT Signed PATIENT: CAROLINE CARTER ACCOUNT: [id number] : 1930 LOCATION: ER AGE: 86 SEX: F EXAM STATUS: REG ER ORD. PHYSICIAN: PAULA SPRAGUE MD REASON: abdominal pain PROCEDURE: CT ABDOMEN PELVIS WO CONTRAST PQRS Compliance Statement: One or more of the following individualized dose reduction techniques were utilized for this examination: 1. Automated exposure control 2. Adjustment of the mA and/or kV according to patient size 3. Use of iterative reconstruction technique CT ABDOMEN PELVIS WO CONTRAST Clinical Indication: VOMITING AND ABD PAIN TODAY PT HAS HX OF LUNG CA Comparison: CT abdomen and pelvis with contrast May 13, 2017. Technique: Helical CT imaging of the abdomen and pelvis is performed without IV or oral contrast. Findings: Evaluation of solid organs and bowel is limited without oral and IV contrast, decreasing sensitivity for detection of pathology. Median sternotomy wires. Coronary artery disease. Atelectasis or scarring in the lung bases. Cardiac size normal. There is mild circumferential wall thickening of the distal esophagus. Cholecystectomy. Infrarenal IVC filter. Liver, spleen, pancreas, and adrenal glands are normal. Severe atherosclerotic calcification of the abdominal aorta. The abdominal aorta is tortuous. No hydronephrosis. Stomach unremarkable. Proximal small bowel is normal. Distal colon is decompressed, limiting evaluation. No colon wall thickening. The appendix is normal. There is mid to distal small bowel obstruction. Point of transition is a right inguinal hernia containing loops of small bowel. The neck is relatively narrow measuring about 2.3 cm. Finding well seen on coronal image 7. The small bowel proximal to the hernia is mildly dilated and fluid-filled. No abdominal or pelvic free fluid is seen. Urinary bladder is normal. Atrophic uterus. Intramedullary randell and hip screw on the right. Compression fractures treated with vertebroplasty of T12-L3. There is retropulsion of L3 and there is posterior decompression. There is retropulsion of L1. IMPRESSION: 1. Mid to distal small bowel obstruction. Point of transition is a right inguinal hernia containing small bowel loops. 2. Mild circumferential wall thickening of the distal esophagus. Considerations include esophagitis, Moreno's esophagus, or esophageal neoplasm. Electronically signed by: Thiago John MD (07/13/2017 2:39 PM) [id number] DICTATED AND SIGNED BY: THIAGO JOHN MD DATE: 07/13/17 1431 CC: MINI CHAPMAN APRN; PAULA SPRAGUE MD ~ Course & Med Decision Making Course & Med Decision Making Pertinent Labs and Imaging studies reviewed. (See chart for details) Evaluation of patient in ER showed 86-year-old poor historian female patient with complaining of abdominal pain and nausea and vomiting without diarrhea. Patient did not have distention of abdomen but had right inguinal hernia with 5 x [address] showed small bowel obstruction with transition point of right inguinal hernia. Patient vomited once while she was in ER. Patient had one episode of atrial flutter at 1345 with heart rate of 109 and treated with 5 mg of Lopressor(because of shortage of Cardizem Lopressor was given) and heart rate dropped to 80s with sinus rhythm. Dr. Milner on-call hospitalist at [facility] accepted transfer at 1507. [] Dragon Disclaimer Dragon Disclaimer This electronic medical record was generated, in whole or in part, using a voice recognition dictation system. Departure Departure: Impression: Primary Impression: Small bowel obstruction Additional Impressions: Atrial flutter Dehydration Hyponatremia Hypomagnesemia Anemia Lung cancer Disposition: XF [facility] ([facility] at 1507) Referrals: MINI CHAPMAN APRN (PCP) Problem Qualifiers PAULA SPRAGUE MD Jul 13, 2017 13:52
[2017-07-13] MEDS ORDERED: dilTIAZem 25 MG/5 ML VIAL ONE (14:00)
--- NOTE | 2017-07-13 14:20 | EKG ---
[address] [address] Test Date: 2017-07-13 Test Time: 13:54:48 Pat Name: CAROLINE CARTER Department: Room: Gender: F Manager Marketing Communications: IVAN : 1930 Requested By: PAULA SPRAGUE Order Number: [id number] Reading MD: Measurements Intervals [place] Rate: 119 P: [place]: QRS: 48 QRSD: 92 T: -147 QT: 324 QTc: 463 Interpretive Statements ATRIAL FLUTTER QRS(T) CONTOUR ABNORMALITY CONSISTENT WITH SEPTAL INFARCT PROBABLY OLD ST & T ABNORMALITY, CONSIDER INFEROLATERAL ISCHEMIA OR LEFT VENTRICULAR STRAIN ABNORMAL ECG RI6.01 No previous ECG available for comparison
[2017-07-13] MEDS ORDERED: METOPROLOL TARTRATE 5 MG/5 ML VIAL. IV ONE (14:30)
--- NOTE | 2017-07-13 14:39 | RAD ---
PORTABLE CHEST 1V History: Vomiting today, history of lung cancer Comparison: 07/01/2017 Findings: Single view of the chest is submitted. There is again large left upper lobe mass. There are left axillary clips. There again has been median sternotomy. Heart size is stable. There is no new infiltrate or pleural fluid. There is no pneumothorax. Impression: 1. There is again large mass of the left upper lobe. There is no new infiltrate. Electronically signed by: Tyson Carrillo MD (07/13/2017 2:37 PM) [facility]
--- NOTE | 2017-07-13 14:42 | RAD ---
PQRS Compliance Statement: One or more of the following individualized dose reduction techniques were utilized for this examination: 1. Automated exposure control 2. Adjustment of the mA and/or kV according to patient size 3. Use of iterative reconstruction technique CT ABDOMEN PELVIS WO CONTRAST Clinical Indication: VOMITING AND ABD PAIN TODAY PT HAS HX OF LUNG CA Comparison: CT abdomen and pelvis with contrast May 13, 2017. Technique: Helical CT imaging of the abdomen and pelvis is performed without IV or oral contrast. Findings: Evaluation of solid organs and bowel is limited without oral and IV contrast, decreasing sensitivity for detection of pathology. Median sternotomy wires. Coronary artery disease. Atelectasis or scarring in the lung bases. Cardiac size normal. There is mild circumferential wall thickening of the distal esophagus. Cholecystectomy. Infrarenal IVC filter. Liver, spleen, pancreas, and adrenal glands are normal. Severe atherosclerotic calcification of the abdominal aorta. The abdominal aorta is tortuous. No hydronephrosis. Stomach unremarkable. Proximal small bowel is normal. Distal colon is decompressed, limiting evaluation. No colon wall thickening. The appendix is normal. There is mid to distal small bowel obstruction. Point of transition is a right inguinal hernia containing loops of small bowel. The neck is relatively narrow measuring about 2.3 cm. Finding well seen on coronal image 7. The small bowel proximal to the hernia is mildly dilated and fluid-filled. No abdominal or pelvic free fluid is seen. Urinary bladder is normal. Atrophic uterus. Intramedullary randell and hip screw on the right. Compression fractures treated with vertebroplasty of T12-L3. There is retropulsion of L3 and there is posterior decompression. There is retropulsion of L1. IMPRESSION: 1. Mid to distal small bowel obstruction. Point of transition is a right inguinal hernia containing small bowel loops. 2. Mild circumferential wall thickening of the distal esophagus. Considerations include esophagitis, Moreno's esophagus, or esophageal neoplasm. Electronically signed by: Thiago John MD (07/13/2017 2:39 PM) [id number]
[2017-07-13] MEDS ORDERED: hydrALAZINE 20 MG/ML VIAL. IV ONE (17:15)
[2017-07-13 17:51] VITALS: BP 106/50
== END 2017-07-13 18:00 | disposition short-term general hospital (02) ==
LOC: ER 11:37
DX: K56.699 Other intestinal obstruction unspecified as to partial versus complete obstruction (principal); I48.92 Unspecified atrial flutter; E86.0 Dehydration; E83.42 Hypomagnesemia; E87.1 Hypo-osmolality and hyponatremia; D64.9 Anemia, unspecified; I11.0 Hypertensive heart disease with heart failure; I50.9 Heart failure, unspecified; I25.10 Atherosclerotic heart disease of native coronary artery without angina pectoris; I25.2 Old myocardial infarction; E11.9 Type 2 diabetes mellitus without complications; F17.210 Nicotine dependence, cigarettes, uncomplicated; Z86.73 Personal history of transient ischemic attack (TIA), and cerebral infarction without residual deficits; Z87.440 Personal history of urinary (tract) infections; Z85.118 Personal history of other malignant neoplasm of bronchus and lung; Z95.1 Presence of aortocoronary bypass graft
CPT/HCPCS: 36415; 51701; 71045; 74176; 80053; 81001; 82553; 83690; 83735; 83880; 84484; 85025; 93005; 96361; 96374; 96375; 96376; 99285; J0360; J2405; J2765; J3010; J3490; J7040

== ENCOUNTER 2017-09-11 14:37 | Emergency (ER) | payer MEDICARE, OTHER ==
[2017-09-11 14:40] VITALS: BP 148/74
--- NOTE | 2017-09-11 15:04 | PHYS DOC ---
Past History Past Medical History: CAD, Cancer, CHF, CVA, Heart Disease, Hypertension, [place], TIA, UTI, Other Additional Past Medical Histor: end-stage lung cancer Past Surgical History: Coronary Bypass Surgery, Lumbar Laminectomy, Other Smoking: Cigarettes, Quit Greater Than 1 Year Alcohol Use: None Drug Use: None Adult General Chief Complaint Chief Complaint: shortness of breath HPI HPI 87-year-old female patient with history of metastatic lung cancer on hospice was at her primary care physician office for ordering denture and became shortness of breath and brought to the emergency room. Patient is a poor historian and history was taking from her . Patient states she suddenly became shortness of breath without chest pain. Patient denies cough and fever. She does not have home oxygen and her O2 sat was 97% at room air at arrival to ER. Patient has right preorbital old contusion and states is going on for 3 days and she doesn't know what happened to her. She doesn't want to stay at Hospital and refused to change to a gawn. Review of Systems Review of Systems Constitutional: Denies fever or chills [] Eyes: Denies change in visual acuity, redness, or eye pain [] HENT: Denies nasal congestion or sore throat [] Respiratory: Reports shortness of breath Cardiovascular: No additional information not addressed in HPI [] GI: Denies abdominal pain, nausea, vomiting, bloody stools or diarrhea [] : Denies dysuria or hematuria [] Musculoskeletal: Denies back pain or joint pain [] Integument: Denies rash or skin lesions [] Neurologic: Denies headache, focal weakness or sensory changes [] Endocrine: Denies polyuria or polydipsia [] All other systems were reviewed and found to be within normal limits, except as documented in this note. Current Medications Current Medications Current Medications Medications (Trade) Dose Ordered Sig/Aquiles Start Time Stop Time Status Last Admin Dose Admin Albuterol/ Ipratropium (Duoneb) 3 ml 1X ONCE 09/11/17 15:20 09/11/17 15:21 Allergies Allergies Allergies Coded Allergies Type Severity Reaction Last Updated Verified No Known Drug Allergies 05/16/14 No Physical Exam Physical Exam Constitutional: Mild distress, cachectic, non-toxic appearance. [] HENT: Normocephalic, old contusion right preorbital area, bilateral external ears normal, oropharynx moist, no oral exudates, nose normal. [] Eyes: PERRLA, EOMI, conjunctiva normal, no discharge. [] Neck: Normal range of motion, no tenderness, supple, no stridor. [] Cardiovascular:Heart rate regular rhythm, no murmur [] Lungs & Thorax: Audible rhonchi and wheezing with mild respiratory distress Abdomen: Bowel sounds normal, soft, no tenderness, no masses, no pulsatile masses. [] Skin: Warm, dry, no erythema, no rash. [] Back: No tenderness, no CVA tenderness. [] Extremities: No tenderness, no cyanosis, no clubbing, ROM intact, no edema. [] Neurologic: Alert and oriented X 2, normal motor function, normal sensory function, no focal deficits noted. [] EKG EKG EKG interpreted by me. EKG at 1450 showed normal sinus rhythm at rate of 71, low QRS voltage, Q waves in anteroseptal leads, inverted T in V4 to V6, no acute ST and T-wave abnormalities Radiology/Procedures Radiology/Procedures [] [place] [address] IMAGING REPORT Signed PATIENT: CAROLINE CARTER ACCOUNT: [id number] : 1930 LOCATION: ER AGE: 87 SEX: F EXAM STATUS: REG ER ORD. PHYSICIAN: PAULA SPRAGUE MD REASON: shortness of breath PROCEDURE: PORTABLE CHEST 1V Exam: AP portable chest History: Shortness of breath, crackles, lung cancer. Comparison: July 13, 2017. Findings: Cardiac silhouette appears within normal limits for size. Median sternotomy wires are present. Aortic atherosclerosis is noted. Left upper lung mass is without gross change. Left mastectomy and axillary lymphadenectomy changes are seen. No new pulmonary abnormality is identified. Impression: 1. Left lung mass.. No acute airspace disease is identified. Electronically signed by: David Benjamin MD (09/11/2017 3:16 PM) [facility] DICTATED AND SIGNED BY: DAVID BENJAMIN MD DATE: 09/11/17 4522 CC: MINI CHAPMAN APRN; PAULA SPRAGUE MD ~ Course & Med Decision Making Course & Med Decision Making Pertinent Labs and Imaging studies reviewed. (See chart for details) Evaluation of patient in ER showed 87-year-old female patient with history of metastatic lung cancer brought in to ER because of shortness of breath that started today. She had audible wheezing at arrival to ER because O2 sat of 97% at room air and felt better with nebulizer treatment. She had stable vital signs without hypotension or tachycardia. Patient had lactic acid of 2.1 that looked related to her chronic lung cancer and hypoxia. Patient did not have leukocytosis. Patient refused to have more evaluation in ER and wants to go home. Plan to give prescription for a course of antibiotic and instruction to use home oxygen. She has chronic elevation of BNP but does not take diuretic. She also has chronic renal failure Dragon Disclaimer Dragon Disclaimer This electronic medical record was generated, in whole or in part, using a voice recognition dictation system. Departure Departure: Impression: Primary Impression: Shortness of breath Additional Impressions: Lung cancer COPD (chronic obstructive pulmonary disease) Congestive heart failure Chronic renal insufficiency Hyperglycemia Uncontrolled diabetes mellitus Noncompliance Facial contusion Disposition: 07 AGAINST MEDICAL ADVICE Condition: IMPROVED Referrals: MINI CHAPMAN APRN (PCP) Patient Instructions: Chronic Obstructive Pulmonary Disease, Shortness of Breath Additional Instructions: Used your home oxygen Follow-up with your primary care physician in 3-5 days Return to ER if not getting better Scripts Methylprednisolone (MEDROL) 4 Mg Tab.ds.pk 1 PKG PO UD, #1 PKG Prov: PAULA SPRAGUE MD 09/11/17 Azithromycin (ZITHROMAX) 250 Mg Tablet 1 PKG PO UD, #1 PKG Prov: PAULA SPRAGUE MD 09/11/17 Problem Qualifiers PAULA SPRAGUE MD September 11, 2017 15:04
[2017-09-11] MEDS ORDERED: IPRATRPIUM/ALBUTEROL 0.5/2.5MG 3 ML NEBU. NEB ONE (15:20)
--- NOTE | 2017-09-11 15:20 | RAD ---
Exam: AP portable chest History: Shortness of breath, crackles, lung cancer. Comparison: July 13, 2017. Findings: Cardiac silhouette appears within normal limits for size. Median sternotomy wires are present. Aortic atherosclerosis is noted. Left upper lung mass is without gross change. Left mastectomy and axillary lymphadenectomy changes are seen. No new pulmonary abnormality is identified. Impression: 1. Left lung mass.. No acute airspace disease is identified. Electronically signed by: David Thao MD (09/11/2017 3:16 PM) [place] [id number]
[2017-09-11 15:22] LABS: BASO # 0.1 x10^3/uL (0.0-0.2); BASO % 1 % (0-3); EOS # 0.7 x10^3/uL (0.0-0.7); EOS % 8 % (0-3); HEMATOCRIT 30.2 % (36.0-47.0); HEMOGLOBIN 10.2 g/dL (12.0-15.5); LYMPH # 1.7 x10^3/uL (1.0-4.8); LYMPH % 20 % (24-48); MEAN CORPUSCULAR HEMOGLOBIN 31 pg (25-35); MEAN CORPUSCULAR HGB CONC 34 g/dL (31-37); MEAN CORPUSCULAR VOLUME 93 fL (79-100); MONO # 0.7 x10^3/uL (0.0-1.1); MONO % 8 % (0-9); NEUT # 5.4 x10^3uL (1.8-7.7); NEUT % 63 % (31-73); PLATELET COUNT 263 x10^3/uL (140-400); RED BLOOD COUNT 3.25 x10^6/uL (3.50-5.40); RED CELL DISTRIBUTION WIDTH 14.4 % (11.5-14.5); WHITE BLOOD COUNT 8.6 x10^3/uL (4.0-11.0)
[2017-09-11 15:47] LABS: ALBUMIN 2.6 g/dL (3.4-5.0); ALBUMIN/GLOBULIN RATIO 0.5 (1.0-1.7); ALK PHOS 109 U/L (46-116); ALT (SGPT) 17 U/L (14-59); ANION GAP 7 (6-14); AST (SGOT) 17 U/L (15-37); BLOOD UREA NITROGEN 39 mg/dL (7-20); BUN/CREATININE RATIO 28 (6-20); CALCIUM 9.6 mg/dL (8.5-10.1); CARBON DIOXIDE 28 mmol/L (21-32); CHLORIDE 99 mmol/L (98-107); CREATININE 1.4 mg/dL (0.6-1.0); GFR 35.7; GLUCOSE 213 mg/dL (70-99); POTASSIUM 4.5 mmol/L (3.5-5.1); SODIUM 134 mmol/L (136-145); TOTAL BILIRUBIN 0.2 mg/dL (0.2-1.0); TOTAL PROTEIN 7.6 g/dL (6.4-8.2)
--- NOTE | 2017-09-11 15:48 | EKG ---
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
[2017-09-11] MEDS ORDERED: METH4TAB2 PO (16:48)
[2017-09-11] MEDS ORDERED: AZIT250T PO (16:48)
[2017-09-11] MEDS ORDERED: methylPREDNISolone SOD SUCC PF 125 MG/2 ML VIAL. ONE (16:58)
[2017-09-11] MEDS ORDERED: methylPREDNISolone SOD SUCC PF 125 MG/2 ML VIAL. IV ONE (17:15)
[2017-09-11] MEDS ORDERED: methylPREDNISolone SOD SUCC PF 125 MG/2 ML VIAL. IM ONE (17:20)
[2017-09-11 17:43] LABS: BILIRUBIN,URINE NEG (NEG); CLARITY,URINE CLOUDY; COLOR,URINE YELLOW; GLUCOSE,URINE NEG (NEG)
[2017-09-11 17:44] LABS: BACTERIA,URINE MANY /HPF (0-FEW); NITRITE,URINE POS (NEG); SQUAMOUS EPITHELIAL CELL,UR FEW /LPF; UROBILINOGEN,URINE 0.2 mg/dL (0.2 mg/dL)
[2017-09-11 17:45] LABS: HYALINE CASTS, URINE MOD /HPF
== END 2017-09-11 17:03 | disposition left against medical advice (07) ==
LOC: ER 14:37
DX: J44.9 Chronic obstructive pulmonary disease, unspecified (principal); C34.90 Malignant neoplasm of unspecified part of unspecified bronchus or lung; E11.22 Type 2 diabetes mellitus with diabetic chronic kidney disease; I13.0 Hypertensive heart and chronic kidney disease with heart failure and stage 1 through stage 4 chronic kidney disease, or unspecified chronic kidney disease; N18.9 Chronic kidney disease, unspecified; I50.9 Heart failure, unspecified; E11.65 Type 2 diabetes mellitus with hyperglycemia; S00.83XA Contusion of other part of head, initial encounter; I25.810 Atherosclerosis of coronary artery bypass graft(s) without angina pectoris; Z91.19 Patient's noncompliance with other medical treatment and regimen; Z86.73 Personal history of transient ischemic attack (TIA), and cerebral infarction without residual deficits; Z87.891 Personal history of nicotine dependence; X58.XXXA Exposure to other specified factors, initial encounter; Y93.89 Activity, other specified; Y99.8 Other external cause status; Y92.89 Other specified places as the place of occurrence of the external cause
CPT/HCPCS: 36415; 71045; 80053; 81001; 82553; 83605; 83880; 84484; 85025; 85610; 87086; 93005; 94640; 96372; 99285; J2930; J7620

== ENCOUNTER 2017-12-25 11:14 | Inpatient (IN) | payer MEDICARE, OTHER ==
[~2017-12-25] VITALS: Ht 149.9 cm; Wt 39.5 kg
[~2017-12-25 11:14] MED LIST changes: +FENT1PAT90 TP; +METH4TAB2 PO; +OXYC5TAB95 PO
[2017-12-25 11:44] VITALS: BP 96/54
[2017-12-25] MEDS ORDERED: ONDANSETRON ODT 4 MG TAB.RAPDIS PO PRN (11:45)
[2017-12-25] MEDS: fentaNYL 25MCG/HR 1 PATCH PATCH TD SCH (12:44)
[2017-12-25] MEDS: DOCUSATE SODIUM 100 MG CAPSULE PO SCH (20:46)
[2017-12-25] MEDS: SIMVASTATIN 20 MG TABLET PO SCH (20:46)
[2017-12-26 05:48] VITALS: BP 111/60
[2017-12-26] MEDS: ASPIRIN 81 MG TAB.CHEW PO SCH (08:47)
[2017-12-26] MEDS: DOCUSATE SODIUM 100 MG CAPSULE PO SCH ×2 (08:47→20:57)
[2017-12-26] MEDS: DULoxetine HCL 30 MG CAPSULE.DR PO SCH (08:47)
[2017-12-26] MEDS: FAMOTIDINE 20 MG TABLET PO SCH (08:47)
[2017-12-26] MEDS: CALCIUM CARB/VIT D3 500/200 TABLET PO SCH (08:47)
[2017-12-26] MEDS: MULTIVITAMIN with MINERAL TABLET. PO SCH (08:47)
[2017-12-26 14:40] VITALS: BP 106/56
[2017-12-26] MEDS ORDERED: MORPHINE SULFATE 20 MG/ML CONC SOLUTION. SL PRN (15:45)
[2017-12-26 18:59] VITALS: BP 126/57
[2017-12-26] MEDS: SIMVASTATIN 20 MG TABLET PO SCH (20:57)
[2017-12-27 05:56] VITALS: BP 115/61
--- NOTE | 2017-12-27 07:36 | PDOC1 ---
History of Present Illness Reason for Visit: respite care History of Present Illness 87-year-old female on hospice status with metastatic lung cancer admitted for respite care. Her spouse cares for typically however nursing staff reveals that he simply needed a break for a few days. She was admitted to the hospital so he could have a rest as she cannot care for herself. I find the patient sitting up asleep in her hospital bed, it appears that she fell asleep while eating. She has food in her mouth while she is sleeping and she does not for me. Her nurse reveals that she's been sleeping like this all day and that it's been very difficult to get her to eat even a few bites of a biscuit. Her vital signs have remained stable and nursing reveals that when she is awake she hasn't had any complaints. Her past medical history is significant for metastatic lung cancer first diagnosed in 2017, coronary artery disease with stent placement, hypertension, hyperlipidemia, diabetes, multiple TIAs, chronic back and knee pain Social history: Lives at home with her spouse, smokes cigarettes up until 10 years ago Allergies: Coded Allergies: No Known Drug Allergies (Unverified , 05/16/14) Review of Systems Review Of Systems Accurate review of systems unobtainable as the patient will not wake up Medications Current Medications Calcium/Vitamin D (Oscal D 500mg/ 200uts) 1 tab DAILY PO Last administered on at 08:47; Start 12/26/17 at 09:00 Aspirin (Children'S Aspirin) 81 mg DAILYWBKFT PO Last administered on at 08:47; Start 12/26/17 at 08:00 Docusate Sodium (Colace) 100 mg BID PO Last administered on 12/26/17at 20:57; Start 12/25/17 at 21:00 Duloxetine HCl (Cymbalta) 30 mg DAILY PO Last administered on 12/26/17at 08:47; Start 12/26/17 at 09:00 Famotidine (Pepcid) 20 mg DAILY PO Last administered on 12/26/17at 08:47; Start 12/26/17 at 09:00 Fentanyl (Duragesic 25mcg/ Hr) 1 patch Q3DAYS TD ; Start 12/28/17 at 09:00; Stop 12/28/17 at 09:00; Status DC Multivitamins/ Calcium (Thera-M Plus) 1 tab DAILY PO Last administered on at 08:47; Start 12/26/17 at 09:00 Simvastatin (Zocor) 20 mg HS PO Last administered on 12/26/17at 20:57; Start at 21:00 Ondansetron HCl (Zofran Odt) 4 mg PRN Q8HRS PRN PO NAUSEA/VOMITING; Start 12/25 at 11:45 Fentanyl (Duragesic 25mcg/ Hr) 1 patch Q3DAYS TD Last administered on at 12:44; Start 12/25/17 at 12:30 Morphine Sulfate (Roxanol Conc) 20 mg PRN Q3HRS PRN SL PAIN Last administered on 12/26/17at 15:52; Start 12/26/17 at 15:45 Active Scripts Active Stool Softener (Docusate Sodium) 100 Mg Tablet 100 Mg PO BID 30 Days Simvastatin 20 Mg Tablet 1 Tab PO QHS Daily Multiple Vitamin (Multivitamin) 1 Each Tablet 1 Each PO DAILY 30 Days Famotidine 20 Mg Tablet 1 Tab PO DAILY Calcium 500 + Vit D 200 Tablet (Calcium Carbonate/Vitamin D3) 1 Each Tablet 1 Each PO DAILY 30 Days Aspirin 81 Mg Tab.chew 81 Mg PO DAILY 30 Days Ondansetron Odt (Ondansetron) 4 Mg Tab.rapdis 4 Mg PO PRN Q4HRS PRN Morphine Sulfate 100 Mg/5 Ml Solution 20 Mg SL PRN Q3HRS PRN 30 Days Reported DURAGESIC 25mcg/hr (Fentanyl) 1 Each Patch.td72 1 Patch TP Q3DAYS Duloxetine Hcl 30 Mg Capsule.dr 30 Mg PO DAILY Exam Vital Signs Vital Signs Date Time Temp Pulse Resp B/P (MAP) Pulse Ox O2 Delivery O2 Flow Rate FiO2 12/27/17 05:56 97.7 71 18 115/61 (79) 93 Room Air General Appearance: Other (sleeping, arouses to stimuli but will not wake) HEENT: Atraumatic, PERRLA, Mucous membr. moist/pink (chewed up biscuit in her mouth) Respiratory: Other (coarse breath sounds bilaterally with good air movement) Heart: Regular rate, No murmurs Abdominal: Soft (nondistended, bowel sounds present but diminished no palpable masses) Extremities: No clubbing, No cyanosis, No edema Skin: No rashes, No breakdown Neuro: Other (Rouses to stimuli doesn't fully awaken, no cooperation for full neurologic testing) Assessment/Plan Assessment/Plan Respite care Hospice status Metastatic lung cancer We'll check basic labs and continue to monitor patient's status COURSE Allergies Coded Allergies Type Severity Reaction Last Updated Verified No Known Drug Allergies 05/16/14 No Current Medications Medications (Trade) Dose Ordered Sig/Aquiles Route PRN Reason Start Time Stop Time Status Last Admin Dose Admin Calcium/Vitamin D (Oscal D 500mg/ 200uts) 1 tab DAILY PO 12/26/17 09:00 12/26/17 08:47 Aspirin (Children'S Aspirin) 81 mg DAILYWBKFT PO 12/26/17 08:00 12/26/17 08:47 Duloxetine HCl (Cymbalta) 30 mg DAILY PO 12/26/17 09:00 12/26/17 08:47 Famotidine (Pepcid) 20 mg DAILY PO 12/26/17 09:00 12/26/17 08:47 Fentanyl (Duragesic 25mcg/ Hr) 1 patch Q3DAYS TD 12/28/17 09:00 12/28/17 09:00 DC Multivitamins/ Calcium (Thera-M Plus) 1 tab DAILY PO 12/26/17 09:00 12/26/17 08:47 Morphine Sulfate (Roxanol Conc) 20 mg PRN Q3HRS PRN SL PAIN 12/26/17 15:45 12/26/17 15:52 I & O 12/27/17 00:00 Intake Total 770 ml Balance 770 ml Orders Procedure Category Date Status Time Admit Orders ADT 12/26/17 Transmitted 07:53 Morphine Sulfate PHA 12/26/17 In Process (Roxanol Conc) 15:45 Vital Signs Date Time Temp Pulse Resp B/P (MAP) Pulse Ox O2 Delivery O2 Flow Rate FiO2 12/27/17 05:56 97.7 71 18 115/61 (79) 93 Room Air JEREMIAH BERMAN DO Dec 27, 2017 07:36
[2017-12-27] MEDS: DULoxetine HCL 30 MG CAPSULE.DR PO SCH (10:10)
[2017-12-27] MEDS: ASPIRIN 81 MG TAB.CHEW PO SCH (10:10)
[2017-12-27] MEDS: CALCIUM CARB/VIT D3 500/200 TABLET PO SCH (10:10)
[2017-12-27] MEDS: DOCUSATE SODIUM 100 MG CAPSULE PO SCH ×2 (10:11→20:01)
[2017-12-27] MEDS: MULTIVITAMIN with MINERAL TABLET. PO SCH (10:11)
[2017-12-27] MEDS: FAMOTIDINE 20 MG TABLET PO SCH (10:11)
[2017-12-27 15:21] VITALS: BP 144/68
[2017-12-27 18:55] VITALS: BP 140/59
[2017-12-27] MEDS: SIMVASTATIN 20 MG TABLET PO SCH (20:01)
[2017-12-28 05:52] VITALS: BP 131/67
[2017-12-28 06:13] LABS: BASO # 0.1 x10^3/uL (0.0-0.2); BASO % 1 % (0-3); EOS # 0.4 x10^3/uL (0.0-0.7); EOS % 4 % (0-3); HEMATOCRIT 31.2 % (36.0-47.0); HEMOGLOBIN 10.3 g/dL (12.0-15.5); LYMPH # 1.6 x10^3/uL (1.0-4.8); LYMPH % 16 % (24-48); MEAN CORPUSCULAR HEMOGLOBIN 30 pg (25-35); MEAN CORPUSCULAR HGB CONC 33 g/dL (31-37); MEAN CORPUSCULAR VOLUME 91 fL (79-100); MONO # 0.8 x10^3/uL (0.0-1.1); MONO % 8 % (0-9); NEUT % 71 % (31-73); PLATELET COUNT 287 x10^3/uL (140-400); RED BLOOD COUNT 3.43 x10^6/uL (3.50-5.40); RED CELL DISTRIBUTION WIDTH 14.6 % (11.5-14.5); WHITE BLOOD COUNT 9.9 x10^3/uL (4.0-11.0)
[2017-12-28 06:17] LABS: CALCIUM 9.1 mg/dL (8.5-10.1); CREATININE 1.3 mg/dL (0.6-1.0); GFR 38.9; POTASSIUM 5.1 mmol/L (3.5-5.1)
[2017-12-28] MEDS: FAMOTIDINE 20 MG TABLET PO SCH (08:10)
[2017-12-28] MEDS: ASPIRIN 81 MG TAB.CHEW PO SCH (08:10)
[2017-12-28] MEDS: DOCUSATE SODIUM 100 MG CAPSULE PO SCH ×2 (08:10→20:25)
[2017-12-28] MEDS: CALCIUM CARB/VIT D3 500/200 TABLET PO SCH (08:10)
[2017-12-28] MEDS: DULoxetine HCL 30 MG CAPSULE.DR PO SCH (08:10)
[2017-12-28] MEDS: MULTIVITAMIN with MINERAL TABLET. PO SCH (08:11)
[2017-12-28] MEDS: fentaNYL 25MCG/HR 1 PATCH PATCH TD SCH (08:32)
[2017-12-28] MEDS ORDERED: fentaNYL 25MCG/HR 1 PATCH PATCH TD SCH (09:00)
[2017-12-28] MEDS ORDERED: IV NORMAL SALINE 1,000ML 1,000 ML IV SCH (11:57)
[2017-12-28 14:13] VITALS: BP 120/62
[2017-12-28] MEDS: SIMVASTATIN 20 MG TABLET PO SCH (20:24)
[2017-12-29 06:01] VITALS: BP 133/73
[2017-12-29] MEDS: DULoxetine HCL 30 MG CAPSULE.DR PO SCH (08:42)
[2017-12-29] MEDS: DOCUSATE SODIUM 100 MG CAPSULE PO SCH (08:42)
[2017-12-29] MEDS: MULTIVITAMIN with MINERAL TABLET. PO SCH (08:42)
[2017-12-29] MEDS: ASPIRIN 81 MG TAB.CHEW PO SCH (08:43)
[2017-12-29] MEDS: CALCIUM CARB/VIT D3 500/200 TABLET PO SCH (08:43)
[2017-12-29] MEDS: FAMOTIDINE 20 MG TABLET PO SCH (08:43)
== END 2017-12-29 09:30 | disposition hospice, home (50) | DRG 182 ==
LOC: LND 11:14 → 1 SOUTH 12-26 12:02
PROVIDERS: ADMIT Neuromusculoskeletal Medicine & OMM; ATTEND Neuromusculoskeletal Medicine & OMM
DX: C34.90 Malignant neoplasm of unspecified part of unspecified bronchus or lung (principal); Z75.5 Holiday relief care; G89.29 Other chronic pain; E11.9 Type 2 diabetes mellitus without complications; E78.5 Hyperlipidemia, unspecified; I10 Essential (primary) hypertension; I25.10 Atherosclerotic heart disease of native coronary artery without angina pectoris; Z86.73 Personal history of transient ischemic attack (TIA), and cerebral infarction without residual deficits; Z87.891 Personal history of nicotine dependence; Z95.5 Presence of coronary angioplasty implant and graft
CPT/HCPCS: 36415; 80048; 85025; Q5005

== ENCOUNTER 2018-02-13 10:25 | Inpatient (IN) | payer OTHER ==
[~2018-02-13] VITALS: Ht 142.2 cm; Wt 37.7 kg
[2018-02-13 11:25] VITALS: BP 113/53
[2018-02-13] MEDS ORDERED: ASPI81TA50 PO (11:44)
[2018-02-13] MEDS ORDERED: BISA10SU2 RC (11:44)
[2018-02-13] MEDS ORDERED: SIMV20TA PO (11:44)
[2018-02-13] MEDS ORDERED: ACET325T9 PO (11:44)
[2018-02-13] MEDS ORDERED: FAMO-63 PO (11:44)
[2018-02-13] MEDS ORDERED: DULO30CA2 PO (11:44)
[2018-02-13] MEDS ORDERED: MORP10SU PO (11:44)
[2018-02-13] MEDS ORDERED: MULT-245 PO (11:44)
[2018-02-13] MEDS ORDERED: ONDA4TAB7 PO (11:44)
[2018-02-13] MEDS ORDERED: SENN-82 PO (11:44)
[2018-02-13] MEDS ORDERED: CALC-98 PO (11:44)
[2018-02-13] MEDS ORDERED: FENT1PAT90 TP (11:44)
[2018-02-13] MEDS ORDERED: CARV25TA PO (11:44)
[2018-02-13] MEDS ORDERED: SENNOSIDES/DOCUSATE 8.6/50MG TABLET. PO PRN (11:45)
[2018-02-13] MEDS ORDERED: ONDANSETRON 4MG ODT 4TABLET STARTPACK. PO PRN (11:45)
[2018-02-13] MEDS ORDERED: MORPHINE SULFATE 10 MG PO PRN (11:45)
[2018-02-13] MEDS ORDERED: ACETAMINOPHEN 325 MG TABLET PO PRN (11:45)
[2018-02-13] MEDS ORDERED: BISACODYL 10 MG SUPP.RECT PR PRN (12:15)
[2018-02-13] MEDS ORDERED: MORPHINE SULFATE 20 MG/ML CONC SOLUTION. SL PRN (12:30)
[2018-02-13] MEDS: CARVEDILOL 12.5 MG TABLET PO SCH (17:30)
[2018-02-13] MEDS: CALCIUM CARB/VIT D3 500/200 TABLET PO SCH (17:30)
[2018-02-13 18:21] VITALS: BP 104/62
[2018-02-13] MEDS ORDERED: fentaNYL 25MCG/HR 1 PATCH PATCH TD SCH (20:00)
[2018-02-13] MEDS ORDERED: SIMVASTATIN PO SCH (21:00)
[2018-02-13] MEDS: DULoxetine HCL 30 MG CAPSULE.DR PO SCH (21:09)
[2018-02-13] MEDS: SIMVASTATIN 20 MG TABLET PO SCH (21:09)
[2018-02-13] MEDS: FAMOTIDINE 20 MG TABLET PO SCH (21:09)
[2018-02-13] MEDS: fentaNYL 25MCG/HR 1 PATCH PATCH TD SCH (21:09)
[2018-02-13] MEDS: DOCUSATE SODIUM 100 MG CAPSULE PO SCH (21:09)
[2018-02-14 05:56] VITALS: BP 106/62
[2018-02-14 06:04] VITALS: BP 145/79
[2018-02-14] MEDS: ASPIRIN 81 MG TAB.CHEW PO SCH (08:32)
[2018-02-14] MEDS: CALCIUM CARB/VIT D3 500/200 TABLET PO SCH ×2 (08:35→18:44)
[2018-02-14] MEDS: DOCUSATE SODIUM 100 MG CAPSULE PO SCH ×2 (08:35→20:07)
[2018-02-14] MEDS: MULTIVITAMIN with MINERAL TABLET. PO SCH (08:37)
[2018-02-14] MEDS ORDERED: MULTIVITAMIN PO SCH (09:00)
[2018-02-14] MEDS ORDERED: NON FORMULARY ITEM (Famotidine 1 TAB) PO SCH (09:00)
[2018-02-14] MEDS ORDERED: ASPIRIN PO SCH (09:00)
[2018-02-14] MEDS ORDERED: CALCIUM CARB/VIT D3 500/200 TABLET PO SCH (09:00)
[2018-02-14] MEDS ORDERED: DULOXETINE HCL 30 MG PO SCH (09:00)
[2018-02-14 10:52] VITALS: BP 107/56
[2018-02-14] MEDS: CARVEDILOL 12.5 MG TABLET PO SCH ×2 (10:52→18:45)
[2018-02-14 18:11] VITALS: BP 120/67
[2018-02-14] MEDS: FAMOTIDINE 20 MG TABLET PO SCH (20:07)
[2018-02-14] MEDS: SIMVASTATIN 20 MG TABLET PO SCH (20:07)
[2018-02-14] MEDS: DULoxetine HCL 30 MG CAPSULE.DR PO SCH (20:08)
[2018-02-15 06:06] VITALS: BP 101/54
[2018-02-15] MEDS: DOCUSATE SODIUM 100 MG CAPSULE PO SCH ×2 (12:08→19:22)
[2018-02-15] MEDS: CARVEDILOL 12.5 MG TABLET PO SCH ×2 (12:08→19:22)
[2018-02-15] MEDS: CALCIUM CARB/VIT D3 500/200 TABLET PO SCH ×2 (12:08→17:00)
[2018-02-15] MEDS: MULTIVITAMIN with MINERAL TABLET. PO SCH (12:08)
[2018-02-15] MEDS: ASPIRIN 81 MG TAB.CHEW PO SCH (12:08)
[2018-02-15 17:55] VITALS: BP 108/58
[2018-02-15] MEDS: DULoxetine HCL 30 MG CAPSULE.DR PO SCH (19:22)
[2018-02-15] MEDS: SIMVASTATIN 20 MG TABLET PO SCH (19:22)
[2018-02-15] MEDS: FAMOTIDINE 20 MG TABLET PO SCH (19:22)
[2018-02-16 06:11] VITALS: BP 101/54
[2018-02-16] MEDS: CARVEDILOL 12.5 MG TABLET PO SCH ×3 (08:00→17:00)
[2018-02-16] MEDS ORDERED: FENTANYL TP SCH (09:00)
[2018-02-16] MEDS: CALCIUM CARB/VIT D3 500/200 TABLET PO SCH ×2 (12:29→18:39)
[2018-02-16] MEDS: ONDANSETRON ODT 4 MG TAB.RAPDIS PO PRN (12:30)
[2018-02-16] MEDS: ASPIRIN 81 MG TAB.CHEW PO SCH (12:30)
[2018-02-16] MEDS: DOCUSATE SODIUM 100 MG CAPSULE PO SCH ×2 (12:30→20:02)
[2018-02-16] MEDS: MULTIVITAMIN with MINERAL TABLET. PO SCH (12:30)
[2018-02-16 18:39] VITALS: BP 95/52
[2018-02-16] MEDS: SIMVASTATIN 20 MG TABLET PO SCH (20:02)
[2018-02-16] MEDS: fentaNYL 25MCG/HR 1 PATCH PATCH TD SCH (20:02)
[2018-02-16] MEDS: FAMOTIDINE 20 MG TABLET PO SCH (20:02)
[2018-02-16] MEDS: DULoxetine HCL 30 MG CAPSULE.DR PO SCH (20:02)
[2018-02-17 05:45] VITALS: BP 123/50
[2018-02-17] MEDS: CARVEDILOL 12.5 MG TABLET PO SCH ×2 (08:00→17:40)
[2018-02-17] MEDS: ASPIRIN 81 MG TAB.CHEW PO SCH (14:24)
[2018-02-17] MEDS: ONDANSETRON ODT 4 MG TAB.RAPDIS PO PRN (14:24)
[2018-02-17] MEDS: MULTIVITAMIN with MINERAL TABLET. PO SCH (14:25)
[2018-02-17] MEDS: CALCIUM CARB/VIT D3 500/200 TABLET PO SCH ×2 (14:25→17:38)
[2018-02-17] MEDS: DOCUSATE SODIUM 100 MG CAPSULE PO SCH ×2 (14:25→21:10)
[2018-02-17 17:51] VITALS: BP 117/62
[2018-02-17] MEDS: SIMVASTATIN 20 MG TABLET PO SCH (21:10)
[2018-02-17] MEDS: FAMOTIDINE 20 MG TABLET PO SCH (21:10)
[2018-02-17] MEDS: DULoxetine HCL 30 MG CAPSULE.DR PO SCH (21:10)
[2018-02-18 06:01] VITALS: BP 131/56
[2018-02-18 08:07] VITALS: BP 131/56
[2018-02-18] MEDS: ASPIRIN 81 MG TAB.CHEW PO SCH (08:07)
[2018-02-18] MEDS: CARVEDILOL 12.5 MG TABLET PO SCH (08:07)
[2018-02-18] MEDS: MULTIVITAMIN with MINERAL TABLET. PO SCH (08:08)
[2018-02-18] MEDS: DOCUSATE SODIUM 100 MG CAPSULE PO SCH (08:08)
[2018-02-18] MEDS: CALCIUM CARB/VIT D3 500/200 TABLET PO SCH (08:08)
== END 2018-02-18 10:45 | disposition hospice, home (50) | DRG 182 ==
LOC: LND 10:25
PROVIDERS: ADMIT Internal Medicine; ATTEND Internal Medicine
DX: C34.90 Malignant neoplasm of unspecified part of unspecified bronchus or lung (principal); I27.20 Pulmonary hypertension, unspecified; I25.10 Atherosclerotic heart disease of native coronary artery without angina pectoris; Z66 Do not resuscitate
CPT/HCPCS: Q0162

== ENCOUNTER → 2018-03-08 | Outpatient (CLI) | payer MEDICARE, OTHER ==
[2018-02-18 08:07] VITALS: BP 131/56
[~2018-03-08] MED LIST changes: +ACET325T9 PO; +ASPI81TA50 PO; +BISA10SU2 RC; +CARV25TA PO; +FAMO-63 PO; +MORP10SU PO; +MULT-245 PO; +ONDA4TAB7 PO; +SENN-82 PO; +SIMV20TA PO
--- NOTE | 2018-03-08 16:17 | RAD ---
PA and lateral chest x-ray compared to portable chest dated September 11, 2017 for cough. FINDINGS: The large left apical mass has grown and is more confluent than on the prior study. There is subtle elevation of the left hemidiaphragm relative the right as well, which may imply at least partial left upper lobe atelectasis. This could be better evaluated with CT scan if clinically warranted. Extensive postsurgical changes are again noted. No new lung parenchymal abnormalities are seen. IMPRESSION: 1. Increased size and confluence of the left apical lung mass, perhaps augmented by partial left upper lobe atelectasis. No new lung masses. Electronically signed by: Jose Painter MD (03/08/2018 4:14 PM) [id number]
== END | disposition home or self-care (01) ==
LOC: RAD 10:18
PROVIDERS: ATTEND Physician Assistant Medical
DX: J98.6 Disorders of diaphragm (principal); Z98.890 Other specified postprocedural states; Z85.118 Personal history of other malignant neoplasm of bronchus and lung
CPT/HCPCS: 71046

== ENCOUNTER 2018-04-06 17:00 | Inpatient (IN) | payer MEDICARE, OTHER ==
[~2018-04-06] VITALS: Ht 144.8 cm; Wt 40.9 kg
[~2018-04-06 17:00] MED LIST changes: -CARV12.52 PO; +CARV12.547 PO; -HYDR-2762 PO; +HYDR-2765 PO; +OXYC5TAB4 PO; -OXYC5TAB95 PO
--- NOTE | 2018-04-06 17:12 | EKG ---
[address] [address] Test Date: 2018-04-06 Test Time: 17:07:08 Pat Name: CAROLINE CARTER Department: Room: Gender: F Storage Consultant: : [id number] Requested By: OSIEL CASTILLO Order Number: [id number] Reading MD: Alfonzo Ray MD Measurements Intervals [place] Rate: 102 P: 66 VT: 146 QRS: 46 QRSD: 76 T: 79 QT: 354 QTc: 466 Interpretive Statements SINUS TACHYCARDIA LVH WITH REPOLARIZATION ABNORMALITY ABNORMAL ECG Electronically Signed On 04-08-2018 8:38:45 [employer] by Alfonzo Ray MD
[2018-04-06] MEDS ORDERED: IOHEXOL 300 MG/ML 75 ML VIAL. IV ONE (17:30)
[2018-04-06 17:33] LABS: BASO % 0 % (0-3); EOS # 0.4 x10^3/uL (0.0-0.7); EOS % 4 % (0-3); HEMATOCRIT 31.1 % (36.0-47.0); HEMOGLOBIN 10.2 g/dL (12.0-15.5); LYMPH % 23 % (24-48); MEAN CORPUSCULAR HEMOGLOBIN 30 pg (25-35); MEAN CORPUSCULAR HGB CONC 33 g/dL (31-37); MEAN CORPUSCULAR VOLUME 92 fL (79-100); MONO # 0.7 x10^3/uL (0.0-1.1); MONO % 8 % (0-9); NEUT # 5.8 x10^3uL (1.8-7.7); NEUT % 65 % (31-73); PLATELET COUNT 336 x10^3/uL (140-400); RED BLOOD COUNT 3.39 x10^6/uL (3.50-5.40); RED CELL DISTRIBUTION WIDTH 15.6 % (11.5-14.5)
--- NOTE | 2018-04-06 17:35 | PHYS DOC ---
Past History Past Medical History: Anemia, Arthritis, Cancer, Depression, High Cholesterol, Heart Disease, Hypothyroid, MT, TIA, Other Additional Past Medical Histor: end-stage lung cancer Past Surgical History: Cancer Surgery, Coronary Bypass Surgery, Other Smoking: Cigarettes, Quit Greater Than 1 Year Alcohol Use: None Drug Use: None Adult General Chief Complaint Chief Complaint: ABDOMINAL PAIN HPI HPI 87-year-old female presents with abdominal pain and chest pain since yesterday. Patient states that feels like central abdominal pain that radiates up into her chest. She is unsure when she last bowel movement. She says that she is urinating okay. She has not had a fever or chills at home. The patient is not a great historian. She denies diaphoresis or shortness of breath. She tells me that her stomach might hurt because "she is old." Review of Systems Review of Systems Constitutional: Denies fever or chills [] Eyes: Denies change in visual acuity, redness, or eye pain [] HENT: Denies nasal congestion or sore throat [] Respiratory: Denies cough or shortness of breath [] Cardiovascular: No additional information not addressed in HPI [] GI: Abdominal pain[] : Denies dysuria or hematuria [] Musculoskeletal: Denies back pain or joint pain [] Integument: Denies rash or skin lesions [] Neurologic: Denies headache, focal weakness or sensory changes [] Endocrine: Denies polyuria or polydipsia [] All other systems were reviewed and found to be within normal limits, except as documented in this note. Allergies Allergies Allergies Coded Allergies Type Severity Reaction Last Updated Verified No Known Drug Allergies 05/16/14 No Physical Exam Physical Exam Constitutional: Well developed, thin, no acute distress, non-toxic appearance. [ ] HENT: Normocephalic, atraumatic, bilateral external ears normal, oropharynx moist, no oral exudates, nose normal. [] Eyes: PERRLA, EOMI, conjunctiva normal, no discharge. [] Neck: Normal range of motion, no tenderness, supple, no stridor. [] Cardiovascular: Tachycardia, rate 102, no murmur [] Lungs & Thorax: Bilateral breath sounds clear to auscultation [] Abdomen: Bowel sounds normal, soft, no masses, no pulsatile masses. Periumbilical abdominal pain mild[] Skin: Warm, dry, no erythema, no rash. [] Back: No tenderness, no CVA tenderness. [] Extremities: No tenderness, no cyanosis, no clubbing, ROM intact, no edema. [] Neurologic: Alert and oriented X 3, normal motor function, normal sensory function, no focal deficits noted. [] Psychologic: Affect normal, judgement normal, mood normal. [] EKG EKG Sinus tachycardia, rate 102, normal axis, ST elevation in V2, Q wave in V1.[] Radiology/Procedures Radiology/Procedures [] Course & Med Decision Making Course & Med Decision Making Pertinent Labs and Imaging studies reviewed. (See chart for details) The shows Q waves in V1 and [address] elevation in V2. The patient has an elevated troponin of 0.654. Review of her chart shows she has had elevations in the past. She had a troponin of over 4 in June of this year. She has also had normal troponin since that time. Her lactic acid is negative. CT scan is pending. I discussed the case with Dr. Dunaway and he has accepted the patient for admission. I am signing the patient out to Dr. Andrade at 1830 to follow-up on the labs and CT scan prior to her going to the floor. [] Dragon Disclaimer Dragon Disclaimer This electronic medical record was generated, in whole or in part, using a voice recognition dictation system. Departure Departure: Referrals: SANDHYA NAQVI (PCP) OSIEL CASTILLO DO Apr 06, 2018 17:34
[2018-04-06 18:58] LABS: ALBUMIN 2.6 g/dL (3.4-5.0); ALBUMIN/GLOBULIN RATIO 0.5 (1.0-1.7); CALCIUM 9.1 mg/dL (8.5-10.1); CREATININE 1.6 mg/dL (0.6-1.0); GFR 30.6; POTASSIUM 4.8 mmol/L (3.5-5.1); TOTAL BILIRUBIN 0.1 mg/dL (0.2-1.0); TOTAL PROTEIN 7.8 g/dL (6.4-8.2)
[2018-04-06] MEDS ORDERED: IOHEXOL 240 MG/ML 50ML VIAL. ONE (19:17)
[2018-04-06 21:00] VITALS: BP 129/73
--- NOTE | 2018-04-06 21:00 | RAD ---
CT abdomen and pelvis with oral contrast 04/06/2018 CLINICAL INDICATION: Abdominal pain, vomiting, lung carcinoma. COMPARISON: CT abdomen and pelvis 07/13/2017 TECHNIQUE: Multiple CT images of the abdomen and pelvis were obtained without intravenous contrast. Oral contrast was administered. *One or more of the following individualized dose reduction techniques were utilized for this examination: 1. Automated exposure control. 2. Adjustment of the mA and/or kV according to patient size. 3. Use of iterative reconstruction technique. FINDINGS: Stable 0.4 cm noncalcified nodule in the right lower lobe series 2/image 7 and 0.4 cm noncalcified pulmonary nodule in the left lower lobe series 2/image 5 is not included in the [id number] on prior examination. Heart size is normal. Evaluation of the solid abdominal pelvic viscera, lymphadenopathy and vasculature is limited in the absence of intravenous contrast. Unenhanced contours of the liver, spleen, adrenal glands and pancreas are grossly unremarkable. Cholecystectomy. Both kidneys present without hydronephrosis. IVC filter in similar position with the feet extending beyond the IVC wall level. Tortuous abdominal aorta with extensive aortoiliac calcified atheromatous disease. There is mild thickening of the lower esophagus to the GE junction. No bowel obstruction. Appendix is not discretely identified and may be absent. No abdominal free fluid. No pneumoperitoneum. There is a soft tissue density in the deep inguinal ring which likely represents an inguinal hernia repair. Urinary bladder is decompressed. Uterus grossly unremarkable. Stable multilevel lower thoracic and lumbar compression deformities with prior spinal augmentation T12-L3. Unchanged bony retropulsion at L1 resulting in moderate spinal canal narrowing. Unchanged bony retropulsion at L3 with posterior spinal decompression. Internal fixation of the right proximal femur. IMPRESSION: 1. No noncontrast CT evidence of acute abdominal or pelvic process. 2. Lower esophageal thickening, may be due to reflux esophagitis, though Moreno's and neoplasm can have a similar appearance. Clinical correlation is recommended. 3. Small bilateral lower lobe noncalcified pulmonary nodules, indeterminate. Follow-up CT chest is recommended to assess for stability. Electronically signed by: Óscar Campoverde MD (04/06/2018 8:57 PM) [facility]
--- NOTE | 2018-04-06 22:07 | RAD ---
Single view chest 04/06/2018 CLINICAL INDICATION: Chest pain. COMPARISON: Two-view chest 03/08/2018 FINDINGS: Prior median sternotomy and left axillary lymph node dissection. Large left upper lung mass. Stable scattered areas of pleural/parenchymal scarring throughout both lungs. No pleural effusion, pneumothorax or new focal consolidation. IMPRESSION: Persistent large left upper lung mass. Electronically signed by: Óscar Campoverde MD (04/06/2018 10:03 PM) [facility]
[2018-04-06] MEDS ORDERED: ONDANSETRON PF 4 MG/2 ML VIAL. IV PRN (22:45)
[2018-04-06] MEDS ORDERED: SENNOSIDES/DOCUSATE 8.6/50MG TABLET. PO PRN (23:00)
[2018-04-06] MEDS ORDERED: ACETAMINOPHEN 325 MG TABLET PO PRN (23:00)
[2018-04-06] MEDS: FAMOTIDINE 20 MG TABLET PO SCH (23:25)
[2018-04-06] MEDS: SIMVASTATIN 20 MG TABLET PO SCH (23:26)
[2018-04-06] MEDS: CARVEDILOL 12.5 MG TABLET PO SCH (23:26)
[2018-04-06] MEDS: IV NORMAL SALINE 1,000ML 1,000 ML IV SCH (23:27)
[2018-04-06 23:36] LABS: BILIRUBIN,URINE NEG (NEG); CLARITY,URINE CLEAR; COLOR,URINE YELLOW; GLUCOSE,URINE NEG (NEG)
[2018-04-06 23:37] LABS: BACTERIA,URINE 0 /HPF (0-FEW); NITRITE,URINE NEG (NEG); RBC,URINE 0 /HPF (0-2); SQUAMOUS EPITHELIAL CELL,UR FEW /LPF; UROBILINOGEN,URINE 0.2 mg/dL (0.2 mg/dL); WBC,URINE OCC /HPF (0-4)
[2018-04-07] MEDS: MORPHINE SULFATE 4 MG/ML DISP.SYRIN. IV PRN ×2 (01:29→13:29)
[2018-04-07] MEDS: ONDANSETRON PF 4 MG/2 ML VIAL. IV PRN ×2 (02:52→15:38)
[2018-04-07] MEDS: METOCLOPRAMIDE HCL 10 MG/2 ML VIAL. IV PRN ×2 (04:59→13:29)
[2018-04-07 06:42] VITALS: BP 113/72
[2018-04-07] MEDS: ASPIRIN ENTERIC COATED 81 MG TABLET.DR. PO SCH (09:08)
[2018-04-07] MEDS: MULTIVITAMIN with MINERAL TABLET. PO SCH (09:08)
[2018-04-07] MEDS: CALCIUM CARB/VIT D3 500/200 TABLET PO SCH ×2 (09:08→17:00)
[2018-04-07] MEDS: CARVEDILOL 12.5 MG TABLET PO SCH ×2 (09:08→20:32)
[2018-04-07 11:25] VITALS: BP 123/75
[2018-04-07 13:04] LABS: BASO # 0.1 x10^3/uL (0.0-0.2); BASO % 2 % (0-3); EOS # 0.4 x10^3/uL (0.0-0.7); EOS % 6 % (0-3); HEMATOCRIT 26.6 % (36.0-47.0); HEMOGLOBIN 8.9 g/dL (12.0-15.5); LYMPH # 1.3 x10^3/uL (1.0-4.8); LYMPH % 19 % (24-48); MEAN CORPUSCULAR HEMOGLOBIN 30 pg (25-35); MEAN CORPUSCULAR HGB CONC 33 g/dL (31-37); MEAN CORPUSCULAR VOLUME 92 fL (79-100); MONO # 0.6 x10^3/uL (0.0-1.1); MONO % 8 % (0-9); NEUT # 4.5 x10^3uL (1.8-7.7); NEUT % 65 % (31-73); PLATELET COUNT 246 x10^3/uL (140-400); RED BLOOD COUNT 2.91 x10^6/uL (3.50-5.40); RED CELL DISTRIBUTION WIDTH 15.3 % (11.5-14.5); WHITE BLOOD COUNT 6.9 x10^3/uL (4.0-11.0)
[2018-04-07 13:06] LABS: BGAS PH 7.4 (7.35-7.45)
[2018-04-07 13:16] LABS: ALBUMIN 2.4 g/dL (3.4-5.0); ALBUMIN/GLOBULIN RATIO 0.5 (1.0-1.7); CALCIUM 8.8 mg/dL (8.5-10.1); CREATININE 1.2 mg/dL (0.6-1.0); GFR 42.7; POTASSIUM 4.8 mmol/L (3.5-5.1); TOTAL BILIRUBIN 0.2 mg/dL (0.2-1.0)
[2018-04-07] MEDS: IV NORMAL SALINE 1,000ML 1,000 ML IV SCH (13:28)
[2018-04-07] MEDS ORDERED: DEXTROSE 50% 25 GM / 50ML DISP.SYRIN. IV PRN (14:00)
--- NOTE | 2018-04-07 15:14 | HP ---
ADMIT DATE: 04/07/2018 HISTORY OF PRESENT ILLNESS: The patient is an 87-year-old German Israeli female patient, who came to the Emergency Room complaining of abdominal pain. Pain is mostly in the epigastric, lower chest associated with nausea and vomiting. She was not sure about when was the last time she has a bowel movement. She stated that she has have no trouble urinating. She has not had any fever or chills at home. Her Nigerien is not perfect and the history is somewhat incomplete. The patient; however, denied any shortness of breath. Denied any cough, phlegm, or hemoptysis. Denied any diaphoresis. She was seen in the Emergency Room and was extensively investigated her lab work. She has had CBC. Her chemistry was unremarkable except that her BUN and creatinine are slightly elevated. She was probably dehydrated. Her troponin I was slightly elevated at 654. Urinalysis was essentially unremarkable. She was admitted and continued on all her medication. Continued on IV fluid. PAST MEDICAL HISTORY: Significant for metastatic lung cancer, first diagnosed in 2017, coronary artery disease with stent deployment, hypertension, hyperlipidemia, type 2 diabetes, multiple TIAs, chronic back pain and knee pain. PAST SURGICAL HISTORY: Significant for PCI with stent deployment. FAMILY HISTORY: Unremarkable. SOCIAL HISTORY: She lives with her . She is an ex-smoker, quit about 10 years ago. She does not drink alcohol or use any recreational drugs. ALLERGIES: She has no known drug allergies. MEDICATIONS: She is currently on following medications: She is on simvastatin 20 mg at bedtime, carvedilol 25 mg twice a day, aspirin 81 mg once a day, fentanyl patch 25 mcg per hour topically q.72 hours, morphine sulfate 20 mg sublingually every 3 hours as needed. She is on Tylenol 650 mg every 6 hours, calcium carbonate with vitamin D one tablet twice a day, Senna S 1 tablet twice a day, famotidine 20 mg at bedtime, multivitamin 1 tablet once a day. REVIEW OF SYSTEMS: As per history of present illness. PHYSICAL EXAMINATION: GENERAL: On arrival to the Emergency Room, the patient looked pale, no jaundice, cyanosis, or thyromegaly. No jugular venous distention. No limb edema. VITAL SIGNS: Her heart rate was 98, blood pressure was 129/73, temperature was 97.4, respiratory rate 20, and oxygen saturation was 100% on room air. HEAD, EYES, EARS, NOSE AND THROAT: Showed normocephalic, atraumatic. NECK: Supple. HEART: Showed normal first and second heart sounds with no gallop, rub or murmur. CHEST: Clear to auscultation. No crepitation or rhonchi. ABDOMEN: Distended, soft, nontender. No guarding or rigidity. No organomegaly. All hernial orifice intact. Bowel sounds normal. NEUROLOGIC: She is awake, alert, responding appropriately. All cranial nerves intact. EXTREMITIES: She moves extremities without difficulty. LABORATORY DATA: On arrival to the Emergency Room showed a white cell count of 9000, hemoglobin 10, hematocrit 31, MCV 92, and platelet count of 336,000. Her chemistry showed her serum sodium 133, potassium 4.8, chloride 99, bicarbonate 24, anion gap of 10, BUN 64, creatinine 1.6, estimated GFR was 30 mL per minute. Her glucose was 197, lactic acid was 1.7, calcium was 9.1. Total bilirubin, AST, ALT, alkaline phosphatase were normal. Her first set of cardiac enzymes showed troponin to be 0.654. Total protein was 7.6, albumin was 2.6. Her urinalysis showed the urine was yellow, clear with a pH of 5, specific gravity of 1.010. There was small amount of protein. The urine was negative for glucose, ketones, small amount of blood, negative for nitrite and leukocyte esterase. There are no rbc's, occasional wbc's, and very few bacteria. Her chest x-ray showed the patient has been prior median sternotomy and left axillary lymph node dissection. She has large left upper lobe mass. Stable scattered areas of pleural parenchymal scarring throughout both lungs. No pleural effusion, pneumothorax or new focal consolidation. She did have a CT scan of the abdomen and pelvis, which showed that there is no noncontrast CT evidence of acute abdominal or pelvic process. Lower esophageal thickening to be due to reflux esophagitis though Moreno's esophagus and neoplasm can have a similar appearance. Clinical correlation is recommended. She has small bilateral lower lobe noncalcified pulmonary nodules that are intermediate. Followup CT chest is recommended to assess for stability. ASSESSMENT AND PLAN: The patient was admitted with acute abdomen and lower chest pain. All her labs are essentially negative except slightly elevated troponin. I did start her on IV fluid, IV pain medication and antiemetics. She is also on IV Protonix, was started on a low dose sliding scale before meals only. I will follow her closely and decide on further management accordingly. SEAN SIMPSON MD DR: ASAEL/anayeli JOB#: [id number] / [id number]
[2018-04-07 15:32] VITALS: BP 117/53
--- NOTE | 2018-04-07 16:04 | PN ---
DATE: 04/07/2018 SUBJECTIVE: The patient is resting slightly propped up in bed, in no apparent distress. She is awake, alert, did have some nausea and vomiting this morning. By the time I saw her, she has had no further episodes of nausea and vomiting. Her abdominal pain has largely subsided. We did repeat her lab work this afternoon and her lab work seems to be stable. Her kidney function has actually improved. Her creatinine is down from 1.6 down to 1.2 and her BUN is down from 64-49. We did continue with IV fluid, IV pain medication and antiemetic. We started her on a clear liquid diet as well as IV Protonix. PHYSICAL EXAMINATION: GENERAL: When I saw her this afternoon, she looked well and was clearly in no apparent respiratory distress, pale, somewhat cachectic, but no jaundice, cyanosis, or thyromegaly. No jugular venous distension. No lower limb edema. VITAL SIGNS: Her heart rate was 88, blood pressure was 129/73, temperature was 97.4, respiratory rate was 20, and oxygen saturation was 98%. HEAD, EYES, EARS, NOSE AND THROAT: Showed normocephalic, atraumatic. NECK: Supple. HEART: Showed normal first and second heart sounds. No gallop, rub or murmur. CHEST: Clear to auscultation. No crepitation or rhonchi. ABDOMEN: Distended, soft, nontender. NEUROLOGIC: She is awake, alert, responding appropriately. Cranial nerves intact. She moves extremities without difficulty. Her intake over the last 24 hours and output were incompletely recorded. LABORATORY DATA: Her lab work this afternoon showed a serum sodium 130, potassium 4.8, chloride 97, bicarbonate 25, anion gap of 8, BUN of 49, creatinine 1.2, estimated GFR was 42 mL per minute. Her glucose was 246. Her lactic acid is down to 1.2, calcium was 8.8. Total bilirubin, AST, ALT and alkaline phosphatase were normal. LDH was slightly high at 308. She has 2 more sets of cardiac enzymes and that are actually trending down, one is 0.420 and the other one is 0.229. Her total protein was 7 and albumin was 2.4. ASSESSMENT: Acute upper abdomen and lower chest has resolved. She has mildly elevated troponin that actually trending down. Acute kidney injury on chronic kidney disease, resolving. PLAN: To continue with IV fluid, pain management, antiemetic. Continue with clear liquid diet. We will advance diet as tolerated tomorrow and decide on further management accordingly. SEAN SIMPSON MD DR: ASAEL/anayeli JOB#: [id number] / [id number]
[2018-04-07] MEDS: INSULIN LISPRO 300 UNITS/3 ML INSULN.PEN. SQ SCH (17:00)
[2018-04-07 19:59] VITALS: BP 112/71
[2018-04-07] MEDS: SIMVASTATIN 20 MG TABLET PO SCH (20:32)
[2018-04-07] MEDS: FAMOTIDINE 20 MG TABLET PO SCH (20:32)
[2018-04-07 23:02] VITALS: BP 100/66
[2018-04-08] MEDS: IV NORMAL SALINE 1,000ML 1,000 ML IV SCH (02:07)
[2018-04-08 06:00] VITALS: BP 109/53
[2018-04-08] MEDS: INSULIN LISPRO 300 UNITS/3 ML INSULN.PEN. SQ SCH ×3 (08:00→17:00)
[2018-04-08 08:11] LABS: CALCIUM 8.7 mg/dL (8.5-10.1); CREATININE 1.1 mg/dL (0.6-1.0); GFR 47.2; POTASSIUM 4.7 mmol/L (3.5-5.1)
[2018-04-08] MEDS: CALCIUM CARB/VIT D3 500/200 TABLET PO SCH ×2 (08:22→17:10)
[2018-04-08] MEDS: MULTIVITAMIN with MINERAL TABLET. PO SCH (08:22)
[2018-04-08] MEDS: PANTOPRAZOLE IV 40 MG VIAL. IVP SCH (08:23)
[2018-04-08] MEDS: ASPIRIN ENTERIC COATED 81 MG TABLET.DR. PO SCH (08:23)
[2018-04-08 08:27] VITALS: BP 95/61
[2018-04-08] MEDS: CARVEDILOL 12.5 MG TABLET PO SCH ×2 (08:27→22:40)
[2018-04-08 11:30] VITALS: BP 106/53
[2018-04-08] MEDS: ENOXAPARIN 30 MG/0.3 ML SYRINGE. SQ SCH (14:32)
[2018-04-08 14:34] VITALS: BP 121/58
[2018-04-08 19:26] VITALS: BP 124/64
[2018-04-08 22:30] VITALS: BP 135/63
[2018-04-08] MEDS: SIMVASTATIN 20 MG TABLET PO SCH (22:39)
[2018-04-08] MEDS: FAMOTIDINE 20 MG TABLET PO SCH (22:39)
[2018-04-09 05:35] VITALS: BP 111/51
[2018-04-09] MEDS: PANTOPRAZOLE IV 40 MG VIAL. IVP SCH (08:02)
[2018-04-09 08:09] LABS: CALCIUM 8.9 mg/dL (8.5-10.1); CREATININE 1.2 mg/dL (0.6-1.0); GFR 42.7; POTASSIUM 4.5 mmol/L (3.5-5.1)
[2018-04-09] MEDS: CALCIUM CARB/VIT D3 500/200 TABLET PO SCH ×2 (08:17→17:33)
[2018-04-09] MEDS: ASPIRIN ENTERIC COATED 81 MG TABLET.DR. PO SCH (08:17)
[2018-04-09] MEDS: INSULIN LISPRO 300 UNITS/3 ML INSULN.PEN. SQ SCH ×3 (08:20→17:33)
[2018-04-09] MEDS: CARVEDILOL 12.5 MG TABLET PO SCH ×2 (09:00→20:02)
[2018-04-09] MEDS ORDERED: fentaNYL 25MCG/HR 1 PATCH PATCH TD SCH (09:00)
[2018-04-09] MEDS: MULTIVITAMIN with MINERAL TABLET. PO SCH (09:49)
[2018-04-09 10:29] VITALS: BP 111/75
[2018-04-09] MEDS: MORPHINE SULFATE 4 MG/ML DISP.SYRIN. IV PRN ×2 (12:43→17:33)
[2018-04-09] MEDS: ENOXAPARIN 30 MG/0.3 ML SYRINGE. SQ SCH (14:15)
[2018-04-09 15:12] VITALS: BP 150/67
[2018-04-09] MEDS: FAMOTIDINE 20 MG TABLET PO SCH (20:02)
[2018-04-09] MEDS: SIMVASTATIN 20 MG TABLET PO SCH (20:03)
[2018-04-09 20:47] VITALS: BP 110/62
[2018-04-09 23:02] VITALS: BP 111/69
--- NOTE | 2018-04-10 01:39 | PN ---
DATE: 04/09/2018 SUBJECTIVE: The patient is resting slightly propped up in bed, in no apparent respiratory distress. She is awake, alert, but confused. Nursing staff said that she has eaten most of her breakfast this morning and half of her lunch when went there to see her this afternoon. She did not voice any complaints. OBJECTIVE: GENERAL: On examining her, she was resting flat, comfortably in bed, no apparent distress, pale, but no jaundice, cyanosis, or thyromegaly. No jugular venous distension. No limb edema. VITAL SIGNS: Her heart rate was 71, blood pressure 150/67, temperature was 98, respiratory rate 20, and oxygen saturation was 98% on room air. HEAD, EYES, EARS, NOSE AND THROAT: Normocephalic, atraumatic. NECK: Supple. HEART: Showed normal first and second heart sounds. No gallop, rub or murmur. CHEST: Clear to auscultation. No crepitation or rhonchi. ABDOMEN: Distended, soft, nontender. NEUROLOGIC: She was awake, alert, but somewhat confused. She apparently has right-sided weakness. Her intake over the last 24 hours was 1800, output was 450. LABORATORY DATA: This morning showed a serum sodium of 133, potassium 4.5, chloride 102, bicarbonate 22, anion gap of 9, BUN 25, creatinine 1.2, estimated GFR was 42 mL per minute. Her glucose was 95, calcium was 8.9. Her white cell count was 6900, hemoglobin 9, hematocrit 27, MCV 92, and platelet count of 246,000. ASSESSMENT: Acute upper abdominal and lower chest pain that has resolved. There was mildly elevated troponin, that is trending down. Acute kidney injury on chronic kidney disease, resolving. PLAN: To continue the IV fluid, pain management, antiemetic. Continue with the clear, could advance diet as tolerated. We had a lengthy discussion with her and her son and apparently they are leaning towards considering hospice care again and we did consult the ____ for reevaluation and treatment. SEAN SIMPSON MD DR: ASAEL/anayeli JOB#: [id number] / [id number]
[2018-04-10 05:59] VITALS: BP 114/62
[2018-04-10] MEDS ORDERED: PANTOPRAZOLE 40 MG TABLET. PO SCH (07:30)
[2018-04-10] MEDS: INSULIN LISPRO 300 UNITS/3 ML INSULN.PEN. SQ SCH ×2 (08:12→12:20)
[2018-04-10] MEDS: CARVEDILOL 12.5 MG TABLET PO SCH (08:12)
[2018-04-10] MEDS: MULTIVITAMIN with MINERAL TABLET. PO SCH (08:12)
[2018-04-10] MEDS: CALCIUM CARB/VIT D3 500/200 TABLET PO SCH (08:12)
[2018-04-10] MEDS: ASPIRIN ENTERIC COATED 81 MG TABLET.DR. PO SCH (08:13)
[2018-04-10 08:31] LABS: ALBUMIN 2.1 g/dL (3.4-5.0); ALBUMIN/GLOBULIN RATIO 0.5 (1.0-1.7); CALCIUM 8.8 mg/dL (8.5-10.1); CREATININE 1.5 mg/dL (0.6-1.0); POTASSIUM 4.5 mmol/L (3.5-5.1); TOTAL BILIRUBIN 0.2 mg/dL (0.2-1.0); TOTAL PROTEIN 6.4 g/dL (6.4-8.2)
[2018-04-10 08:36] LABS: HEMATOCRIT 25.8 % (36.0-47.0); HEMOGLOBIN 8.4 g/dL (12.0-15.5); RED BLOOD COUNT 2.78 x10^6/uL (3.50-5.40); RED CELL DISTRIBUTION WIDTH 15.4 % (11.5-14.5); WHITE BLOOD COUNT 6.8 x10^3/uL (4.0-11.0)
[2018-04-10 10:49] VITALS: BP 121/67
--- NOTE | 2018-04-10 14:20 | DS ---
DATE OF DISCHARGE: 04/10/2018 HOSPITAL COURSE: The patient is an 87-year-old [place] Vincentian female patient, who was admitted with recurrent bouts of nausea, vomiting and abdominal and lower chest pain. She was extensively investigated her lab works, were unremarkable except slightly elevated troponin. We did start her on IV fluid, IV pain medication, antiemetic and she did very well. We also added IV Protonix and a low dose sliding scale before meals as she is known to have type 2 diabetes. Her symptoms gradually resolved, but start her on a clear liquid diet and advance to regular diet and she did well. She has had no further episode of chest pain or abdominal pain. Her son expressed her desire to put her back on hospice and we did contact [facility] to evaluate and treat and she will be discharged home. PHYSICAL EXAMINATION: GENERAL: When I saw her this morning, she was resting slightly propped up in bed, in no apparent respiratory distress, pale, but no jaundice, cyanosis, or thyromegaly. No jugular venous distension. No limb edema. VITAL SIGNS: Her heart rate was 61, blood pressure was 121/67, temperature was 97.5, respiratory rate was 18 and oxygen saturation was 96%. HEAD, EYES, EARS, NOSE AND THROAT: Normocephalic, atraumatic. NECK: Supple. HEART: Showed normal first and second heart sounds with no gallop, rub or murmur. CHEST: Clear to auscultation. No crepitation or rhonchi. ABDOMEN: Distended, soft, nontender. NEUROLOGIC: She was sleepy, but arousable. All cranial nerves intact. She seemed to have right-sided hemiparesis; however, she is mostly bed bound. Her intake over the last 24 hours was 880 and output was 550. LABORATORY DATA: Showed a white cell count of 6800, hemoglobin 8.4, hematocrit 26, MCV 93, and platelet count of 222,000. Her serum sodium was 133, potassium 4.5, chloride 101, bicarbonate 24, anion gap of 8, BUN 37, creatinine was 1.5, estimated GFR was 33 mL per minute. Her glucose 176, calcium was 8.8. Total bilirubin, AST, ALT, alkaline phosphatase were normal. Her total protein was 6.4 and albumin was 2.1. DISCHARGE MEDICATIONS: She will be discharged home to continue her Protonix 40 mg once a day, fentanyl patch 25 mcg topically q. 72 hours, multivitamin 1 tablet once a day, calcium with vitamin D one tablet once a day, aspirin 81 mg once a day, metoclopramide 5 mg before meals and bedtime, simvastatin 20 mg at bedtime, famotidine 20 mg at bedtime, carvedilol 25 mg twice a day, Senna S 1 tablet at bedtime as needed for constipation and Tylenol 650 mg every 4 hours as needed for pain or fever. FINAL DISCHARGE DIAGNOSES: Acute gastroenteritis, resolved. Acute kidney injury on chronic kidney disease, resolved. Other medical problems including left upper lobe bronchogenic carcinoma, coronary artery disease, status post stent deployment, hypertension, hyperlipidemia, type 2 diabetes, multiple TIAs, chronic back pain and knee pain. SEAN SIMPSON MD DR: ASAEL/anayeli JOB#: [id number] / [id number]
== END 2018-04-10 14:05 | disposition hospice, home (50) | DRG 682 ==
LOC: ER 17:00 → UNDOADMIN 19:44 → ICU 19:44 → 1 SOUTH 19:44
PROVIDERS: ADMIT Internal Medicine; ATTEND Internal Medicine
DX: N17.9 Acute kidney failure, unspecified (principal); E43 Unspecified severe protein-calorie malnutrition; K52.9 Noninfective gastroenteritis and colitis, unspecified; F32.9 Major depressive disorder, single episode, unspecified; G89.29 Other chronic pain; M19.90 Unspecified osteoarthritis, unspecified site; E03.9 Hypothyroidism, unspecified; N18.9 Chronic kidney disease, unspecified; E11.22 Type 2 diabetes mellitus with diabetic chronic kidney disease; I12.9 Hypertensive chronic kidney disease with stage 1 through stage 4 chronic kidney disease, or unspecified chronic kidney disease; E78.00 Pure hypercholesterolemia, unspecified; E78.5 Hyperlipidemia, unspecified; I25.10 Atherosclerotic heart disease of native coronary artery without angina pectoris; Z85.118 Personal history of other malignant neoplasm of bronchus and lung; Z79.899 Other long term (current) drug therapy; Z95.5 Presence of coronary angioplasty implant and graft; Z87.891 Personal history of nicotine dependence; Z86.73 Personal history of transient ischemic attack (TIA), and cerebral infarction without residual deficits; I25.2 Old myocardial infarction
CPT/HCPCS: 36415; 71045; 74176; 80048; 80053; 81001; 82803; 82947; 83605; 83615; 83690; 84484; 85025; 85027; 90471; 90756; 93005; 96374; C9113; J1650; J1815; J2270; J2405; J2765; J3010; Q9967; 97530; 99285-25; J7030; Q2035

== ENCOUNTER 2018-05-05 11:51 | Emergency (ER) | payer MEDICARE, OTHER ==
[~2018-05-05] VITALS: Ht 144.8 cm; Wt 38.7 kg
[2018-05-05 11:52] VITALS: BP 97/56
[2018-05-05] MEDS: ONDANSETRON PF 4 MG/2 ML VIAL. IV ONE ×2 (12:36→15:43)
[2018-05-05] MEDS: IV NORMAL SALINE 1,000ML 1,000 ML IV SCH (12:37)
[2018-05-05 12:38] LABS: BASO # 0.1 x10^3/uL (0.0-0.2); BASO % 1 % (0-3); EOS % 1 % (0-3); HEMATOCRIT 35.4 % (36.0-47.0); HEMOGLOBIN 11.5 g/dL (12.0-15.5); LYMPH # 1.6 x10^3/uL (1.0-4.8); LYMPH % 18 % (24-48); MEAN CORPUSCULAR HEMOGLOBIN 30 pg (25-35); MEAN CORPUSCULAR HGB CONC 33 g/dL (31-37); MEAN CORPUSCULAR VOLUME 92 fL (79-100); MONO # 0.8 x10^3/uL (0.0-1.1); MONO % 9 % (0-9); NEUT # 6.1 x10^3uL (1.8-7.7); NEUT % 71 % (31-73); PLATELET COUNT 344 x10^3/uL (140-400); RED BLOOD COUNT 3.83 x10^6/uL (3.50-5.40); RED CELL DISTRIBUTION WIDTH 15.1 % (11.5-14.5); WHITE BLOOD COUNT 8.6 x10^3/uL (4.0-11.0)
--- NOTE | 2018-05-05 12:42 | PHYS DOC ---
Past History Past Medical History: Anemia, Arthritis, Cancer, Depression, High Cholesterol, Heart Disease, Hypothyroid, CT, TIA, Other Additional Past Medical Histor: end-stage lung cancer Past Surgical History: Cancer Surgery, Coronary Bypass Surgery, Other Smoking: Cigarettes, Quit Greater Than 1 Year Alcohol Use: None Drug Use: None Adult General Chief Complaint Chief Complaint: ABDOMINAL PAIN HPI HPI Patient is an 87-year-old female who presents with complaint of generalized abdominal pain for the last 3 days. Patient has had nausea and vomiting. EMS reports that the vomitus has been bilious appearing. Patient is not sure when her last bowel movement was. She rates her pain as being severe. She is not able to say whether anything makes the pain better or worse. She denies any radiation of the pain. Review of Systems Review of Systems Constitutional: Denies fever or chills [] Respiratory: Denies cough or shortness of breath [] Cardiovascular: No additional information not addressed in HPI [] GI: Complains of abdominal pain with nausea and vomiting. Denies diarrhea [] All other systems were reviewed and found to be within normal limits, except as documented in this note. Current Medications Current Medications Current Medications Medications (Trade) Dose Ordered Sig/Aquiles Start Time Stop Time Status Last Admin Dose Admin Fentanyl Citrate (Fentanyl 2ml Vial) 25 mcg 1X ONCE 05/05/18 12:30 05/05/18 12:31 Ondansetron HCl (Zofran) 4 mg 1X ONCE 05/05/18 12:30 05/05/18 12:31 Sodium Chloride 1,000 ml @ 100 mls/hr Q10H 05/05/18 11:59 05/05/18 21:58 Allergies Allergies Allergies Coded Allergies Type Severity Reaction Last Updated Verified No Known Drug Allergies 05/16/14 No Physical Exam Physical Exam Constitutional: Awake and alert, appears uncomfortable, non-toxic appearance. [] HENT: Normocephalic, atraumatic, bilateral external ears normal, oropharynx dry , no oral exudates, nose normal. [] Eyes: PERRLA, EOMI, conjunctiva normal, no discharge. [] Neck: Normal range of motion, no tenderness, supple, no stridor. [] Cardiovascular: Regular rate and rhythm [] Lungs & Thorax: Bilateral breath sounds clear to auscultation [] Abdomen: Bowel sounds diminished, soft, with diffuse tenderness. [] Skin: Warm, dry, no erythema, no rash. [] Extremities: No tenderness, no cyanosis, ROM intact. [] Neurologic: Awake and alert, no focal deficits noted. [] Current Patient Data Vital Signs Vital Signs Date Time Temp Pulse Resp B/P (MAP) Pulse Ox O2 Delivery O2 Flow Rate FiO2 05/05/18 11:52 98.2 80 20 97 Room Air EKG EKG [] Radiology/Procedures Radiology/Procedures [] Impressions: PROCEDURE: CT ABDOMEN PELVIS WO CONTRAST PQRS Compliance statement: One or more of the following individualized dose reduction techniques were utilized for this examination: 1. Automated exposure control. 2. Adjustment of the mA and/or kV according to patient size. 3. Use of iterative reconstruction technique. Indication:Abd pain x 2 days w/o iv contrast, hx of Lung ca TECHNIQUE: CT abdomen and pelvis without IV contrast with multiplanar reformats. COMPARISON: 04/06/2018 FINDINGS: Limited evaluation of solid abdominal and pelvic organs due to lack of IV contrast. Clear lung bases. Noncontrast appearance of the liver, spleen, pancreas, adrenals within normal limits. Status post cholecystectomy. Stable dilation of the CBD without obstructing intraluminal renal stone. Infrarenal IVC filter noted. Low attenuating lesion in the upper pole of the right kidney measuring 1.6 cm most likely a simple cyst. No nephrolithiasis or hydronephrosis. No enlarged retroperitoneal or pelvic adenopathy. Diffuse significant atherosclerotic disease seen in the aorta and bilateral iliac arteries. Small sliding hiatal hernia. No bowel obstruction. No free pelvic fluid or ascites. Uterus is anteverted. Urinary bladder demonstrates no radiopaque stones. No pneumoperitoneum. Status post ORIF of left proximal femoral fracture. Diffuse osteopenia. Multiple stable compression deformities are seen in the lumbar spine with kyphoplasty at T12-L3 vertebral body. Stable compression deformity of L5 vertebral body. Status post laminectomy at L3. IMPRESSION: Limited evaluation of solid abdominal and pelvic organs due to lack of IV contrast. 1. No bowel obstruction. 2. Significant atherosclerotic disease of the abdominal aorta and bilateral iliac arteries. 3. Multiple stable compression deformities in the lumbar spine. Electronically signed by: Taurus Montes DO (05/05/2018 1:34 PM) [facility] Course & Med Decision Making Course & Med Decision Making Pertinent Labs and Imaging studies reviewed. (See chart for details) [] Dragon Disclaimer Dragon Disclaimer This electronic medical record was generated, in whole or in part, using a voice recognition dictation system. Departure Departure: Impression: Primary Impression: Constipation Additional Impression: Generalized abdominal pain Disposition: HOME, SELF-CARE Condition: STABLE Referrals: SANDHYA NAQVI (PCP) Patient Instructions: Abdominal Pain, Constipation, Adult Scripts Lactulose (LACTULOSE) 10 Gm/15 Ml Solution 30 ML PO [id number] PRN for CONSTIPATION, #900 ML 1 Refill Prov: GEO HOPKINS Jr. DO 05/05/18 Problem Qualifiers Primary Impression: Constipation Constipation type: unspecified constipation type Qualified Codes: K59.00 - Constipation, unspecified GEO HOPKINS Jr. DO May 05, 2018 12:42
[2018-05-05 12:57] LABS: ALBUMIN 3.5 g/dL (3.4-5.0); ALBUMIN/GLOBULIN RATIO 0.6 (1.0-1.7); CALCIUM 10.4 mg/dL (8.5-10.1); CREATININE 1.4 mg/dL (0.6-1.0); GFR 35.7; POTASSIUM 4.2 mmol/L (3.5-5.1); TOTAL BILIRUBIN 0.2 mg/dL (0.2-1.0); TOTAL PROTEIN 9.5 g/dL (6.4-8.2)
--- NOTE | 2018-05-05 13:38 | RAD ---
PQRS Compliance statement: One or more of the following individualized dose reduction techniques were utilized for this examination: 1. Automated exposure control. 2. Adjustment of the mA and/or kV according to patient size. 3. Use of iterative reconstruction technique. Indication:Abd pain x 2 days w/o iv contrast, hx of Lung ca TECHNIQUE: CT abdomen and pelvis without IV contrast with multiplanar reformats. COMPARISON: 04/06/2018 FINDINGS: Limited evaluation of solid abdominal and pelvic organs due to lack of IV contrast. Clear lung bases. Noncontrast appearance of the liver, spleen, pancreas, adrenals within normal limits. Status post cholecystectomy. Stable dilation of the CBD without obstructing intraluminal renal stone. Infrarenal IVC filter noted. Low attenuating lesion in the upper pole of the right kidney measuring 1.6 cm most likely a simple cyst. No nephrolithiasis or hydronephrosis. No enlarged retroperitoneal or pelvic adenopathy. Diffuse significant atherosclerotic disease seen in the aorta and bilateral iliac arteries. Small sliding hiatal hernia. No bowel obstruction. No free pelvic fluid or ascites. Uterus is anteverted. Urinary bladder demonstrates no radiopaque stones. No pneumoperitoneum. Status post ORIF of left proximal femoral fracture. Diffuse osteopenia. Multiple stable compression deformities are seen in the lumbar spine with kyphoplasty at T12-L3 vertebral body. Stable compression deformity of L5 vertebral body. Status post laminectomy at L3. IMPRESSION: Limited evaluation of solid abdominal and pelvic organs due to lack of IV contrast. 1. No bowel obstruction. 2. Significant atherosclerotic disease of the abdominal aorta and bilateral iliac arteries. 3. Multiple stable compression deformities in the lumbar spine. Electronically signed by: Taurus Montes DO (05/05/2018 1:34 PM) [facility]
[2018-05-05 14:19] LABS: CLARITY,URINE CLEAR; COLOR,URINE YELLOW; GLUCOSE,URINE >=1000 mg/dL (NEG)
[2018-05-05 14:20] LABS: BACTERIA,URINE 0 /HPF (0-FEW); BILIRUBIN,URINE NEG (NEG); NITRITE,URINE NEG (NEG); SQUAMOUS EPITHELIAL CELL,UR OCC /LPF; UROBILINOGEN,URINE 0.2 mg/dL (0.2 mg/dL); WBC,URINE 0 /HPF (0-4)
[2018-05-05] MEDS ORDERED: LACT10SO PO (16:07)
[2018-05-05] MEDS: fentaNYL 25MCG/HR 1 PATCH PATCH TD ONE (16:43)
--- NOTE | 2018-05-05 16:56 | EKG ---
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
[2018-05-08] MEDS ORDERED: fentaNYL 25MCG/HR 1 PATCH PATCH TD SCH (09:00)
== END 2018-05-05 16:50 | disposition home or self-care (01) ==
LOC: ER 11:51
DX: K59.00 Constipation, unspecified (principal); R11.2 Nausea with vomiting, unspecified; M19.90 Unspecified osteoarthritis, unspecified site; F32.9 Major depressive disorder, single episode, unspecified; E78.00 Pure hypercholesterolemia, unspecified; E03.9 Hypothyroidism, unspecified; I25.2 Old myocardial infarction; F17.210 Nicotine dependence, cigarettes, uncomplicated; Z86.79 Personal history of other diseases of the circulatory system; Z86.73 Personal history of transient ischemic attack (TIA), and cerebral infarction without residual deficits; Z95.1 Presence of aortocoronary bypass graft; Z86.2 Personal history of diseases of the blood and blood-forming organs and certain disorders involving the immune mechanism
CPT/HCPCS: 36415; 74176; 80053; 81001; 83690; 85025; 93005; 96361; 96374; 96375; 96376; 99284; J2405; J3010; J7030

== ENCOUNTER 2018-05-08 09:35 | Inpatient (IN) | payer MEDICARE, OTHER ==
[~2018-05-08] VITALS: Ht 144.8 cm; Wt 35.9 kg
[~2018-05-08 09:35] MED LIST changes: +LACT10SO PO
[2018-05-08] MEDS ORDERED: IV NORMAL SALINE 1,000ML 1,000 ML IV SCH (09:42)
--- NOTE | 2018-05-08 09:54 | PHYS DOC ---
Past History Past Medical History: Anemia, Arthritis, Cancer, Depression, High Cholesterol, Heart Disease, Hypothyroid, NE, TIA, Other Additional Past Medical Histor: end-stage lung cancer Past Surgical History: Cancer Surgery, Coronary Bypass Surgery, Other Smoking: Cigarettes, Quit Greater Than 1 Year Alcohol Use: None Drug Use: None Adult General Chief Complaint Chief Complaint: SHORTNESS OF BREATH HPI HPI Patient is an 87-year-old [place]i Jamaican female who presents to the emergency department for evaluation. According to the EMS, patient began having declining mental status over the past several days, as well as increasing respiratory difficulty. She had been on hospice for apparently end-stage lung cancer, but reportedly the patient's family revoked hospice today, (EMS did report that there were some issues with hospice having adequate staff to take care of the patient's needs at home which might have prompted the revocation). The patient is not able to participate in any history taking and there is no family members present at this time. The patient's oxygen saturation is 95% on a nonrebreather, she has scattered coarse rhonchi and crackles diffusely.. She has a DNR which is apparently still in effect. Given the patient's past practices, according to the nursing staff was familiar with the patient from prior visits, the patient's family usually does come to the emergency department. Review of Systems Review of Systems Unable to obtain review of systems secondary to altered mental status Current Medications Current Medications Current Medications Medications (Trade) Dose Ordered Sig/Aquiles Start Time Stop Time Status Last Admin Dose Admin Sodium Chloride 1,000 ml @ 100 mls/hr Q10H 05/08/18 09:42 05/08/18 19:41 Allergies Allergies Allergies Coded Allergies Type Severity Reaction Last Updated Verified No Known Drug Allergies 05/16/14 No Physical Exam Physical Exam PHYSICAL EXAM: CONSTITUTIONAL: Well developed, well nourished HEAD: normocephalic, atraumatic EENT: PERRL, EOMI. Conjunctivae normal color, sclerae non-icteric; significantly dry mucous membranes. NECK: Supple, non-tender; no meningismus. LUNGS: Respiration is mildly labored. There are coarse rhonchi scattered in all lung klein. HEART: Regular tachycardia, no murmur CHEST: No deformity; non-tender ABDOMEN: The abdomen is soft, and non-tender, no masses or bruits. EXTREM: Normal ROM; no deformity, no calf tenderness. Normal pulses palpable in all extremities. There is no pedal edema. SKIN: No rash; no diaphoresis NEURO: Patient is lethargic, there is some occasional involuntary muscle twitching, without definite focal deficit. Current Patient Data Lab Results Laboratory Tests Test 05/08/18 09:57 05/08/18 10:10 05/08/18 10:51 White Blood Count 18.3 x10^3/uL Red Blood Count 3.89 x10^6/uL Hemoglobin 11.7 g/dL Hematocrit 36.0 % Mean Corpuscular Volume 93 fL Mean Corpuscular Hemoglobin 30 pg Mean Corpuscular Hemoglobin Concent 33 g/dL Red Cell Distribution Width 15.0 % Platelet Count 329 x10^3/uL Neutrophils (%) (Auto) 89 % Lymphocytes (%) (Auto) 4 % Monocytes (%) (Auto) 7 % Eosinophils (%) (Auto) 0 % Basophils (%) (Auto) 0 % Neutrophils # (Auto) 16.3 x10^3uL Lymphocytes # (Auto) 0.7 x10^3/uL Monocytes # (Auto) 1.3 x10^3/uL Eosinophils # (Auto) 0.0 x10^3/uL Basophils # (Auto) 0.1 x10^3/uL Segmented Neutrophils % 68 % Band Neutrophils % 17 % Lymphocytes % 9 % Monocytes % 6 % Nucleated Red Blood Cells 1 Toxic Vacuolation Slight Platelet Estimate Increased Platelet Clumps, EDTA Present Troponin I Quantitative 3.236 ng/mL Influenza Type A (Rapid) Negative Influenza Type B (Rapid) Negative Bedside Venous pH 7.26 Bedside Venous pCO2 48 mmHg Bedside Venous pO2 49 mmHg Venous Blood HCO3 21 mmol/L POC Venous O2 Saturation (Alley) 78 % Bedside FiO2 100 Sodium Level 137 mmol/L Potassium Level 6.8 mmol/L Chloride Level 98 mmol/L Carbon Dioxide Level 22 mmol/L Anion Gap 17 Blood Urea Nitrogen 132 mg/dL Creatinine 6.7 mg/dL Estimated GFR (Cockcroft-Gault) 5.9 BUN/Creatinine Ratio 20 Glucose Level 255 mg/dL Calcium Level 9.0 mg/dL Magnesium Level 2.4 mg/dL Total Bilirubin 0.5 mg/dL Aspartate Amino Transf (AST/SGOT) 46 U/L Alanine Aminotransferase (ALT/SGPT) 23 U/L Alkaline Phosphatase 105 U/L Creatine Kinase 878 U/L Creatine Kinase MB (Mass) 7.9 ng/mL Creatine Kinase MB Relative Index 0.9 % [id number]-Type Natriuretic Peptide > 08380 pg/mL Total Protein 8.7 g/dL Albumin 2.8 g/dL Albumin/Globulin Ratio 0.5 Lipase 100 U/L Prothrombin Time 10.3 SEC Prothromb Time International Ratio 1.0 Activated Partial Thromboplast Time 26 SEC Lactic Acid Level 2.5 mmol/L Current Medications Medications (Trade) Dose Ordered Sig/Aquiles Route PRN Reason Start Time Stop Time Status Last Admin Dose Admin Sodium Chloride 1,000 ml @ 100 mls/hr Q10H IV 05/08/18 09:42 05/08/18 19:41 05/08/18 10:54 Aspirin (Aspirin) 300 mg 1X ONCE OR 05/08/18 10:45 05/08/18 10:46 DC 05/08/18 10:54 Sodium Polystyrene Sulfonate (Kayexalate) 45 gm 1X ONCE OR 05/08/18 11:30 05/08/18 11:34 DC 05/08/18 11:45 Sodium Bicarbonate (Sodium Bicarb Adult 8.4% Syr) 50 meq 1X ONCE IV 05/08/18 11:30 05/08/18 11:34 DC 05/08/18 11:45 Dextrose 25 gm 1X ONCE IV 05/08/18 11:30 05/08/18 11:34 DC 05/08/18 11:45 Insulin Human Regular (HumuLIN R VIAL) 10 unit 1X ONCE IV 05/08/18 11:30 05/08/18 11:34 DC Sodium Chloride 1,000 ml @ 1,000 mls/hr 1X ONCE IV 05/08/18 11:30 05/08/18 12:29 Ceftriaxone Sodium 1 gm/ Sodium Chloride 50 ml @ 100 mls/hr 1X ONCE IV 05/08/18 12:00 05/08/18 12:29 EKG EKG Normal sinus rhythm a rate of 119 beats for minute, normal axis, normal intervals, there is inferior and lateral ST depression with deep lateral T wave inversion in the precordial leads, there is no evidence of ST elevation. The EKG is limited by motion artifact. These findings are new compared to patient's EKG from a month ago.[] Repeat EKG, done at 1107, is a better quality and shows sinus tachycardia at a rate of 120 beats per minute, normal axis, normal intervals, left ventricular hypertrophy. There is inferior and lateral ST depression with anterior/ lateral T wave inversion. Radiology/Procedures Radiology/Procedures [PROCEDURE: CT HEAD WO CONTRAST CT HEAD INDICATION: Altered mental status COMPARISON: 04/11/2017 Exposure: One or more of the following individualized dose reduction techniques were utilized for this examination: 1. Automated exposure control 2. Adjustment of the mA and/or kV according to patient size 3. Use of iterative reconstruction technique TECHNIQUE: 5 mm contiguous axial images were obtained from the skull base to the vertex in both bone and soft tissue algorithm. FINDINGS: Mild bilateral periventricular white matter hypodensities likely chronic small vessel ischemic disease. Small hypodensity identified in the left frontal lobe likely old infarct similar to prior exam. Age-related cerebral atrophy changes. No evidence of acute intracranial hemorrhage. No extra-axial fluid collections. No mass effect or midline shift. Ventricular size is appropriate. Basal cisterns are patent. No fractures identified.Murillo-white differentiation is preserved.Globes and orbits are within normal limits. Paranasal sinuses and mastoid air cells are clear. IMPRESSION: No acute intracranial findings. ] ER physician preliminary chest x-ray interpretation: Cardiomegaly, mild vascular congestion, left upper lobe mass. Course & Med Decision Making Course & Med Decision Making Pertinent Labs and Imaging studies reviewed. (See chart for details) []CRITICAL CARE TIME: 50 Minutes, excluding any procedures and care of other patients. 11:55 AM: The patient's condition remains critical, but stable. She remains tachycardic, her blood pressure has remained relatively normal. She does appear to be significantly dehydrated. She has had runs of what appear to be SVT or atrial fibrillation in the 160s, which do spontaneously resolved. I suspect that dehydration is a significant part of the patient's problem. I discussed the case with her family as well as her primary care physician, Dr. Dunaway. Her family wishes to have her remain a DNR and do not want any invasive or painful procedures. She is not likely to be a candidate for cardiac catheterization, other intervention. The patient's family physician would like to admit her to this facility, and treat her medically. Dragon Disclaimer Dragon Disclaimer This electronic medical record was generated, in whole or in part, using a voice recognition dictation system. Departure Departure: Impression: Primary Impression: Acute renal failure Additional Impressions: Dehydration Hyperkalemia Non-ST elevation NE (NSTEMI) Disposition: 09 ADMITTED INPATIENT Admitting Physician: Anel Dunaway Condition: GRAVE Referrals: SANDHYA NAQVI (PCP) Problem Qualifiers ANNE DE LA CRUZ MD May 08, 2018 09:54
[2018-05-08 10:22] LABS: BASO # 0.1 x10^3/uL (0.0-0.2); BASO % 0 % (0-3); EOS % 0 % (0-3); HEMOGLOBIN 11.7 g/dL (12.0-15.5); LYMPH # 0.7 x10^3/uL (1.0-4.8); LYMPH % 4 % (24-48); MEAN CORPUSCULAR HEMOGLOBIN 30 pg (25-35); MEAN CORPUSCULAR HGB CONC 33 g/dL (31-37); MEAN CORPUSCULAR VOLUME 93 fL (79-100); MONO # 1.3 x10^3/uL (0.0-1.1); MONO % 7 % (0-9); NEUT # 16.3 x10^3uL (1.8-7.7); NEUT % 89 % (31-73); PLATELET COUNT 329 x10^3/uL (140-400); RED BLOOD COUNT 3.89 x10^6/uL (3.50-5.40); WHITE BLOOD COUNT 18.3 x10^3/uL (4.0-11.0)
--- NOTE | 2018-05-08 10:39 | RAD ---
CT HEAD INDICATION: Altered mental status COMPARISON: 04/11/2017 Exposure: One or more of the following individualized dose reduction techniques were utilized for this examination: 1. Automated exposure control 2. Adjustment of the mA and/or kV according to patient size 3. Use of iterative reconstruction technique TECHNIQUE: 5 mm contiguous axial images were obtained from the skull base to the vertex in both bone and soft tissue algorithm. FINDINGS: Mild bilateral periventricular white matter hypodensities likely chronic small vessel ischemic disease. Small hypodensity identified in the left frontal lobe likely old infarct similar to prior exam. Age-related cerebral atrophy changes. No evidence of acute intracranial hemorrhage. No extra-axial fluid collections. No mass effect or midline shift. Ventricular size is appropriate. Basal cisterns are patent. No fractures identified.Murillo-white differentiation is preserved.Globes and orbits are within normal limits. Paranasal sinuses and mastoid air cells are clear. IMPRESSION: No acute intracranial findings. Electronically signed by: Kunal Clinton MD (05/08/2018 10:35 AM) [place] [id number]
[2018-05-08] MEDS ORDERED: ASPIRIN 300 MG SUPP.RECT PR ONE (10:45)
[2018-05-08 11:16] LABS: ALBUMIN 2.8 g/dL (3.4-5.0); ALBUMIN/GLOBULIN RATIO 0.5 (1.0-1.7); ALK PHOS 105 U/L (46-116); ALT (SGPT) 23 U/L (14-59); ANION GAP 17 (6-14); AST (SGOT) 46 U/L (15-37); BLOOD UREA NITROGEN 132 mg/dL (7-20); BUN/CREATININE RATIO 20 (6-20); CARBON DIOXIDE 22 mmol/L (21-32); CHLORIDE 98 mmol/L (98-107); CREATININE 6.7 mg/dL (0.6-1.0); GFR 5.9; GLUCOSE 255 mg/dL (70-99); SODIUM 137 mmol/L (136-145); TOTAL BILIRUBIN 0.5 mg/dL (0.2-1.0); TOTAL PROTEIN 8.7 g/dL (6.4-8.2)
[2018-05-08 11:17] LABS: INFLUENZA A PATIENT NEGATIVE (NEGATIVE); INFLUENZA B PATIENT NEGATIVE (NEGATIVE)
[2018-05-08 11:20] LABS: POTASSIUM 6.8 mmol/L (3.5-5.1)
[2018-05-08] MEDS ORDERED: INSULIN REGULAR 100 UNIT/ML 3ML VIAL. IV ONE (11:30)
[2018-05-08] MEDS ORDERED: SODIUM BICARB ADULT 8.4% 50 MEQ/50 ML DISP.SYRIN. IV ONE (11:30)
[2018-05-08] MEDS ORDERED: IV NORMAL SALINE 1,000ML 1,000 ML IV ONE (11:30)
[2018-05-08] MEDS ORDERED: DEXTROSE 50% 25 GM / 50ML DISP.SYRIN. IV ONE (11:30)
[2018-05-08] MEDS ORDERED: SODIUM POLYSTYRENE SULFONATE 15 GM/60 ML ORAL.SUSP. PR ONE (11:30)
[2018-05-08 11:38] LABS: LIPASE 100 U/L (73-393); MAGNESIUM 2.4 mg/dL (1.8-2.4)
[2018-05-08 12:01] LABS: % BANDS 17 % (0-9); % LYMPHS 9 % (24-48); % MONOS 6 % (0-10); % SEGS 68 % (35-66); NUCLEATED RBC 1; PLATELET CLUMP PRESENT; PLT ESTIMATE INCREASED (ADEQUATE); TOXIC VACUOLATION SLIGHT
--- NOTE | 2018-05-08 12:08 | RAD ---
Chest radiograph 05/08/2018 9:31 AM INDICATION: Shortness of breath COMPARISON: April 06, 2018 TECHNIQUE: Portable upright frontal view of the chest is provided. FINDINGS: The cardiomediastinal silhouette is within normal limits. Median sternotomy changes are present. Surgical clips are noted in the left breast. Increased alveolar airspace disease is noted in the right lower lobe. There is persistent masslike opacification of the left upper lobe. No pleural effusions or pneumothorax. No pulmonary vascular congestion. IMPRESSION: Increased alveolar airspace disease in the right lower lobe may represent pulmonary infiltrate in the appropriate clinical setting. Electronically signed by: Toyin Bhatti MD (05/08/2018 12:04 PM) [id number]
[2018-05-08] MEDS ORDERED: cefTRIAXone SODIUM 1 GM VIAL IV ONE (12:38)
[2018-05-08] MEDS ORDERED: IV NORMAL SALINE 50ML 50 ML ONE (12:38)
--- NOTE | 2018-05-08 14:39 | NUR ---
Patient admitted to ICU 4. Pt eyes open and responds to pain, no other verbal communication. Patient is on hospice katie at bedside. Agrees with only comfort care at this time. No aggressive treatment no sepsis measure at this time. Jimmie Ruiz
[2018-05-08] MEDS ORDERED: MORPHINE SULFATE 20 MG/ML CONC SOLUTION. SL ONE (14:40)
[2018-05-08] MEDS ORDERED: MORPHINE SULFATE 20 MG/ML CONC SOLUTION. SL PRN (14:45)
--- NOTE | 2018-05-08 17:39 | EKG ---
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
--- NOTE | 2018-05-08 17:46 | EKG ---
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
--- NOTE | 2018-05-08 18:00 | NUR ---
PT admitted per ED. Unable to obtain a BP on admission. Pt has been doing down hill said and has been on and off hospice 4 times. PT had eyes open and would respond by shaking head to some questions. Pt said she was having pain in chest. Pt given roxanol and has been resting comfortably. PT was on a non-rebreather on arrival to ICU with some gasping breathing. PT is now on 5 L NC and breathing at 12 resp per minute. at bedside and requesting only comfort care. Liyah SRINIVASAN
[2018-05-08] MEDS ORDERED: ONDANSETRON PF 4 MG/2 ML VIAL. IV PRN (19:00)
[2018-05-08 19:07] VITALS: BP 104/64
--- NOTE | 2018-05-08 19:11 | HP ---
ADMIT DATE: 05/08/2018 HISTORY OF PRESENT ILLNESS: The patient is an 87-year-old [place] female patient who was on hospice. She apparently has been complaining of shortness of breath with declining mental status over the past few days as well as increasing respiratory difficulty. The family decided to revoke hospice and brought her to the Emergency Room where she was extensively investigated. She was found to have marked leukocytosis with a white cell count of 18,300, hyperkalemia, and acute kidney injury, marked elevated troponin. Her blood gases showed that she was acidotic and hypoxic hypercapnic respiratory failure and had lengthy discussion with the family and our social sciences instructor and basically decided that the patient should be on comfort care. We did stop all her medications. Started her on Roxanol, Ativan, and scopolamine patch. PAST MEDICAL HISTORY: Significant for metastatic lung cancer, first diagnosed in 2017; coronary artery disease with stent deployment; hypertension; hyperlipidemia; type 2 diabetes; multiple TIAs; chronic back pain and knee pain. PAST SURGICAL HISTORY: Significant for PCI with stent deployment. FAMILY HISTORY: Unremarkable. SOCIAL HISTORY: She lives with her . She is an ex-smoker, quit about 10 years ago. She does not drink alcohol or use any recreational drugs. ALLERGIES: She has no known drug allergies. MEDICATIONS: She is currently on following medications: She is on simvastatin 20 mg at bedtime, carvedilol 25 mg twice a day, aspirin 81 mg once a day and she was on fentanyl 25 mcg per hour topically q. 72 hours, morphine sulfate for Roxanol 20 mg sublingually every 3 hours, acetaminophen 650 mg every 6 hours. She is on lactulose 30 mL p.o. daily p.r.n. for constipation, calcium carbonate with vitamin D one tablet twice a day, Senna-S one tablet at bedtime, famotidine 20 mg at bedtime, multivitamin 1 tablet once a day. REVIEW OF SYSTEMS: As per history of present illness. PHYSICAL EXAMINATION: GENERAL: On arrival to the Emergency Room, the patient was clearly pale, but no jaundice, cyanosis, or thyromegaly. No jugular venous distention. No limb edema. VITAL SIGNS: Her heart rate was 119, blood pressure was 116/62, temperature was 97.2. Her oxygen saturation was 95% on 2 liters of oxygen. HEAD, EYES, EARS, NOSE, AND THROAT: Showed normocephalic, atraumatic. NECK: Supple. HEART: Showed normal first and second sounds. No gallop, rub, or murmur. CHEST: Clear to auscultation. No crepitation or rhonchi. ABDOMEN: Scaphoid, soft, nontender. NEUROLOGIC: She was lethargic, but was originally arousable. All her cranial nerves intact. She moves upper extremities to much good extent than lower extremities. She is mostly bed bound. LABORATORY DATA: While in the Emergency Room, she had lab work done, which showed white cell count of 18,300, hemoglobin 11.7, hematocrit 36, MCV 93, and platelet count of 329,000 with normal manual differential. Her blood gases showed pH of 7.26, pCO2 of 48, pO2 of 49, bicarbonate 21, and oxygen saturation was 78% on FiO2 of 100%. Her prothrombin time was 10.3, INR of 1, aPTT was 26. Her chemistry showed serum sodium 137, potassium 6.8, chloride 98, bicarbonate 22, anion gap of 17, BUN 152, creatinine was 6.7. MCV 59. Her estimated GFR was 5.9. Her glucose was 255, lactic acid was 2.5, calcium was 9, magnesium was 2.4. Total bilirubin, AST, ALT, and alkaline phosphatase were normal. Her first troponin was 3.236. Beta natriuretic peptide was 35,000. Total protein was 8.7, albumin was 2.8. Lipase was 100. Her influenza A and B were negative. ASSESSMENT: In summary, this is an 87-year-old [place] female patient who was actually on hospice as she has metastatic lung cancer, has been steadily deteriorating and her family revoked the hospice and was found to have multiple medical problems including acute kidney injury, severe dehydration, hyperkalemia, and [id number]-[id number] elevation myocardial infarction. PLAN: Given her underlying comorbidities is to consider palliative care. We discontinued all her antibiotics. We will continue with Roxanol, Ativan, and scopolamine. SEAN SIMPSON MD DR: ASAEL/anayeli JOB#: [id number] / [id number]
[2018-05-08] MEDS: LORazepam 2 MG/ML VIAL IV PRN (21:00)
--- NOTE | 2018-05-08 22:22 | NUR ---
Pt currently resting with family at bedside, 5L NC, respirations approx 12/minute, Roxanol and Ativan ordered PRN for pain/comfort. Pt is comfort care. Pt occasionally has eyes open and responds to questions by nodding or shaking head, but is nonverbal. Will continue to monitor. Amina Mcmanus RN
[2018-05-09] MEDS: LORazepam 2 MG/ML VIAL IV PRN (00:02)
[2018-05-09 00:19] VITALS: BP 131/51
[2018-05-09] MEDS ORDERED: SCOPOLAMINE 1.5MG PATCH. TD SCH (01:00)
--- NOTE | 2018-05-09 06:15 | NUR ---
Pt HR decreased to 45 at approx 0055. This nurse went into pt's room to assess pt and found pt in asystole with no pulse. Pt's son, David, was in the room. This nurse called the nursing day haul youth supervisor, and both performed an assessment and found no heart rhythm and no pupillary response. Time of was 0103. David stated he wanted to contact his family, and so he contacted them at 0110. The home, [facility], was contacted at [phone]. Pt's arrived at 0157 and remained with pt in her room till 0615, when [facility] took pt, accompanied by her , from the hospital. Amina Mcmanus RN
--- NOTE | 2018-05-23 13:23 | DS ---
DATE OF DISCHARGE: 05/09/2018 DISCHARGE SUMMARY HISTORY AND HOSPITAL COURSE: The patient was an 87-year-old [place] female patient who was admitted on 05/08/2018 to the Emergency Room with a complaint of shortness of breath, declining mental status over the last few days as well as increasing respiratory difficulty. The family decided to revoke hospice and brought her to the Emergency Room where she was extensively investigated and was found to have marked leukocytosis, hyperkalemia, acute kidney injury, markedly elevated troponin. Her blood gases showed that she was acidotic, hypoxic hypercapnic respiratory failure and we had a lengthy discussion with the family and our healthcare social worker and a decision was made to keep her comfortable and she was started on Roxanol, Ativan, and scopolamine. Patient's level of consciousness deteriorated gradually and around 1:00 in the morning on 05/09/2018, the patient had asystole, no spontaneous breathing, no audible heart sounds, and no palpable pulsation. The patient was pronounced . The cause of was cardiopulmonary arrest, hyperkalemia, acute kidney injury, acute hypoxic hypercapnic respiratory failure. She has also lung cancer involving the left upper lobe metastasis. SEAN SIMPSON MD DR: ASAEL/anayeli JOB#: [id number] / [id number]
== END 2018-05-09 06:15 | disposition expired ==
LOC: ER 09:35 → ICU 13:35 → UNDOADMIN 13:35 → ICU 13:36
PROVIDERS: ADMIT Internal Medicine; ATTEND Internal Medicine
DX: I21.4 Non-ST elevation (NSTEMI) myocardial infarction (principal); J96.02 Acute respiratory failure with hypercapnia; J96.01 Acute respiratory failure with hypoxia; E87.2 Acidosis; N17.9 Acute kidney failure, unspecified; C34.12 Malignant neoplasm of upper lobe, left bronchus or lung; D72.829 Elevated white blood cell count, unspecified; E03.9 Hypothyroidism, unspecified; F32.9 Major depressive disorder, single episode, unspecified; M19.90 Unspecified osteoarthritis, unspecified site; E11.9 Type 2 diabetes mellitus without complications; E78.00 Pure hypercholesterolemia, unspecified; E86.0 Dehydration; E78.5 Hyperlipidemia, unspecified; G89.29 Other chronic pain; I48.91 Unspecified atrial fibrillation; I11.9 Hypertensive heart disease without heart failure; I25.10 Atherosclerotic heart disease of native coronary artery without angina pectoris; E87.5 Hyperkalemia; Z66 Do not resuscitate; Z85.118 Personal history of other malignant neoplasm of bronchus and lung; Z86.73 Personal history of transient ischemic attack (TIA), and cerebral infarction without residual deficits; Z79.899 Other long term (current) drug therapy; Z87.891 Personal history of nicotine dependence; Z95.5 Presence of coronary angioplasty implant and graft; I46.9 Cardiac arrest, cause unspecified
CPT/HCPCS: 36415; 70450; 71045; 80053; 82553; 82803; 82947; 83605; 83690; 83735; 83880; 84484; 85007; 85025; 85610; 85730; 87040; 87641; 87804; 93005; 96361; 96365; 96375; J0696; J1815; J2060; 99285-25; J7030